=== PATIENT | female | born 1975 | race African-American/Black ===

== ENCOUNTER 2017-04-09 20:06 | Emergency (ER) | payer MEDICARE, MEDICAID ==
[~2017-04-09] VITALS: Ht 162.6 cm; Wt 141.5 kg
[~2017-04-09 20:06] MED LIST: ALBUTEROL SULF8.5 GM INH; DOXYCYCLINE MO100 MG ORAL; GABAPENTIN300 MG ORAL; GLIPIZIDE5 MG ORAL; HYDROCHLOROTHIA25 MG ORAL; LOSARTAN POTASS50 MG ORAL; METFORMIN HCL1000 M1 ORAL; NORCO 5-325 TA1 EACH ORAL; PREDNISONE20 M1 PO; RANITIDINE HCL150 MG ORAL; ROBITUSSIN AC5 ML ORAL; SIMVASTATIN10 MG ORAL
[2017-04-09 21:09] LABS: BASOPHILS % (AUTO) 1.4 % (0.0-2.0); EOSINOPHILS % (AUTO) 3.4 % (0.0-3.0); HEMOGLOBIN 11.9 G/DL (12.0-16.0); LYMPHOCYTES % (AUTO) 30.6 % (20.0-45.0); MEAN CORPUSCULAR VOLUME 86 FL (80-99); MONOCYTES % (AUTO) 6.2 % (1.0-10.0); NEUTROPHILS % (AUTO) 58.4 % (45.0-75.0); PLATELET COUNT 347 K/UL (150-450); RED BLOOD COUNT 4.75 M/UL (4.20-5.40); WHITE BLOOD COUNT 11.1 K/UL (4.8-10.8)
[2017-04-09 21:16] LABS: ANION GAP 11 mmol/L (5-15); BLOOD UREA NITROGEN 12 mg/dL (7-18); CARBON DIOXIDE 26 MMOL/L (21-32); CHLORIDE 102 MMOL/L (98-107); POTASSIUM 3.5 MMOL/L (3.5-5.1); SODIUM 139 MMOL/L (136-145)
[2017-04-09 21:29] LABS: ALANINE AMINOTRANSFERASE 21 U/L (12-78); ALBUMIN 3.9 G/DL (3.4-5.0); ALKALINE PHOSPHATASE 52 U/L (46-116); ASPARTATE AMINO TRANSFERASE 12 U/L (15-37); BILIRUBIN,TOTAL 0.3 MG/DL (0.2-1.0); CKMB 1.6 NG/ML (0.0-3.6); CREATINE KINASE 259 U/L (26-308)
[2017-04-09 22:05] VITALS: BP 132/78
[2017-04-09 22:10] VITALS: BP 131/82
--- NOTE | 2017-04-09 22:23 | Emergency Room Report ---
History of Present Illness General Chief Complaint: Chest Pain Source: Patient Present Illness HPI 41-year-old female presents ED complaining of chest pain. Started earlier today while at rest. Pain is localized to left side of the chest and underneath the left arm. 8/10, sharp. Nonradiating. Patient was seen at [facility] urgent care today and was diagnosed with muscle strain of was told to come to emergency room to "rule out ACS". History of hypertension and diabetes. Denies smoking or drug use. No other aggravating or leading factors. Denies any other associated symptoms Allergies: Coded Allergies: BENAZEPRIL (Verified Allergy, 06/10/13) Patient History Past Medical History: DM, HTN, COPD Past Surgical History: none Pertinent Family History: none Social History: Denies: smoking, alcohol use, drug use Last Menstrual Period: Mar 18 Now: No : 0 Immunizations: UTD Reviewed Nursing Documentation: PMH: Agreed, PSxH: Agreed Nursing Documentation-PMH Hx Cardiac Problems: Yes - sob Hx Hypertension: Yes Hx Asthma: Yes Hx COPD: Yes Hx Diabetes: Yes Hx Cancer: No Hx Gastrointestinal Problems: No Hx Neurological Problems: No Review of Systems All Other Systems: negative except mentioned in HPI Physical Exam Vital Signs Date Time Temp Pulse Resp B/P (MAP) Pulse Ox O2 Delivery O2 Flow Rate FiO2 04/09/17 20:15 99.0 92 18 131/82 98 Room Air Sp02 EP Interpretation: reviewed, normal General Appearance: no apparent distress, alert, GCS 15, non-toxic, obese Head: normocephalic, atraumatic Eyes: bilateral eye normal inspection, bilateral eye PERRL ENT: hearing grossly normal, normal pharynx, no angioedema, normal voice Neck: full range of motion, supple/symm/no masses Respiratory: lungs clear, normal breath sounds, speaking full sentences, other - L sided reproducible chest wall pain Cardiovascular #1: regular rate, rhythm, no edema Cardiovascular #2: 2+ carotid (R), 2+ carotid (L), 2+ radial (R), 2+ radial (L) , 2+ dorsalis pedis (R), 2+ dorsalis pedis (L) Gastrointestinal: normal bowel sounds, non tender, soft, non-distended, no guarding, no rebound Rectal: deferred Genitourinary: normal inspection, no CVA tenderness Musculoskeletal: back normal, gait/station normal, normal range of motion, non- tender Neurologic: alert, oriented x3, responsive, motor strength/tone normal, sensory intact, speech normal Psychiatric: judgement/insight normal, memory normal, mood/affect normal, no suicidal/homicidal ideation Reflexes: 3+ bicep (R), 3+ bicep (L), 3+ tricep (R), 3+ tricep (L), 3+ knee (R) , 3+ knee (L) Skin: normal color, no rash, warm/dry, well hydrated Lymphatic: no adenopathy Medical Decision Making Diagnostic Impression: Primary Impression: Chest wall pain ER Course Hospital Course 41 yo F presents to ED c/o chest pain. Differential diagnoses include: Rib fracture, ND/unstable angina, contusion, muscle strain Clinical course Patient placed on stretcher. After initial history and physical I ordered labs , EKG, chest x-ray. labs reviewed- all electrolytes normal, troponins negative, no leukocytosis, hemoglobin/hematocrit stable EKG - NSR, no acute ischemic changes interpreted by me Chest x-ray-no cardiomegaly, no rib fracture, no pneumothorax, no acute process Discussed findings with the patient. I agreed that the pain is likely muscular. Patient was prescribed Motrin and muscle asked her by urgent care. However I do recommend followup with PMD I. I feel this is a highly complex case requiring extensive working including EKG/Rhythm strip, Xray/CT/US, Blood/urine lab work, repeat exams while in ED, and administration of strong opiates/narcotics for pain control, admission to hospital or close patient follow up. Diagnosis - chest wall pain Stable and discharged to home. Instructed to followup with PMD. Return to ED if symptoms recur or worsen Labs Test 04/09/17 20:50 White Blood Count 11.1 K/UL (4.8-10.8) Red Blood Count 4.75 M/UL (4.20-5.40) Hemoglobin 11.9 G/DL (12.0-16.0) Hematocrit 41.0 % (37.0-47.0) Mean Corpuscular Volume 86 FL (80-99) Mean Corpuscular Hemoglobin 25.1 PG (27.0-31.0) Mean Corpuscular Hemoglobin Concent 29.1 G/DL (32.0-36.0) Red Cell Distribution Width 15.0 % (11.6-14.8) Platelet Count 347 K/UL (150-450) Mean Platelet Volume 5.6 FL (6.5-10.1) Neutrophils (%) (Auto) 58.4 % (45.0-75.0) Lymphocytes (%) (Auto) 30.6 % (20.0-45.0) Monocytes (%) (Auto) 6.2 % (1.0-10.0) Eosinophils (%) (Auto) 3.4 % (0.0-3.0) Basophils (%) (Auto) 1.4 % (0.0-2.0) Sodium Level 139 MMOL/L (136-145) Potassium Level 3.5 MMOL/L (3.5-5.1) Chloride Level 102 MMOL/L (98-107) Carbon Dioxide Level 26 MMOL/L (21-32) Anion Gap 11 mmol/L (5-15) Blood Urea Nitrogen 12 mg/dL (7-18) Creatinine 1.0 MG/DL (0.55-1.30) Estimat Glomerular Filtration Rate > 60 mL/min (>60) Glucose Level 89 MG/DL (74-106) Calcium Level 9.0 MG/DL (8.5-10.1) Total Bilirubin 0.3 MG/DL (0.2-1.0) Aspartate Amino Transf (AST/SGOT) 12 U/L (15-37) Alanine Aminotransferase (ALT/SGPT) 21 U/L (12-78) Alkaline Phosphatase 52 U/L (46-116) Total Creatine Kinase 259 U/L (26-308) Creatine Kinase MB 1.6 NG/ML (0.0-3.6) Creatine Kinase MB Relative Index 0.6 Troponin I 0.000 ng/mL (0.000-0.056) Pro-B-Type Natriuretic Peptide 25 pg/mL (0-125) Total Protein 7.8 G/DL (6.4-8.2) Albumin 3.9 G/DL (3.4-5.0) Globulin 3.9 g/dL Albumin/Globulin Ratio 1.0 (1.0-2.7) EKG Diagnostic Results Rate: normal Rhythm: NSR ST Segments: no acute changes ASA given to the pt in ED: No Rhythm Strip Diag. Results EP Interpretation: yes Rhythm: NSR, no PVC's, no ectopy Chest X-Ray Diagnostic Results Chest X-Ray Diagnostic Results : Chest X-Ray Ordered: Yes # of Views/Limited/Complete: 1 View Indication: Chest Pain EP Interpretation: Yes Interpretation: no consolidation, no effusion, no pneumothorax, no acute cardiopulmonary disease Impression: No acute disease Electronically Signed by: Electronically signed by Herbert Petersen MD Last Vital Signs Date Time Temp Pulse Resp B/P (MAP) Pulse Ox O2 Delivery O2 Flow Rate FiO2 04/09/17 22:10 99.0 18 131/82 98 Room Air 04/09/17 22:05 78 Status: improved Disposition: HOME, SELF-CARE Condition: Stable Referrals: NON PHYSICIAN (PCP) Patient Instructions: Chest Wall Pain, [id number] HERBERT PETERSEN M.D. Apr 09, 2017 22:23
--- NOTE | 2017-04-10 13:18 | Cardiology Report ---
APPROVED REPORT EKG Measurement Heart [id number] Normal sinus rhythm Normal ECG
--- NOTE | 2017-04-10 13:42 | Diagnostic Imaging Report ---
Indication: Chest pain Technique: XRAY Chest 1v Comparison: 09/12/2013 Findings: Limited exam due to underpenetration. Stable cardiomegaly. No definite focal airspace consolidation. No pleural effusion or pneumothorax. No acute bony abnormality appreciated. Impression: Limited exam. Stable cardiomegaly. No radiographic evidence of acute cardiopulmonary disease.
== END 2017-04-09 22:15 | disposition home or self-care (01) ==
LOC: EMR 20:50
DX: R07.89 Other chest pain (principal); J44.9 Chronic obstructive pulmonary disease, unspecified; I10 Essential (primary) hypertension; E11.9 Type 2 diabetes mellitus without complications; Z88.8 Allergy status to other drugs, medicaments and biological substances
CPT/HCPCS: 36415; 71045; 80053; 82550; 82553; 83880; 84484; 85025; 93005; 99283

== ENCOUNTER 2017-04-24 18:13 | Emergency (ER) | payer MEDICARE, MEDICAID ==
[~2017-04-24] VITALS: Ht 162.6 cm; Wt 163.3 kg
[2017-04-24 18:24] VITALS: BP 96/47
[2017-04-24] MEDS ORDERED: GLIPIZIDE10 MG PO (18:56)
[2017-04-24 19:43] LABS: BASOPHILS % (AUTO) 1.1 % (0.0-2.0); EOSINOPHILS % (AUTO) 2.5 % (0.0-3.0); LYMPHOCYTES % (AUTO) 24.7 % (20.0-45.0); MEAN CORPUSCULAR VOLUME 86 FL (80-99); MONOCYTES % (AUTO) 6.6 % (1.0-10.0); NEUTROPHILS % (AUTO) 65.2 % (45.0-75.0); PLATELET COUNT 357 K/UL (150-450); RED BLOOD COUNT 4.66 M/UL (4.20-5.40); RED CELL DISTRIBUTION WIDTH 15.1 % (11.6-14.8); WHITE BLOOD COUNT 11.1 K/UL (4.8-10.8)
[2017-04-24 19:58] LABS: ANION GAP 9 mmol/L (5-15); BLOOD UREA NITROGEN 11 mg/dL (7-18); CALCIUM 9.2 MG/DL (8.5-10.1); CARBON DIOXIDE 26 MMOL/L (21-32); CHLORIDE 101 MMOL/L (98-107); CREATININE 0.8 MG/DL (0.55-1.30); POTASSIUM 3.6 MMOL/L (3.5-5.1); SODIUM 136 MMOL/L (136-145)
[2017-04-24 20:13] LABS: ALANINE AMINOTRANSFERASE 20 U/L (12-78); ALBUMIN 3.8 G/DL (3.4-5.0); ALKALINE PHOSPHATASE 51 U/L (46-116); ASPARTATE AMINO TRANSFERASE 13 U/L (15-37); BILIRUBIN,TOTAL 0.4 MG/DL (0.2-1.0); CKMB 1.9 NG/ML (0.0-3.6); CREATINE KINASE 282 U/L (26-308)
--- NOTE | 2017-04-24 21:03 | Emergency Room Report ---
History of Present Illness General Chief Complaint: Upper Respiratory Illness Source: Patient, Medical Record Present Illness HPI 42 yo female patient presents to ER complaining of SOB for a "few hours". Patient states she thinks she may have PNA. Patient reports doing a breathing treatment at home that did not alleviate her symptoms. Patient states she needs a refill of her albuterol medication. Patient reports a history of sick contacts. Patient was seen in ER 2 weeks ago for chest pain and discharged Patient denies fever, nausea, vomiting, chest pain, purulent cough. Allergies: Coded Allergies: BENAZEPRIL (Verified Allergy, 06/10/13) Patient History Past Medical History: see triage record Social History: Denies: smoking, alcohol use, drug use Last Menstrual Period: long time ago Reviewed Nursing Documentation: PMH: Agreed, PSxH: Agreed Nursing Documentation-PMH Past Medical History: No History, Except For Hx Cardiac Problems: Yes - sob Hx Hypertension: Yes Hx Asthma: Yes Hx COPD: Yes Hx Diabetes: Yes Hx Cancer: No Hx Gastrointestinal Problems: No Hx Neurological Problems: No Review of Systems All Other Systems: negative except mentioned in HPI Physical Exam Vital Signs Date Time Temp Pulse Resp B/P (MAP) Pulse Ox O2 Delivery O2 Flow Rate FiO2 04/24/17 18:17 97.9 103 18 96/47 96 Room Air Sp02 EP Interpretation: reviewed, normal General Appearance: well appearing, no apparent distress, alert, non-toxic, obese Head: normocephalic, atraumatic Eyes: bilateral eye normal inspection, bilateral eye PERRL ENT: hearing grossly normal, normal pharynx, no angioedema, normal voice, TMs + canals normal, uvula midline, moist mucus membranes Neck: full range of motion Respiratory: normal breath sounds, no respiratory distress, no retraction, no accessory muscle use, rhonchi - intermittent, mild at lower lung bases, speaking full sentences, other - no stridor Cardiovascular #1: regular rate, rhythm Cardiovascular #2: 2+ radial (R), 2+ radial (L) Gastrointestinal: normal bowel sounds, non tender, soft, non-distended, no guarding, no rebound Musculoskeletal: back normal, digits/nails normal, gait/station normal, normal range of motion, non-tender, no calf tenderness, Tserling's Sign negative Neurologic: alert, oriented x3, responsive, motor strength/tone normal, sensory intact, speech normal Psychiatric: mood/affect normal Skin: normal color, no rash, warm/dry, well hydrated Lymphatic: no adenopathy Medical Decision Making PA Attestation Dr. Morgan is my supervising Physician whom patient management has been discussed with. Diagnostic Impression: Primary Impression: Upper respiratory infection ER Course Pt presents to ED c/o SOB. DDX considered but are not limited to influenza, viral URI, pneumonia, PE, NC, afib. VITALS Patient afebrile. Patient tachycardic and hypotensive. ER COURSE After consultation with Dr. Morgan, patient placed in monitored bed. Began workup to rule out underlying cardiac cause. Patient provided with prednisone in ER for breathing difficulty. Patient provided with IV fluids to increase blood pressure. Labs negative for elevated troponin, CK-MB and BNP within normal range. Influenza nasal swab negative for influenza A and B. CXR negative for acute disease. EKG negative for acute ST elevation or arrhythmia. At this time clinical suspicion for PE or cardiac cause of symptoms is unlikely , likely viral cause of symptoms. Vital signs improved. Discussed with patient course of treatment and likely diagnosis. Patient expressed understanding and agreement of treatment plan. DISCHARGE: Pt is stable for d/c to home. Patient to take medications as instructed. Will provide with patient care instructions and any necessary prescriptions. Care plan and follow-up instructions provided. Patient instructed to follow-up with primary care provider in 3 - 5 days. Patient questions asked and answered. ER precautions given. Patient instructed to return to ER immediately for any new or worsening of symptoms including but not limited to increasing SOB, persistent fever. Labs Test 04/24/17 19:15 White Blood Count 11.1 K/UL (4.8-10.8) Red Blood Count 4.66 M/UL (4.20-5.40) Hemoglobin 12.0 G/DL (12.0-16.0) Hematocrit 40.0 % (37.0-47.0) Mean Corpuscular Volume 86 FL (80-99) Mean Corpuscular Hemoglobin 25.8 PG (27.0-31.0) Mean Corpuscular Hemoglobin Concent 30.1 G/DL (32.0-36.0) Red Cell Distribution Width 15.1 % (11.6-14.8) Platelet Count 357 K/UL (150-450) Mean Platelet Volume 6.0 FL (6.5-10.1) Neutrophils (%) (Auto) 65.2 % (45.0-75.0) Lymphocytes (%) (Auto) 24.7 % (20.0-45.0) Monocytes (%) (Auto) 6.6 % (1.0-10.0) Eosinophils (%) (Auto) 2.5 % (0.0-3.0) Basophils (%) (Auto) 1.1 % (0.0-2.0) Sodium Level 136 MMOL/L (136-145) Potassium Level 3.6 MMOL/L (3.5-5.1) Chloride Level 101 MMOL/L (98-107) Carbon Dioxide Level 26 MMOL/L (21-32) Anion Gap 9 mmol/L (5-15) Blood Urea Nitrogen 11 mg/dL (7-18) Creatinine 0.8 MG/DL (0.55-1.30) Estimat Glomerular Filtration Rate > 60 mL/min (>60) Glucose Level 118 MG/DL (74-106) Calcium Level 9.2 MG/DL (8.5-10.1) Total Bilirubin 0.4 MG/DL (0.2-1.0) Aspartate Amino Transf (AST/SGOT) 13 U/L (15-37) Alanine Aminotransferase (ALT/SGPT) 20 U/L (12-78) Alkaline Phosphatase 51 U/L (46-116) Total Creatine Kinase 282 U/L (26-308) Creatine Kinase MB 1.9 NG/ML (0.0-3.6) Creatine Kinase MB Relative Index 0.6 Troponin I 0.000 ng/mL (0.000-0.056) Pro-B-Type Natriuretic Peptide 17 pg/mL (0-125) Total Protein 7.7 G/DL (6.4-8.2) Albumin 3.8 G/DL (3.4-5.0) Globulin 3.9 g/dL Albumin/Globulin Ratio 1.0 (1.0-2.7) EKG Diagnostic Results EKG Time: 19:05 Rate: tachycardiac Rhythm: NSR ST Segments: no acute changes Other Impression Sinus tachycardia Possible left atrial enlargement Borderline ECG ASA given to the pt in ED: No JEN WesleyibPeewee Griffith PA-C Rhythm Strip Diag. Results Rhythm Strip Time: 19:05 EP Interpretation: yes Rate: 101 Rhythm: NSR, no PVC's, no ectopy PA Scribe Text Carmine Griffith PA-C Chest X-Ray Diagnostic Results Chest X-Ray Diagnostic Results : Chest X-Ray Ordered: Yes # of Views/Limited/Complete: 1 View Indication: Shortness of Breath EP Interpretation: Yes PA Xray: Interpretation reviewed, by supervising MD, and agrees with findings. Interpretation: no consolidation, no effusion, no pneumothorax Impression: No acute disease JEN Scribe Text Carmine Griffith PA-C Last Vital Signs Date Time Temp Pulse Resp B/P (MAP) Pulse Ox O2 Delivery O2 Flow Rate FiO2 04/24/17 18:24 103 18 Room Air 04/24/17 18:24 97.9 96/47 96 Status: improved Reevaluation Impression Patient resting comfortably, in no acute distress, non-toxic appearing. Patients lung clear to auscultation on wheezes, rhonchi, crackles. Patient states she feels comfortable to be discharged home. Reports she will fill prescriptions and begin breathing treatment at home. Disposition: HOME, SELF-CARE Condition: Stable Scripts Prednisone* (PREDNISONE*) 20 Mg Tablet 20 MG ORAL DAILY for 2 Days, #2 TAB 0 Refills Prov: Miki Griffith 04/24/17 Albuterol Sulfate* (ALBUTEROL SULFATE HHN*) 2.5 Mg/3 Ml Vial.neb 3 ML INH Q6H Y for Shortness of Breath, #30 EA 0 Refills Prov: Miki Griffith 04/24/17 Albuterol Sulfate* (ALBUTEROL SULFATE MDI*) 8.5 Gm Hfa.aer.ad 2 PUFF INH Q6H, #1 INH 0 Refills Prov: Miki Griffith 04/24/17 Oseltamivir Phosphate (Tamiflu) 75 Mg Capsule 75 MG ORAL TWICE A DAY for 7 Days, #14 CAP Prov: Miki Griffith 04/24/17 Referrals: NOT CHOSEN IPA/,REFERRING (PCP) Patient Instructions: Upper Respiratory Infection, Adult Additional Instructions: Followup with primary care provider in 3 -5 days. Take medications as directed. Patient questions asked and answered. ER precautions given, patient instructed to return to ER immediately for any new or worsening of symptoms. Miki Griffith Apr 24, 2017 21:03
[2017-04-24] MEDS ORDERED: ALBUTEROL SULF8.5 GM INH (21:11)
[2017-04-24] MEDS ORDERED: TAMIFLU75 MG ORAL (21:11)
[2017-04-24] MEDS ORDERED: ALBUTEROL2.5 MG/3 M INH (21:15)
[2017-04-24] MEDS ORDERED: PREDNISONE20 MG ORAL (21:29)
[2017-04-24 21:45] VITALS: BP 107/62
[2017-04-24 21:58] VITALS: BP 107/62
--- NOTE | 2017-04-25 11:14 | Diagnostic Imaging Report ---
Indication: Chest pain Technique: XRAY Chest 1v Comparison: 04/09/2017 Findings: Limited exam due to underpenetration. Heart is enlarged but stable. No definite focal airspace consolidation. No pleural effusion or pneumothorax. No acute bony abnormality appreciated. Impression: Limited exam. No radiographic evidence of acute cardiopulmonary disease. Stable cardiomegaly.
[2017-04-25] MEDS ORDERED: PREDNISONE20 MG ORAL (19:27)
[2017-04-25] MEDS ORDERED: ALBUTEROL2.5 MG/3 M HHN (19:27)
--- NOTE | 2017-05-04 13:57 | Cardiology Report ---
APPROVED REPORT EKG Measurement Heart [id number] Sinus tachycardia Possible Left atrial enlargement Borderline ECG
== END 2017-04-24 21:58 | disposition home or self-care (01) ==
LOC: EMR 19:40
DX: J06.9 Acute upper respiratory infection, unspecified (principal); I10 Essential (primary) hypertension; J44.9 Chronic obstructive pulmonary disease, unspecified; E11.9 Type 2 diabetes mellitus without complications; Z88.8 Allergy status to other drugs, medicaments and biological substances
CPT/HCPCS: 36415; 71045; 80053; 82550; 82553; 83880; 84484; 85025; 86710; 93005; 96374; 99284; J7512

== ENCOUNTER 2017-04-25 18:14 | Emergency (ER) | payer MEDICARE, MEDICAID ==
[~2017-04-25] VITALS: Ht 162.6 cm; Wt 163.3 kg
[~2017-04-25 18:14] MED LIST changes: +ALBUTEROL2.5 MG/3 M INH; +GLIPIZIDE10 MG PO; +PREDNISONE20 MG ORAL; +TAMIFLU75 MG ORAL
[2017-04-25] MEDS ORDERED: Ipratropium 0.02% Inh Soln 2.5ml UD HHN ONE (18:30)
[2017-04-25] MEDS ORDERED: Albuterol ud Inhalation HHN ONE (18:30)
[2017-04-25] MEDS ORDERED: PREDNISONE20 MG ORAL (19:27)
[2017-04-25] MEDS ORDERED: ALBUTEROL2.5 MG/3 M HHN (19:27)
[2017-04-25 19:36] VITALS: BP 138/89
--- NOTE | 2017-04-25 21:14 | Emergency Room Report ---
History of Present Illness General Chief Complaint: Asthma Source: Patient Present Illness HPI 42-year-old female presents to ED for evaluation. Patient presented with cough and shortness of breath. Was seen here yesterday and was discharged prescriptions for albuterol and prednisone. States that she was unable to fill her prescriptions. Presents with cough which is dry. Shortness of breath. History of asthma. Denies fevers or chills. No other aggravating relieving factors. Denies any other associated symptoms Allergies: Coded Allergies: BENAZEPRIL (Verified Allergy, 06/10/13) Patient History Past Medical History: HTN, asthma, COPD Past Surgical History: none Pertinent Family History: none Social History: Denies: smoking, alcohol use, drug use Last Menstrual Period: 04/17/2017 Now: No Immunizations: UTD Reviewed Nursing Documentation: PMH: Agreed, PSxH: Agreed Nursing Documentation-PMH Past Medical History: No History, Except For Hx Cardiac Problems: Yes Hx Hypertension: Yes Hx Asthma: Yes Hx COPD: Yes Hx Diabetes: Yes Hx Cancer: No Hx Gastrointestinal Problems: No Hx Dialysis: No History Of Psychiatric Problem: No Hx Neurological Problems: No Review of Systems All Other Systems: negative except mentioned in HPI Physical Exam Vital Signs Date Time Temp Pulse Resp B/P (MAP) Pulse Ox O2 Delivery O2 Flow Rate FiO2 04/25/17 18:18 98.1 102 18 145/84 95 Room Air 04/25/17 18:35 21 Sp02 EP Interpretation: reviewed, normal General Appearance: no apparent distress, alert, GCS 15, non-toxic, obese Head: normocephalic, atraumatic Eyes: bilateral eye normal inspection, bilateral eye PERRL ENT: hearing grossly normal, normal pharynx, no angioedema, normal voice Neck: full range of motion, supple/symm/no masses Respiratory: chest non-tender, lungs clear, normal breath sounds, speaking full sentences Cardiovascular #1: regular rate, rhythm, no edema Cardiovascular #2: 2+ carotid (R), 2+ carotid (L), 2+ radial (R), 2+ radial (L) , 2+ dorsalis pedis (R), 2+ dorsalis pedis (L) Gastrointestinal: normal bowel sounds, non tender, soft, non-distended, no guarding, no rebound Rectal: deferred Genitourinary: normal inspection, no CVA tenderness Musculoskeletal: back normal, gait/station normal, normal range of motion, non- tender Neurologic: alert, oriented x3, responsive, motor strength/tone normal, sensory intact, speech normal Psychiatric: judgement/insight normal, memory normal, mood/affect normal, no suicidal/homicidal ideation Reflexes: 3+ bicep (R), 3+ bicep (L), 3+ tricep (R), 3+ tricep (L), 3+ knee (R) , 3+ knee (L) Skin: normal color, no rash, warm/dry, well hydrated Lymphatic: no adenopathy Medical Decision Making Diagnostic Impression: Primary Impression: Upper respiratory infection Qualified Codes: J06.9 - Acute upper respiratory infection, unspecified ER Course Hospital Course 42-year-old female presents to ED complaining of cough Differential diagnoses include: URI, bronchitis, asthma/COPD, pneumonia Clinical course Patient placed on stretcher. After initial history and physical I ordered prednisone and nebulizer treatment. Upon reassessment patient states cough and symptoms have improved. Patient states she was unable to fill her prescription yesterday because there is no ICD 10 code. We provided her with a new prescription of albuterol prednisone with a proper diagnosis Diagnosis - URI Stable and discharged home with prescriptions for Rx prednisone, albuterol. Instructed to followup with PMD. Return to ED if symptoms recur or worsen Last Vital Signs Date Time Temp Pulse Resp B/P (MAP) Pulse Ox O2 Delivery O2 Flow Rate FiO2 04/25/17 19:36 98.0 89 20 138/89 97 Room Air 04/25/17 18:35 21 Status: improved Disposition: HOME, SELF-CARE Condition: Stable Scripts Prednisone* (PREDNISONE*) 20 Mg Tablet 40 MG ORAL DAILY, #10 TAB Prov: ADRIA WITT M.D. 04/25/17 Albuterol Sulfate* (ALBUTEROL SULFATE HHN*) 2.5 Mg/3 Ml Vial.neb 2.5 MG HHN Q4H Y for Shortness of Breath, #25 VIAL Prov: ADRIA WITT M.D. 04/25/17 Referrals: NON PHYSICIAN (PCP) Patient Instructions: Asthma, Adult ADRIA WITT M.D. Apr 25, 2017 21:14
== END 2017-04-25 19:37 | disposition home or self-care (01) ==
LOC: EMR 18:28
DX: J06.9 Acute upper respiratory infection, unspecified (principal); Z88.8 Allergy status to other drugs, medicaments and biological substances; I10 Essential (primary) hypertension; J45.909 Unspecified asthma, uncomplicated; J44.9 Chronic obstructive pulmonary disease, unspecified; E11.9 Type 2 diabetes mellitus without complications
CPT/HCPCS: 94640; 99284; J7512

== ENCOUNTER 2017-04-27 13:27 | Inpatient (IN) | payer MEDICARE, MEDICAID ==
[~2017-04-27] VITALS: Ht 157.5 cm; Wt 122.5 kg
[~2017-04-27 13:27] MED LIST changes: +ALBUTEROL2.5 MG/3 M HHN
[2017-04-27] MEDS ORDERED: Albuterol/Ipratropium 3ml neb HHN ONE (13:45)
[2017-04-27 14:45] LABS: ANION GAP 12 mmol/L (5-15); BLOOD UREA NITROGEN 12 mg/dL (7-18); CALCIUM 9.4 MG/DL (8.5-10.1); CARBON DIOXIDE 26 MMOL/L (21-32); CHLORIDE 107 MMOL/L (98-107); POTASSIUM 4.3 MMOL/L (3.5-5.1); SODIUM 144 MMOL/L (136-145)
[2017-04-27 14:58] LABS: APPEARANCE,URINE CLEAR; BILIRUBIN, URINE NEGATIVE (NEGATIVE); COLOR,URINE PALE YELLOW; GLUCOSE, URINE (UA) 4+ (NEGATIVE); KETONES,URINE NEGATIVE (NEGATIVE); LEUKOCYTE ESTERASE ,URINE NEGATIVE (NEGATIVE); NITRITE,URINE NEGATIVE (NEGATIVE); PH,URINE 6 (4.5-8.0); PROTEIN,URINE NEGATIVE (NEGATIVE); UROBILINOGEN,URINE NORMAL MG/DL (0.0-1.0)
[2017-04-27 14:58] LABS: ALANINE AMINOTRANSFERASE 25 U/L (12-78); ALBUMIN/GLOBULIN RATIO 1.1 (1.0-2.7); ALKALINE PHOSPHATASE 53 U/L (46-116); ASPARTATE AMINO TRANSFERASE 14 U/L (15-37); BASOPHILS % (AUTO) 0.9 % (0.0-2.0); BILIRUBIN,TOTAL 0.2 MG/DL (0.2-1.0); EOSINOPHILS % (AUTO) 0.3 % (0.0-3.0); HEMATOCRIT 38.8 % (37.0-47.0); HEMOGLOBIN 11.8 G/DL (12.0-16.0); LYMPHOCYTES % (AUTO) 15.1 % (20.0-45.0); MEAN CORPUSCULAR VOLUME 88 FL (80-99); MONOCYTES % (AUTO) 3.7 % (1.0-10.0); PLATELET COUNT 360 K/UL (150-450); RED BLOOD COUNT 4.43 M/UL (4.20-5.40); RED CELL DISTRIBUTION WIDTH 15.3 % (11.6-14.8)
[2017-04-27 15:10] LABS: INR 0.9 (0.9-1.1)
[2017-04-27] MEDS ORDERED: Albuterol/Ipratropium 3ml neb HHN PRN (15:45)
[2017-04-27] MEDS ORDERED: Nitroglycerin Subl 0.4mg tab SL PRN (15:45)
[2017-04-27] MEDS ORDERED: dilTIAZem HCl 25mg/5ml Inj IV PRN (15:45)
[2017-04-27] MEDS ORDERED: Ketorolac 30mg Inj IV PRN (15:45)
[2017-04-27] MEDS ORDERED: Miralax 17gm pkt ORAL PRN (15:45)
[2017-04-27 16:48] VITALS: BP 153/78
[2017-04-27] MEDS: NovoLOG Insulin Flexpen SUBQ SCH ×2 (17:13→22:28)
--- NOTE | 2017-04-27 18:54 | History and Physical ---
History of Present Illness General Date patient seen: Apr 27, 2017 Reason for Hospitalization: Upper Respiratory Illness Present Illness HPI 42-year-old female with hx of asthma, morbid obesity presented to ED for evaluation of cough and shortness of breath. Denies fevers or chills. No other aggravating relieving factors. She was seen twice in the recent days in the ER and was discharged with oral abx and steroids, She kept coming back because she was not getting better. Allergies: Coded Allergies: TREE NUT (Verified Allergy, Severe, 04/27/17) SOYBEAN (Verified Allergy, Intermediate, 04/27/17) BENAZEPRIL (Verified Allergy, Unknown, 04/27/17) Medication History Scheduled Albuterol Sulfate* (Albuterol Sulfate Mdi*), 2 PUFF INH Q6H Hydrochlorothiazide* (Hydrochlorothiazide*), 25 MG ORAL DAILY, (Reported) Losartan Potassium* (Losartan Potassium*), 100 MG ORAL DAILY, (Reported) Metformin Hcl* (Metformin Hcl*), 1,000 MG ORAL BID, (Reported) Oseltamivir Phosphate (Tamiflu), 75 MG ORAL TWICE A DAY Prednisone* (Prednisone*), 20 MG ORAL DAILY Prednisone* (Prednisone*), 40 MG ORAL DAILY Ranitidine Hcl* (Zantac*), 150 MG ORAL DAILY, (Reported) Simvastatin (Zocor), 10 MG ORAL BEDTIME, (Reported) Miscellaneous Medications Glipizide (Glipizide), 10 MG PO, (Reported) Discontinued Medications Doxycycline Monohydrate* (Doxycycline Monohydrate*), 100 MG ORAL Q12H Discontinued Reason: Therapy completed Guaifenesin/Codeine (Guaifenesin-Codeine Syrup), 5 ML ORAL Q4H PRN for For Cough Discontinued Reason: Therapy completed Hydrocodone Bit/Acetaminophen 5-325* ([place] 5-325*), 1 TAB ORAL Q6H PRN for For Pain Discontinued Reason: Therapy completed Hydrocodone Bit/Acetaminophen 5-325* ([place] 5-325*), 1 TAB ORAL Q6H PRN for For Pain Discontinued Reason: Therapy completed Prednisone (Prednisone), 20 MG PO DAILY Discontinued Reason: Medication dose changed Patient History Healthcare decision maker Resuscitation status Full Code Advanced Directive on File Past Medical/Surgical History Past Medical/Surgical History: (1) History of asthma Review of Systems All Other Systems: negative except mentioned in HPI Physical Exam General Appearance: WD/WN Lines, tubes and drains: peripheral HEENT: normocephalic Neck: non-tender, normal alignment Respiratory/Chest: chest wall non-tender, rhonchi - left, rhonchi - right Cardiovascular/Chest: normal peripheral pulses, normal rate Abdomen: normal bowel sounds, non tender Extremities: normal range of motion, non-tender Last 24 Hour Vital Signs Date Time Temp Pulse Resp B/P (MAP) Pulse Ox O2 Delivery O2 Flow Rate FiO2 04/27/17 16:52 89 19 Room Air 04/27/17 16:48 98.0 88 18 153/78 97 Room Air 04/27/17 15:37 98.1 20 132/71 98 Room Air 21 04/27/17 14:16 100 20 Room Air 21 04/27/17 14:14 100 20 98 Room Air 21 04/27/17 14:04 103 20 95 Room Air 21 04/27/17 13:30 98.1 100 18 147/74 97 Room Air Laboratory Tests Test 04/27/17 14:00 04/27/17 14:05 Urine Color Pale yellow Urine Appearance Clear Urine pH 6 (4.5-8.0) Urine Specific [place] 1.010 (1.005-1.035) Urine Protein Negative (NEGATIVE) Urine Glucose (UA) 4+ (NEGATIVE) H Urine Ketones Negative (NEGATIVE) Urine Occult Blood Negative (NEGATIVE) Urine Nitrite Negative (NEGATIVE) Urine Bilirubin Negative (NEGATIVE) Urine Urobilinogen Normal MG/DL (0.0-1.0) Urine Leukocyte Esterase Negative (NEGATIVE) Urine RBC 0-2 /HPF (0 - 2) Urine WBC 0-2 /HPF (0 - 2) Urine Squamous Epithelial Cells Occasional /LPF Urine Bacteria Occasional /HPF (NONE) Urine HCG, Qualitative Negative White Blood Count 12.0 K/UL (4.8-10.8) H Red Blood Count 4.43 M/UL (4.20-5.40) Hemoglobin 11.8 G/DL (12.0-16.0) L Hematocrit 38.8 % (37.0-47.0) Mean Corpuscular Volume 88 FL (80-99) Mean Corpuscular Hemoglobin 26.5 PG (27.0-31.0) L Mean Corpuscular Hemoglobin Concent 30.3 G/DL (32.0-36.0) L Red Cell Distribution Width 15.3 % (11.6-14.8) H Platelet Count 360 K/UL (150-450) Mean Platelet Volume 5.9 FL (6.5-10.1) L Neutrophils (%) (Auto) 80.0 % (45.0-75.0) H Lymphocytes (%) (Auto) 15.1 % (20.0-45.0) L Monocytes (%) (Auto) 3.7 % (1.0-10.0) Eosinophils (%) (Auto) 0.3 % (0.0-3.0) Basophils (%) (Auto) 0.9 % (0.0-2.0) Prothrombin Time 9.7 SEC (9.30-11.50) Prothromb Time International Ratio 0.9 (0.9-1.1) Activated Partial Thromboplast Time 22 SEC (23-33) L D-Dimer 0.31 mg/L FEU (0.00-0.49) Sodium Level 144 MMOL/L (136-145) Potassium Level 4.3 MMOL/L (3.5-5.1) Chloride Level 107 MMOL/L (98-107) Carbon Dioxide Level 26 MMOL/L (21-32) Anion Gap 12 mmol/L (5-15) Blood Urea Nitrogen 12 mg/dL (7-18) Creatinine 1.0 MG/DL (0.55-1.30) Estimat Glomerular Filtration Rate > 60 mL/min (>60) Glucose Level 157 MG/DL (74-106) H Calcium Level 9.4 MG/DL (8.5-10.1) Total Bilirubin 0.2 MG/DL (0.2-1.0) Aspartate Amino Transf (AST/SGOT) 14 U/L (15-37) L Alanine Aminotransferase (ALT/SGPT) 25 U/L (12-78) Alkaline Phosphatase 53 U/L (46-116) Troponin I 0.000 ng/mL (0.000-0.056) Pro-B-Type Natriuretic Peptide 76 pg/mL (0-125) Total Protein 7.5 G/DL (6.4-8.2) Albumin 4.0 G/DL (3.4-5.0) Globulin 3.5 g/dL Albumin/Globulin Ratio 1.1 (1.0-2.7) Thyroid Stimulating Hormone (TSH) 1.148 uiU/mL (0.358-3.740) Height (Feet): 5 Height (Inches): 2.00 Weight (Pounds): 270 Medications Current Medications Medications (Trade) Dose Ordered Sig/Al Route PRN Reason Start Time Stop Time Status Last Admin Dose Admin Acetaminophen (Tylenol) 650 mg Q4H PRN ORAL FEVER 04/27/17 15:45 05/27/17 15:44 Albuterol/ Ipratropium (Albuterol/ Ipratropium) 3 ml Q4H PRN HHN Shortness of Breath 04/27/17 15:45 05/02/17 15:44 Aspirin (ASA) 162 mg DAILY ORAL 04/28/17 09:00 05/28/17 08:59 Dextrose (Dextrose 50%) STAT PRN IV Hypoglycemia 04/27/17 15:45 05/27/17 15:44 Diltiazem HCl (Cardizem) 10 mg Q1H PRN IV HR > 120 04/27/17 15:45 05/27/17 15:44 Heparin Sodium (Porcine) (Heparin 5000 units/ml) 5,000 units EVERY 8 HOURS SUBQ 04/27/17 22:00 05/27/17 21:59 Insulin Aspart (NovoLOG) BEFORE MEALS AND HS SUBQ 04/27/17 16:30 05/27/17 16:29 04/27/17 17:13 Morphine Sulfate (Morphine Sulfate) 2 mg Q4H PRN IVP severe Pain (Pain Scale 7-10) 04/27/17 15:45 05/04/17 15:44 Nitroglycerin (Ntg) 0.4 mg Every 5 Minutes PRN SL Prn Chest Pain 04/27/17 15:45 05/27/17 15:44 Ondansetron HCl (Zofran) 4 mg Q6H PRN IVP Nausea & Vomiting 04/27/17 15:45 05/27/17 15:44 Pantoprazole (Protonix) 40 mg DAILY ORAL 04/28/17 09:00 05/28/17 08:59 Polyethylene Glycol (Miralax) 17 gm DAILYPRN PRN ORAL Constipation 04/27/17 15:45 05/27/17 15:44 Temazepam (Restoril) 15 mg HSPRN PRN ORAL Insomnia 04/27/17 15:45 05/04/17 15:44 Assessment/Plan Problem List: (1) Acute asthma exacerbation ICD Codes: J45.901 - Unspecified asthma with (acute) exacerbation SNOMED: 008657303 (2) History of asthma ICD Codes: Z87.09 - Personal history of other diseases of the respiratory system SNOMED: 540924505 (3) Morbid obesity ICD Codes: E66.01 - Morbid (severe) obesity due to excess calories SNOMED: 470643938, [id number] Assessment/Plan respiratory treatment iv abx check sputum check echo. cardio to see. YAYA HEBERT Apr 27, 2017 18:54
[2017-04-27 20:00] VITALS: BP 121/61
[2017-04-27] MEDS: Heparin 5000 units/ml inj SUBQ SCH (22:29)
[2017-04-28] VITALS: BP 115/62
[2017-04-28 04:00] VITALS: BP 107/58
[2017-04-28] MEDS: Heparin 5000 units/ml inj SUBQ SCH ×3 (06:16→21:38)
[2017-04-28] MEDS: NovoLOG Insulin Flexpen SUBQ SCH ×4 (06:17→21:37)
[2017-04-28 08:00] VITALS: BP 131/79
[2017-04-28] MEDS: Aspirin Baby 81mg ORAL SCH (08:19)
[2017-04-28 08:21] LABS: BASOPHILS % (AUTO) 0.7 % (0.0-2.0); EOSINOPHILS % (AUTO) 0.7 % (0.0-3.0); HEMATOCRIT 34.8 % (37.0-47.0); HEMOGLOBIN 10.8 G/DL (12.0-16.0); LYMPHOCYTES % (AUTO) 33.5 % (20.0-45.0); MEAN CORPUSCULAR VOLUME 87 FL (80-99); MONOCYTES % (AUTO) 5.9 % (1.0-10.0); NEUTROPHILS % (AUTO) 59.2 % (45.0-75.0); PLATELET COUNT 319 K/UL (150-450); RED BLOOD COUNT 4.02 M/UL (4.20-5.40); RED CELL DISTRIBUTION WIDTH 14.9 % (11.6-14.8); WHITE BLOOD COUNT 13.8 K/UL (4.8-10.8)
[2017-04-28] MEDS: Morphine Sulfate 4mg/ml Inj IVP PRN (08:23)
[2017-04-28 08:29] LABS: CHOLESTEROL 134 MG/DL (< 200); HDL CHOLESTEROL 33 MG/DL (40-60); TRIGLYCERIDES 162 MG/DL (30-150)
[2017-04-28 12:00] VITALS: BP 133/87
--- NOTE | 2017-04-28 13:02 | Pulmonology Progress Note ---
Assessment/Plan Problems: (1) Acute asthma exacerbation (2) History of asthma (3) Morbid obesity Assessment/Plan check sputum check cultures titrate fio2 to sat of 92% Subjective ROS Limited/Unobtainable: No Interval Events: still short of breath Constitutional: Reports: no symptoms HEENT: Repors: no symptoms Respiratory: Reports: no symptoms Allergies: Coded Allergies: TREE NUT (Verified Allergy, Severe, 04/27/17) SOYBEAN (Verified Allergy, Intermediate, 04/27/17) BENAZEPRIL (Verified Allergy, Unknown, 04/27/17) Objective Last 24 Hour Vital Signs Date Time Temp Pulse Resp B/P (MAP) Pulse Ox O2 Delivery O2 Flow Rate FiO2 04/28/17 07:42 95 04/28/17 05:30 94 27 98 Nasal 21 04/28/17 04:00 97.7 77 18 107/58 98 04/28/17 04:00 81 04/28/17 03:22 93 32 99 Nasal 21 04/28/17 01:42 99 23 99 Nasal 21 04/28/17 00:00 97 04/28/17 00:00 91 04/28/17 00:00 97.4 91 20 115/62 100 04/27/17 20:00 98.8 98 20 121/61 100 04/27/17 16:52 89 19 Room Air 04/27/17 16:48 98.0 88 18 153/78 97 Room Air 04/27/17 15:37 98.1 20 132/71 98 Room Air 21 04/27/17 14:16 100 20 Room Air 21 04/27/17 14:14 100 20 98 Room Air 21 04/27/17 14:04 103 20 95 Room Air 21 04/27/17 13:30 98.1 100 18 147/74 97 Room Air Intake and Output 04/27/17 04/28/17 19:00 07:00 Intake Total 350 ml Balance 350 ml Intake Oral 350 ml # Voids 1 1 Objective General Appearance: WD/WN Lines, tubes and drains: peripheral HEENT: normocephalic Neck: non-tender, normal alignment Respiratory/Chest: chest wall non-tender, rhonchi - left, rhonchi - right Cardiovascular/Chest: normal peripheral pulses, normal rate Abdomen: normal bowel sounds, non tender Extremities: normal range of motion, non-tender General Appearance: WD/WN Laboratory Tests 04/27/17 14:00: Urine Color Pale yellow, Urine Appearance Clear, Urine pH 6, Urine Specific [place] 1.010, Urine Protein Negative, Urine Glucose (UA) 4+H, Urine Ketones Negative, Urine Occult Blood Negative, Urine Nitrite Negative, Urine Bilirubin Negative, Urine Urobilinogen Normal, Urine Leukocyte Esterase Negative, Urine RBC 0-2, Urine WBC 0-2, Urine Squamous Epithelial Cells Occasional, Urine Bacteria Occasional, Urine HCG, Qualitative Negative 04/27/17 14:05: White Blood Count 12.0H, Red Blood Count 4.43, Hemoglobin 11.8L, Hematocrit 38.8 , Mean Corpuscular Volume 88, Mean Corpuscular Hemoglobin 26.5L, Mean Corpuscular Hemoglobin Concent 30.3L, Red Cell Distribution Width 15.3H, Platelet Count 360, Mean Platelet Volume 5.9L, Neutrophils (%) (Auto) 80.0H, Lymphocytes (%) (Auto) 15.1L, Monocytes (%) (Auto) 3.7, Eosinophils (%) (Auto) 0.3, Basophils (%) (Auto) 0.9, Prothrombin Time 9.7, Prothromb Time International Ratio 0.9, Activated Partial Thromboplast Time 22L, D-Dimer 0.31, Sodium Level 144, Potassium Level 4.3, Chloride Level 107, Carbon Dioxide Level 26, Anion Gap 12, Blood Urea Nitrogen 12, Creatinine 1.0, Estimat Glomerular Filtration Rate > 60, Glucose Level 157H, Calcium Level 9.4, Total Bilirubin 0.2 , Aspartate Amino Transf (AST/SGOT) 14L, Alanine Aminotransferase (ALT/SGPT) 25 , Alkaline Phosphatase 53, Troponin I 0.000, Pro-B-Type Natriuretic Peptide 76, Total Protein 7.5, Albumin 4.0, Globulin 3.5, Albumin/Globulin Ratio 1.1, Thyroid Stimulating Hormone (TSH) 1.148 04/28/17 06:05: White Blood Count 13.8H, Red Blood Count 4.02L, Hemoglobin 10.8L, Hematocrit 34.8L, Mean Corpuscular Volume 87, Mean Corpuscular Hemoglobin 26.8L, Mean Corpuscular Hemoglobin Concent 30.9L, Red Cell Distribution Width 14.9H, Platelet Count 319, Mean Platelet Volume 5.8L, Neutrophils (%) (Auto) 59.2, Lymphocytes (%) (Auto) 33.5, Monocytes (%) (Auto) 5.9, Eosinophils (%) (Auto) 0.7, Basophils (%) (Auto) 0.7, Prothrombin Time 10.0, Prothromb Time International Ratio 1.0, Activated Partial Thromboplast Time 22L, Troponin I 0.000, Thyroid Stimulating Hormone (TSH) 2.316, C-Reactive Protein, Quantitative < 0.4, Triglycerides Level 162H, Cholesterol Level 134, LDL Cholesterol 86, HDL Cholesterol 33L, Cholesterol/HDL Ratio 4.1 Current Medications Medications (Trade) Dose Ordered Sig/Al Route PRN Reason Start Time Stop Time Status Last Admin Dose Admin Acetaminophen (Tylenol) 650 mg Q4H PRN ORAL FEVER 04/27/17 15:45 05/27/17 15:44 Albuterol/ Ipratropium (Albuterol/ Ipratropium) 3 ml Q4H PRN HHN Shortness of Breath 04/27/17 15:45 05/02/17 15:44 Aspirin (ASA) 162 mg DAILY ORAL 04/28/17 09:00 05/28/17 08:59 04/28/17 08:19 Dextrose (Dextrose 50%) STAT PRN IV Hypoglycemia 04/27/17 15:45 05/27/17 15:44 Diltiazem HCl (Cardizem) 10 mg Q1H PRN IV HR > 120 04/27/17 15:45 05/27/17 15:44 Heparin Sodium (Porcine) (Heparin 5000 units/ml) 5,000 units EVERY 8 HOURS SUBQ 04/27/17 22:00 05/27/17 21:59 04/28/17 06:16 Insulin Aspart (NovoLOG) BEFORE MEALS AND HS SUBQ 04/27/17 16:30 05/27/17 16:29 04/28/17 11:42 Morphine Sulfate (Morphine Sulfate) 2 mg Q4H PRN IVP severe Pain (Pain Scale 7-10) 04/27/17 15:45 05/04/17 15:44 04/28/17 08:23 Nitroglycerin (Ntg) 0.4 mg Every 5 Minutes PRN SL Prn Chest Pain 04/27/17 15:45 05/27/17 15:44 Ondansetron HCl (Zofran) 4 mg Q6H PRN IVP Nausea & Vomiting 04/27/17 15:45 05/27/17 15:44 Pantoprazole (Protonix) 40 mg DAILY ORAL 04/28/17 09:00 05/28/17 08:59 04/28/17 08:16 Polyethylene Glycol (Miralax) 17 gm DAILYPRN PRN ORAL Constipation 04/27/17 15:45 05/27/17 15:44 Temazepam (Restoril) 15 mg HSPRN PRN ORAL Insomnia 04/27/17 15:45 05/04/17 15:44 04/27/17 23:59 YAYA HEBERT Apr 28, 2017 13:02
--- NOTE | 2017-04-28 13:15 | Emergency Room Report ---
History of Present Illness General Chief Complaint: Upper Respiratory Illness Source: Patient, Medical Record Present Illness HPI Patient is a 42-year-old female who presented to increased difficulty breathing. Patient gradual onset of symptoms. Patient was noted to have increased difficulty with respirations since approximately 2 weeks ago. The patient had been seen multiple times emergency department since then. She was noted to have increased difficulty with exertion and as well as the difficulty breathing associated with some choking sensation. The patient has prior history of hypertension and as well as diabetes and obesity. She denies any fever. She states that she's not been having a productive cough.Patient had recently had her diuretics held after hypotensive episode. She had been started on oral steroids Allergies: Coded Allergies: TREE NUT (Verified Allergy, Severe, 04/27/17) SOYBEAN (Verified Allergy, Intermediate, 04/27/17) BENAZEPRIL (Verified Allergy, Unknown, 04/27/17) Patient History Past Medical History: see triage record Last Menstrual Period: 04/17/17 Reviewed Nursing Documentation: PMH: Agreed, PSxH: Agreed Nursing Documentation-PMH Past Medical History: No History, Except For Hx Cardiac Problems: Yes Hx Hypertension: Yes Hx Asthma: Yes Hx COPD: Yes Hx Diabetes: Yes Hx Cancer: No Hx Gastrointestinal Problems: No Hx Dialysis: No Hx Neurological Problems: No Review of Systems All Other Systems: negative except mentioned in HPI Physical Exam Vital Signs Date Time Temp Pulse Resp B/P (MAP) Pulse Ox O2 Delivery O2 Flow Rate FiO2 04/27/17 13:30 98.1 100 18 147/74 97 Room Air 04/27/17 14:04 21 Sp02 EP Interpretation: reviewed, normal General Appearance: normal inspection, well appearing, no apparent distress, alert, GCS 15, non-toxic Head: atraumatic ENT: normal ENT inspection, hearing grossly normal, normal voice Neck: normal inspection, full range of motion, supple, no bony tend Respiratory: normal inspection, lungs clear, normal breath sounds, no respiratory distress, no retraction, no wheezing Cardiovascular #1: regular rate, rhythm, no edema Gastrointestinal: normal inspection, normal bowel sounds, non tender, soft, no guarding, no hernia Genitourinary: no CVA tenderness Musculoskeletal: normal inspection, back normal, normal range of motion Neurologic: normal inspection, alert, oriented x3, responsive, sales service professional III-XII nml as tested, speech normal Psychiatric: normal inspection, judgement/insight normal, mood/affect normal Skin: normal inspection, normal color, no rash Medical Decision Making Diagnostic Impression: Primary Impression: asthma exacebration ER Course Patient presented for shortness of breath. Differential included but was not limited to anemia, pneumonia, pneumothorax, myocardial infarction, pericardial effusion, congestive heart failure, acidosis. Because of complexity of patient' s case laboratory testing and imaging studies were ordered.The laboratory studies showed normal white blood count. The patient's EKG showed normal sinus rhythm with nonspecific ST changes. The patient was given aspirin. She is given breathing treatments. Dr. Granado was contacted for inpatient management due to complexity of medical condition and increased respiratory symptoms and chest pain. Labs Test 04/27/17 14:00 04/27/17 14:05 04/28/17 06:05 Urine Color Pale yellow Urine Appearance Clear Urine pH 6 (4.5-8.0) Urine Specific [place] 1.010 (1.005-1.035) Urine Protein Negative (NEGATIVE) Urine Glucose (UA) 4+ (NEGATIVE) Urine Ketones Negative (NEGATIVE) Urine Occult Blood Negative (NEGATIVE) Urine Nitrite Negative (NEGATIVE) Urine Bilirubin Negative (NEGATIVE) Urine Urobilinogen Normal MG/DL (0.0-1.0) Urine Leukocyte Esterase Negative (NEGATIVE) Urine RBC 0-2 /HPF (0 - 2) Urine WBC 0-2 /HPF (0 - 2) Urine Squamous Epithelial Cells Occasional /LPF Urine Bacteria Occasional /HPF (NONE) Urine HCG, Qualitative Negative D-Dimer 0.31 mg/L FEU (0.00-0.49) Sodium Level 144 MMOL/L (136-145) Potassium Level 4.3 MMOL/L (3.5-5.1) Chloride Level 107 MMOL/L (98-107) Carbon Dioxide Level 26 MMOL/L (21-32) Anion Gap 12 mmol/L (5-15) Blood Urea Nitrogen 12 mg/dL (7-18) Creatinine 1.0 MG/DL (0.55-1.30) Estimat Glomerular Filtration Rate > 60 mL/min (>60) Glucose Level 157 MG/DL (74-106) Calcium Level 9.4 MG/DL (8.5-10.1) Total Bilirubin 0.2 MG/DL (0.2-1.0) Aspartate Amino Transf (AST/SGOT) 14 U/L (15-37) Alanine Aminotransferase (ALT/SGPT) 25 U/L (12-78) Alkaline Phosphatase 53 U/L (46-116) Pro-B-Type Natriuretic Peptide 76 pg/mL (0-125) Total Protein 7.5 G/DL (6.4-8.2) Albumin 4.0 G/DL (3.4-5.0) Globulin 3.5 g/dL Albumin/Globulin Ratio 1.1 (1.0-2.7) White Blood Count 13.8 K/UL (4.8-10.8) Red Blood Count 4.02 M/UL (4.20-5.40) Hemoglobin 10.8 G/DL (12.0-16.0) Hematocrit 34.8 % (37.0-47.0) Mean Corpuscular Volume 87 FL (80-99) Mean Corpuscular Hemoglobin 26.8 PG (27.0-31.0) Mean Corpuscular Hemoglobin Concent 30.9 G/DL (32.0-36.0) Red Cell Distribution Width 14.9 % (11.6-14.8) Platelet Count 319 K/UL (150-450) Mean Platelet Volume 5.8 FL (6.5-10.1) Neutrophils (%) (Auto) 59.2 % (45.0-75.0) Lymphocytes (%) (Auto) 33.5 % (20.0-45.0) Monocytes (%) (Auto) 5.9 % (1.0-10.0) Eosinophils (%) (Auto) 0.7 % (0.0-3.0) Basophils (%) (Auto) 0.7 % (0.0-2.0) Prothrombin Time 10.0 SEC (9.30-11.50) Prothromb Time International Ratio 1.0 (0.9-1.1) Activated Partial Thromboplast Time 22 SEC (23-33) Troponin I 0.000 ng/mL (0.000-0.056) C-Reactive Protein, Quantitative < 0.4 mg/dL (0.00-0.90) Triglycerides Level 162 MG/DL (30-150) Cholesterol Level 134 MG/DL (< 200) LDL Cholesterol 86 mg/dL (<100) HDL Cholesterol 33 MG/DL (40-60) Cholesterol/HDL Ratio 4.1 (3.3-4.4) Thyroid Stimulating Hormone (TSH) 2.316 uiU/mL (0.358-3.740) Last Vital Signs Date Time Temp Pulse Resp B/P (MAP) Pulse Ox O2 Delivery O2 Flow Rate FiO2 04/28/17 07:42 95 04/28/17 05:30 27 98 Nasal 21 04/28/17 04:00 97.7 107/58 Status: unchanged Disposition: ADMITTED INPATIENT Condition: Serious Referrals: NON PHYSICIAN (PCP) Migue Morgan Apr 28, 2017 13:15
--- NOTE | 2017-04-28 14:17 | Cardiology Progress Note ---
Assessment/Plan Assessment/Plan [facility] exacerbation obesity gerd hs dm htn doubt chf probnp nrml , trop norl ekg neg echo prelim neg treat for asthma exacerbation in future can consider stress testing if more [id number] Objective Last 24 Hour Vital Signs Date Time Temp Pulse Resp B/P (MAP) Pulse Ox O2 Delivery O2 Flow Rate FiO2 04/28/17 07:42 95 04/28/17 05:30 94 27 98 Nasal 21 04/28/17 04:00 97.7 77 18 107/58 98 04/28/17 04:00 81 04/28/17 03:22 93 32 99 Nasal 21 04/28/17 01:42 99 23 99 Nasal 21 04/28/17 00:00 97 04/28/17 00:00 91 04/28/17 00:00 97.4 91 20 115/62 100 04/27/17 20:00 98.8 98 20 121/61 100 04/27/17 16:52 89 19 Room Air 04/27/17 16:48 98.0 88 18 153/78 97 Room Air 04/27/17 15:37 98.1 20 132/71 98 Room Air 21 04/27/17 14:16 100 20 Room Air 21 Intake and Output 04/27/17 04/28/17 19:00 07:00 Intake Total 350 ml Balance 350 ml Intake Oral 350 ml # Voids 1 1 Laboratory Tests Test 04/28/17 06:05 White Blood Count 13.8 K/UL (4.8-10.8) H Red Blood Count 4.02 M/UL (4.20-5.40) L Hemoglobin 10.8 G/DL (12.0-16.0) L Hematocrit 34.8 % (37.0-47.0) L Mean Corpuscular Volume 87 FL (80-99) Mean Corpuscular Hemoglobin 26.8 PG (27.0-31.0) L Mean Corpuscular Hemoglobin Concent 30.9 G/DL (32.0-36.0) L Red Cell Distribution Width 14.9 % (11.6-14.8) H Platelet Count 319 K/UL (150-450) Mean Platelet Volume 5.8 FL (6.5-10.1) L Neutrophils (%) (Auto) 59.2 % (45.0-75.0) Lymphocytes (%) (Auto) 33.5 % (20.0-45.0) Monocytes (%) (Auto) 5.9 % (1.0-10.0) Eosinophils (%) (Auto) 0.7 % (0.0-3.0) Basophils (%) (Auto) 0.7 % (0.0-2.0) Prothrombin Time 10.0 SEC (9.30-11.50) Prothromb Time International Ratio 1.0 (0.9-1.1) Activated Partial Thromboplast Time 22 SEC (23-33) L Troponin I 0.000 ng/mL (0.000-0.056) C-Reactive Protein, Quantitative < 0.4 mg/dL (0.00-0.90) Triglycerides Level 162 MG/DL (30-150) H Cholesterol Level 134 MG/DL (< 200) LDL Cholesterol 86 mg/dL (<100) HDL Cholesterol 33 MG/DL (40-60) L Cholesterol/HDL Ratio 4.1 (3.3-4.4) Thyroid Stimulating Hormone (TSH) 2.316 uiU/mL (0.358-3.740) EVELINA ANDRADE Apr 28, 2017 14:17
[2017-04-28 16:00] VITALS: BP 139/68
--- NOTE | 2017-04-28 17:27 | Cardiology Report ---
APPROVED REPORT EXAM: Two-dimensional and M-mode echocardiogram with Doppler and color Doppler. INDICATION Left ventricular function M-Mode DIMENSIONS IVSd1.0 (0.7-1.1cm)Left Atrium (MM)3.6 (1.6-4.0cm) LVDd4.6 (3.5-5.6cm)Aortic Root3.1 (2.0-3.7cm) PWd1.2 (0.7-1.1cm)Aortic Cusp Exc.2.0 (1.5-2.0cm) IVSs1.3 cm LVDs3.3 (2.5-4.0cm) PWs0.9 cm Technically difficult study due to poor acoustical windows. Normal left ventricular chamber size, systolic function and wall motion. Left ventricular ejection fraction estimated to be 55-60%. No evidence of left ventricular hypertrophy. No evidence of pericardial or pleural effusion. Bi-atrial enlargement by 2D. Focal aortic valve sclerosis with adequate cusp excursion. Thickened mitral valve leaflets with normal excursion. Mild mitral annulus and aortic root calcification. Pulmonic valve is well visualized. Normal tricuspid valve structure. IVC is normal in size and collapsible with respiration. A color flow and spectral Doppler study was performed and revealed: No aortic regurgitation. No mitral regurgitation. Mitral diastolic velocities suggest reduced left ventricular relaxation c/w diastolic dysfunction grade 1. Trace tricuspid regurgitation.
[2017-04-29] MEDS: Morphine Sulfate 4mg/ml Inj IVP PRN ×2 (05:57→10:51)
[2017-04-29] MEDS: Heparin 5000 units/ml inj SUBQ SCH ×3 (06:00→21:54)
[2017-04-29] MEDS: NovoLOG Insulin Flexpen SUBQ SCH ×4 (06:02→21:08)
[2017-04-29 08:00] VITALS: BP 122/64
[2017-04-29] MEDS: Aspirin Baby 81mg ORAL SCH (09:33)
[2017-04-29 12:00] VITALS: BP 114/61
--- NOTE | 2017-04-29 14:56 | Pulmonology Progress Note ---
Assessment/Plan Problems: (1) Acute asthma exacerbation (2) History of asthma (3) Morbid obesity Assessment/Plan check sputum check cultures titrate fio2 to sat of 92% cardio consult appreciated med/surg Subjective ROS Limited/Unobtainable: No Interval Events: improivng Allergies: Coded Allergies: TREE NUT (Verified Allergy, Severe, 04/27/17) SOYBEAN (Verified Allergy, Intermediate, 04/27/17) BENAZEPRIL (Verified Allergy, Unknown, 04/27/17) Objective Last 24 Hour Vital Signs Date Time Temp Pulse Resp B/P (MAP) Pulse Ox O2 Delivery O2 Flow Rate FiO2 04/29/17 12:00 97.5 84 18 114/61 97 Room Air 04/29/17 12:00 97 04/29/17 08:00 92 04/29/17 08:00 98.4 98 18 122/64 94 Room Air 04/29/17 04:40 76 04/28/17 23:48 88 04/28/17 19:43 88 04/28/17 16:00 98.2 93 20 139/68 95 Room Air 04/28/17 16:00 88 Intake and Output 04/28/17 04/29/17 19:00 07:00 Intake Total 870 ml 240 ml Balance 870 ml 240 ml Intake Oral 870 ml 240 ml # Voids 4 1 # Bowel Movements 1 Objective General Appearance: WD/WN Lines, tubes and drains: peripheral HEENT: normocephalic Neck: non-tender, normal alignment Respiratory/Chest: chest wall non-tender, rhonchi - left, rhonchi - right Cardiovascular/Chest: normal peripheral pulses, normal rate Abdomen: normal bowel sounds, non tender Extremities: normal range of motion, non-tender Laboratory Tests 04/29/17 10:10: Troponin I 0.000 Current Medications Medications (Trade) Dose Ordered Sig/Al Route PRN Reason Start Time Stop Time Status Last Admin Dose Admin Acetaminophen (Tylenol) 650 mg Q4H PRN ORAL FEVER 04/27/17 15:45 05/27/17 15:44 04/29/17 09:32 Albuterol/ Ipratropium (Albuterol/ Ipratropium) 3 ml Q4H PRN HHN Shortness of Breath 04/27/17 15:45 05/02/17 15:44 Aspirin (ASA) 162 mg DAILY ORAL 04/28/17 09:00 05/28/17 08:59 04/29/17 09:33 Dextrose (Dextrose 50%) STAT PRN IV Hypoglycemia 04/27/17 15:45 05/27/17 15:44 Diltiazem HCl (Cardizem) 10 mg Q1H PRN IV HR > 120 04/27/17 15:45 05/27/17 15:44 Heparin Sodium (Porcine) (Heparin 5000 units/ml) 5,000 units EVERY 8 HOURS SUBQ 04/27/17 22:00 05/27/17 21:59 04/29/17 13:46 Insulin Aspart (NovoLOG) BEFORE MEALS AND HS SUBQ 04/27/17 16:30 05/27/17 16:29 04/29/17 12:10 Levofloxacin 100 ml @ 100 mls/hr Q24H IVPB 04/28/17 14:00 05/05/17 13:59 04/29/17 13:44 Morphine Sulfate (Morphine Sulfate) 2 mg Q4H PRN IVP severe Pain (Pain Scale 7-10) 04/27/17 15:45 05/04/17 15:44 04/29/17 10:51 Nitroglycerin (Ntg) 0.4 mg Every 5 Minutes PRN SL Prn Chest Pain 04/27/17 15:45 05/27/17 15:44 Ondansetron HCl (Zofran) 4 mg Q6H PRN IVP Nausea & Vomiting 04/27/17 15:45 05/27/17 15:44 Pantoprazole (Protonix) 40 mg DAILY ORAL 04/28/17 09:00 05/28/17 08:59 04/29/17 09:33 Polyethylene Glycol (Miralax) 17 gm DAILYPRN PRN ORAL Constipation 04/27/17 15:45 05/27/17 15:44 Temazepam (Restoril) 15 mg HSPRN PRN ORAL Insomnia 04/27/17 15:45 05/04/17 15:44 04/28/17 23:51 YAYA HEBERT Apr 29, 2017 14:56
[2017-04-29 16:00] VITALS: BP 129/73
--- NOTE | 2017-04-29 17:21 | Cardiology Progress Note ---
Assessment/Plan Assessment/Plan aasthma exacerbation obesity gerd hs dm htn doubt chf probnp nrml , trop norl ekg neg echo reviewed treat for asthma exacerbation in future can consider stress testing if more cp this was all d/w pt ok to dc tlee Subjective Cardiovascular: Denies: chest pain, lightheadedness, palpitations Respiratory: Reports: cough, shortness of breath Gastrointestinal/Abdominal: Denies: abdominal pain Genitourinary: Denies: burning Objective Last 24 Hour Vital Signs Date Time Temp Pulse Resp B/P (MAP) Pulse Ox O2 Delivery O2 Flow Rate FiO2 04/29/17 16:00 92 04/29/17 16:00 98.1 86 18 129/73 95 Room Air 04/29/17 12:00 97.5 84 18 114/61 97 Room Air 04/29/17 12:00 97 04/29/17 08:00 92 04/29/17 08:00 98.4 98 18 122/64 94 Room Air 04/29/17 04:40 76 04/28/17 23:48 88 04/28/17 19:43 88 General Appearance: no apparent distress, alert, obese Neck: no JVD Cardiovascular: normal rate, regular rhythm Respiratory/Chest: lungs clear Abdomen: normal bowel sounds, non tender, soft Extremities: no swelling Intake and Output 04/28/17 04/29/17 19:00 07:00 Intake Total 870 ml 240 ml Balance 870 ml 240 ml Intake Oral 870 ml 240 ml # Voids 4 1 # Bowel Movements 1 Laboratory Tests Test 04/29/17 10:10 Troponin I 0.000 ng/mL (0.000-0.056) EVELINA ANDRADE Apr 29, 2017 17:21
--- NOTE | 2017-04-29 19:17 | Cardiology Report ---
APPROVED REPORT EKG Measurement Heart [id number] Normal sinus rhythm Normal ECG
[2017-04-29] MEDS ORDERED: dilTIAZem HCl 25mg/5ml Inj IV PRN (20:45)
[2017-04-29] MEDS ORDERED: Miralax 17gm pkt ORAL PRN (21:00)
[2017-04-29] MEDS ORDERED: Nitroglycerin Subl 0.4mg tab SL PRN (21:00)
[2017-04-29] MEDS ORDERED: Morphine Sulfate 4mg/ml Inj IVP PRN (21:00)
[2017-04-30] VITALS: BP 103/66
--- NOTE | 2017-04-30 03:45 | Consultation ---
DATE OF CONSULTATION: 04/28/2017 CARDIOLOGY CONSULTATION CONSULTING PHYSICIAN: Martin Baugh M.D. REFERRING PHYSICIAN: Radha Granado M.D. REASON FOR REFERRAL: Shortness of breath and possible chest pain. HISTORY OF PRESENT ILLNESS: This is a 42-year-old female, whose information is obtained from the direct communication with the patient as well as review of [facility] chart. The patient presented to the hospital because her mother has been ill with the flu and she has been her primary radiation oncology therapist and she has been having some coughing and shortness of breath. She has had several emergency room visits. She was given a dose of Tamiflu. She received breathing treatments as well as steroids, but she continued to be symptomatic with shortness of breath and exertional dyspnea, so presented to the hospital and really insists on being admitted to the hospital at this time because of her persistent symptoms. She absolutely denies any chest pain, although initial complaint from the emergency room physician was for evaluation regarding chest pain, but she absolutely denies that at this time. She uses two pillows for comfort at home. There is no PND. She has had, however, on detailed questioning, one episode of sharp shooting pain in the left side of the axillary area and lateral to the breast that lasted all day approximately two weeks ago, but no further discomfort until today she experienced that pain again. She has no dizziness or lightheadedness on standing. No heart pounding or palpitations. PAST MEDICAL HISTORY: According to her is positive for diabetes and high blood pressure. She is on cholesterol medication and she has a history of asthma. Her [facility] records indicate she has had evaluation for chest pain at [facility]. She was sent to the emergency room, but does not look like she got to the emergency room despite her symptoms. She also has a history of diabetes, high blood pressure, high cholesterol, obesity, migraines, depression, asthma, and gastroesophageal reflux disease. ALLERGIES: She is allergic to benazepril, , bacitracin Bactroban, and nuts according to [facility] records. REVIEW OF SYSTEMS: GASTROINTESTINAL: She denies. GENITOURINARY: She denies. PULMONARY: Positive for shortness of breath and coughing and breathing treatments that she has been receiving. CONSTITUTIONAL: She denies. NEUROLOGIC: She denies. PHYSICAL EXAMINATION: GENERAL: Shows to be morbidly obese female. She is actually walking in the halls and in the room. She does not appear to be any respiratory distress and not even on oxygen at the present time. NECK: Supple. LUNGS: Do appear to be clear to auscultation and percussion. CARDIAC: Regular rate and rhythm. No heaves or thrills noted. ABDOMEN: Soft and nontender. Obese. Positive bowel sounds. EXTREMITIES: There is no clubbing, cyanosis, nor is there any edema. NEUROLOGICAL: She is alert, responsive, and communicative. LABORATORY AND DIAGNOSTIC DATA: She has a white count of 13.8, hemoglobin 10.8, and platelet count of 319,000. Sodium 144, potassium 4.3, chloride 107, bicarb 27, BUN of 12, creatinine 1.0, and glucose of 157. AST and ALT are normal. Her troponin, actually over the past two weeks, she has had one, two, three, and four sets of cardiac enzymes, all of which were completely normal at 0.00. Total cholesterol is 134 with a LDL of 86, HDL of 33, and TSH of 2.36. Her coags, INR of 1 and PTT of 22. Her urinalysis from 04/27/2017 appears to be fairly unremarkable. Chest x-ray shows limited examination. No radiographic evidence of acute cardiopulmonary disease. The patient had duplex study of the lower extremities that showed no evidence of DVT. EKG showed normal sinus rhythm and no ST or T-wave abnormalities are being noted. Echocardiogram is a technically difficult study. No significant valvular dysfunction with ejection fraction of 55% to 60% that was documented. ASSESSMENT: 1. Acute exacerbation of her asthma. 2. Diabetes mellitus. 3. Hypertension. 4. Obesity. 5. Gastroesophageal reflux disease history. PLAN: Dr. Granado, this patient was seen in cardiac consultation. She has really no pain at this time although she did have some very typical pains earlier today, but that was not the main reason she came to the hospital. She came in yesterday because of shortness of breath. She did have similar pain approximately two weeks ago. I think she is pending an evaluation at [facility] for her chest pain that she has had again though do not appear to be suggestive of an acute coronary syndrome. Her main issue is shortness of breath. Her proBNP is only 76 going against the possibility of congestive heart failure. There is no chest x-ray evidence of congestive heart failure and her EKG does not show any new changes to be suggestive of a coronary syndrome. Her echocardiogram shows LV systolic function to be normal. I doubt the episode of congestive heart failure would continue to treat her for her chronic obstructive pulmonary disease exacerbation. At some point, because of her multiple risk factors, she may benefit from stress testing and that may be done in the near future when she is feeling better from pulmonary point of view and not wheezing and not needing inhalers to be used. Martin Baugh M.D. DR: SELWYN JOB#: [id number] CC:
[2017-04-30 04:00] VITALS: BP 114/66
[2017-04-30] MEDS: Heparin 5000 units/ml inj SUBQ SCH ×2 (06:04→13:26)
[2017-04-30] MEDS: NovoLOG Insulin Flexpen SUBQ SCH ×4 (06:05→16:48)
[2017-04-30 08:00] VITALS: BP 102/60
[2017-04-30] MEDS ORDERED: Aspirin Baby 81mg ORAL SCH (09:00)
[2017-04-30] MEDS: Albuterol/Ipratropium 3ml neb HHN PRN ×2 (09:45→18:30)
--- NOTE | 2017-04-30 11:56 | Consultation ---
History of Present Illness General Date patient seen: Apr 30, 2017 Time patient seen: 11:54 Chief Complaint: Upper Respiratory Illness Present Illness HPI 42 y/o F with hx of Dm2, HTN, HLD, obesity, migraine, MDD, asthma, GERD presents to ED on 04/28 with 2 weeks onset of worsening non-productive cough, SOB with recent several ED visits, given Tamiflu (took 4 days), breathing treatments as well as steroids but continue to be symptomatic with SOB and AGARWAL. Of note, her mom recently ill with the flu and patient is her caregiver. Denies CP, dizziness/lightheadedness, fever afebrile , at RA Allergies: Coded Allergies: TREE NUT (Verified Allergy, Severe, 04/27/17) SOYBEAN (Verified Allergy, Intermediate, 04/27/17) BENAZEPRIL (Verified Allergy, Unknown, 04/27/17) Medication History Scheduled Albuterol Sulfate* (Albuterol Sulfate Mdi*), 2 PUFF INH Q6H Hydrochlorothiazide* (Hydrochlorothiazide*), 25 MG ORAL DAILY, (Reported) Losartan Potassium* (Losartan Potassium*), 100 MG ORAL DAILY, (Reported) Metformin Hcl* (Metformin Hcl*), 1,000 MG ORAL BID, (Reported) Oseltamivir Phosphate (Tamiflu), 75 MG ORAL TWICE A DAY Prednisone* (Prednisone*), 20 MG ORAL DAILY Prednisone* (Prednisone*), 40 MG ORAL DAILY Ranitidine Hcl* (Zantac*), 150 MG ORAL DAILY, (Reported) Simvastatin (Zocor), 10 MG ORAL BEDTIME, (Reported) Miscellaneous Medications Glipizide (Glipizide), 10 MG PO, (Reported) Discontinued Medications Doxycycline Monohydrate* (Doxycycline Monohydrate*), 100 MG ORAL Q12H Discontinued Reason: Therapy completed Guaifenesin/Codeine (Guaifenesin-Codeine Syrup), 5 ML ORAL Q4H PRN for For Cough Discontinued Reason: Therapy completed Hydrocodone Bit/Acetaminophen 5-325* (Alton 5-325*), 1 TAB ORAL Q6H PRN for For Pain Discontinued Reason: Therapy completed Hydrocodone Bit/Acetaminophen 5-325* (Alton 5-325*), 1 TAB ORAL Q6H PRN for For Pain Discontinued Reason: Therapy completed Prednisone (Prednisone), 20 MG PO DAILY Discontinued Reason: Medication dose changed Patient History Healthcare decision maker Resuscitation status Full Code Advanced Directive on File Patient History Narrative PMhx: as above Shx: reviewed Fhx: non contributory Review of Systems All Other Systems: negative except mentioned in HPI Physical Exam Physical Exam Narrative GENERAL: Shows to be morbidly obese female NECK: Supple. LUNGS: Do appear to be clear to auscultation and percussion. CARDIAC: Regular rate and rhythm. No heaves or thrills noted. ABDOMEN: Soft and nontender. Obese. Positive bowel sounds. EXTREMITIES: There is no clubbing, cyanosis, nor is there any edema. NEUROLOGICAL: She is alert, responsive, and communicative. Last 24 Hour Vital Signs Date Time Temp Pulse Resp B/P (MAP) Pulse Ox O2 Delivery O2 Flow Rate FiO2 04/30/17 09:55 96 22 98 21 04/30/17 09:46 91 24 94 Room Air 21 04/30/17 08:00 98.7 103 20 102/60 98 04/30/17 08:00 Room Air 04/30/17 04:00 97.6 82 20 114/66 97 Room Air 04/30/17 00:40 83 31 98 Nasal 28 04/30/17 00:00 98.2 87 20 103/66 99 Bi-pap 04/29/17 23:00 87 25 98 Nasal 28 04/29/17 16:00 92 04/29/17 16:00 98.1 86 18 129/73 95 Room Air 04/29/17 12:00 97.5 84 18 114/61 97 Room Air 04/29/17 12:00 97 Intake and Output 04/29/17 04/30/17 19:00 07:00 Intake Total 1180 ml 120 ml Balance 1180 ml 120 ml Intake Oral 1080 ml 120 ml IV Total 100 ml # Voids 4 2 Microbiology Date/Time Source Procedure Growth Status 04/29/17 16:30 Nasopharynx Influenza Types A,B Antigen (RAMY) - Final Complete Height (Feet): 5 Height (Inches): 2.00 Weight (Pounds): 270 Medications Current Medications Medications (Trade) Dose Ordered Sig/Al Route PRN Reason Start Time Stop Time Status Last Admin Dose Admin Acetaminophen (Tylenol) 650 mg Q4H PRN ORAL FEVER 04/29/17 21:00 05/27/17 20:59 Albuterol/ Ipratropium (Albuterol/ Ipratropium) 3 ml Q4H PRN HHN Shortness of Breath 04/29/17 21:00 05/02/17 20:59 04/30/17 09:45 Aspirin (ASA) 162 mg DAILY ORAL 04/30/17 09:00 05/28/17 08:59 04/30/17 09:08 Bupropion HCl (Wellbutrin XL) 300 mg DAILY ORAL 04/30/17 10:45 05/30/17 10:44 UNV Buspirone HCl (Buspar) 30 mg BID ORAL 04/30/17 10:45 05/30/17 10:44 UNV Dextrose (Dextrose 50%) STAT PRN IV Hypoglycemia 04/29/17 21:00 05/29/17 20:59 Diphenhydramine HCl (Benadryl) 50 mg HSPRN PRN ORAL Insomnia 04/30/17 11:00 05/30/17 10:59 UNV Heparin Sodium (Porcine) (Heparin 5000 units/ml) 5,000 units EVERY 8 HOURS SUBQ 04/29/17 22:00 05/27/17 21:59 04/30/17 06:04 Insulin Aspart (NovoLOG) BEFORE MEALS AND HS SUBQ 04/29/17 21:00 05/27/17 16:29 04/30/17 06:07 Levofloxacin (Levaquin) 500 mg DAILY@1400 ORAL 04/30/17 14:00 05/05/17 13:59 Morphine Sulfate (Morphine Sulfate) 2 mg Q4H PRN IVP Severe Pain (Pain Scale 7-10) 04/29/17 21:00 05/04/17 20:59 04/30/17 06:08 Nitroglycerin (Ntg) 0.4 mg Every 5 Minutes PRN SL Prn Chest Pain 04/29/17 21:00 05/27/17 20:59 Ondansetron HCl (Zofran) 4 mg Q6H PRN IVP Nausea & Vomiting 04/29/17 21:00 05/27/17 20:59 Pantoprazole (Protonix) 40 mg DAILY ORAL 04/30/17 09:00 05/28/17 08:59 04/30/17 09:07 Polyethylene Glycol (Miralax) 17 gm DAILYPRN PRN ORAL Constipation 04/29/17 21:00 05/29/17 20:59 Temazepam (Restoril) 15 mg HSPRN PRN ORAL Insomnia 04/29/17 21:00 05/06/17 20:59 04/29/17 23:02 Assessment/Plan Assessment/Plan Abx: Levaquin 04/28- Assessment: Asthma exacerbation- possibly precipitated by Flu or other viral infection; received 4 days of empiric Tamiflu which is probably enough. Will treat for bronchitis now -CXR: Limited exam with questionable interstitial prominence. No definite focal airspace consolidation. Stable cardiomegaly. -Influenza neg Afebrile Mild leukcoytosis Dm2 HTN HLD obesity migraine MDD asthma GERD Plan: -Continue Levaaquin #3/5 -f/u cx -Monitor CBC/BMP, temperatures -supportive resp tx Thank you for this consultation. Will continue to follow along with you. Discussed with Alva Arzola M.D. Apr 30, 2017 11:55
[2017-04-30 12:00] VITALS: BP 114/60
--- NOTE | 2017-04-30 12:03 | Diagnostic Imaging Report ---
Indication: Cough Technique: XRAY Chest 2v Comparison: 04/24/2017 Findings: Limited exam due to underpenetration from patient's large body habitus. Stable cardiomegaly. There may be mild interstitial prominence. No definite focal airspace consolidation. No pleural effusion. No pneumothorax. No acute osseous abnormality. Impression: Limited exam with questionable interstitial prominence. No definite focal airspace consolidation. Stable cardiomegaly.
[2017-04-30] MEDS ORDERED: BuPROPion XL 300mg tab ORAL SCH (12:30)
[2017-04-30] MEDS: BusPIRone 10mg Tab ORAL SCH ×2 (13:22→18:04)
[2017-04-30] MEDS ORDERED: Levofloxacin 500mg tab ORAL SCH ×2 (14:00)
[2017-04-30 16:00] VITALS: BP 104/52
--- NOTE | 2017-04-30 18:10 | Pulmonology Progress Note ---
Assessment/Plan Problems: (1) Acute asthma exacerbation (2) History of asthma (3) Morbid obesity Assessment/Plan improving titrate fio2 to sat of 92% cardio consult appreciated dc home with oral abx and steroids Subjective ROS Limited/Unobtainable: No Constitutional: Reports: no symptoms HEENT: Repors: no symptoms Allergies: Coded Allergies: TREE NUT (Verified Allergy, Severe, 04/27/17) SOYBEAN (Verified Allergy, Intermediate, 04/27/17) BENAZEPRIL (Verified Allergy, Unknown, 04/27/17) Objective Last 24 Hour Vital Signs Date Time Temp Pulse Resp B/P (MAP) Pulse Ox O2 Delivery O2 Flow Rate FiO2 04/30/17 16:00 98.2 92 20 104/52 96 04/30/17 12:00 Room Air 04/30/17 12:00 98.0 90 20 114/60 98 04/30/17 09:55 96 22 98 21 04/30/17 09:46 91 24 94 Room Air 21 04/30/17 08:00 98.7 103 20 102/60 98 04/30/17 08:00 Room Air 04/30/17 04:00 97.6 82 20 114/66 97 Room Air 04/30/17 00:40 83 31 98 Nasal 28 04/30/17 00:00 98.2 87 20 103/66 99 Bi-pap 04/29/17 23:00 87 25 98 Nasal 28 Intake and Output 04/29/17 04/30/17 19:00 07:00 Intake Total 1180 ml 120 ml Balance 1180 ml 120 ml Intake Oral 1080 ml 120 ml IV Total 100 ml # Voids 4 2 Objective General Appearance: WD/WN Lines, tubes and drains: peripheral HEENT: normocephalic Neck: non-tender, normal alignment Respiratory/Chest: chest wall non-tender, rhonchi - left, rhonchi - right Cardiovascular/Chest: normal peripheral pulses, normal rate Abdomen: normal bowel sounds, non tender Extremities: normal range of motion, non-tender Microbiology Date/Time Source Procedure Growth Status 04/29/17 16:30 Nasopharynx Influenza Types A,B Antigen (RAMY) - Final Complete Current Medications Medications (Trade) Dose Ordered Sig/Al Route PRN Reason Start Time Stop Time Status Last Admin Dose Admin Acetaminophen (Tylenol) 650 mg Q4H PRN ORAL FEVER 04/29/17 21:00 05/27/17 20:59 Albuterol/ Ipratropium (Albuterol/ Ipratropium) 3 ml Q4H PRN HHN Shortness of Breath 04/29/17 21:00 05/02/17 20:59 04/30/17 09:45 Aspirin (ASA) 162 mg DAILY ORAL 04/30/17 09:00 05/28/17 08:59 04/30/17 09:08 Bupropion HCl (Wellbutrin XL) 300 mg DAILY ORAL 04/30/17 12:30 05/30/17 12:29 04/30/17 13:22 Buspirone HCl (Buspar) 30 mg BID ORAL 04/30/17 12:00 05/30/17 11:59 04/30/17 18:04 Dextrose (Dextrose 50%) STAT PRN IV Hypoglycemia 04/29/17 21:00 05/29/17 20:59 Diphenhydramine HCl (Benadryl) 50 mg HSPRN PRN ORAL Insomnia 04/30/17 11:00 05/30/17 10:59 Heparin Sodium (Porcine) (Heparin 5000 units/ml) 5,000 units EVERY 8 HOURS SUBQ 04/29/17 22:00 05/27/17 21:59 04/30/17 13:26 Insulin Aspart (NovoLOG) BEFORE MEALS AND HS SUBQ 04/29/17 21:00 05/27/17 16:29 04/30/17 16:48 Levofloxacin (Levaquin) 500 mg DAILY@1400 ORAL 04/30/17 14:00 05/05/17 13:59 04/30/17 13:22 Morphine Sulfate (Morphine Sulfate) 2 mg Q4H PRN IVP Severe Pain (Pain Scale 7-10) 04/29/17 21:00 05/04/17 20:59 04/30/17 06:08 Nitroglycerin (Ntg) 0.4 mg Every 5 Minutes PRN SL Prn Chest Pain 04/29/17 21:00 05/27/17 20:59 Ondansetron HCl (Zofran) 4 mg Q6H PRN IVP Nausea & Vomiting 04/29/17 21:00 05/27/17 20:59 Pantoprazole (Protonix) 40 mg DAILY ORAL 04/30/17 09:00 05/28/17 08:59 04/30/17 09:07 Polyethylene Glycol (Miralax) 17 gm DAILYPRN PRN ORAL Constipation 04/29/17 21:00 05/29/17 20:59 Temazepam (Restoril) 15 mg HSPRN PRN ORAL Insomnia 04/29/17 21:00 05/06/17 20:59 04/29/17 23:02 YAYA HEBERT Apr 30, 2017 18:10
[2017-04-30] MEDS ORDERED: LEVAQUIN500 MG ORAL (18:29)
[2017-04-30] MEDS ORDERED: Tubing IV Secondary IV ONE (18:59)
--- NOTE | 2017-05-01 12:42 | Discharge Summary ---
Discharge Summary Hospital Course Date of Admission Apr 27, 2017 at 14:25 Date of Discharge Apr 30, 2017 at 19:00 Admitting Diagnosis asthma exacerbation HPI Jolene Marrufo is a 42 year old female who was admitted on Apr 27, 2017 at 14:25 for Asthma Exacerbation Hospital Course [id number] Discharge Discharge Disposition Patient was discharged to Home (01) Discharge Diagnoses: Rosario Vasques NP May 01, 2017 12:42
--- NOTE | 2017-05-01 12:56 | Consultation ---
DATE OF CONSULTATION: 04/30/2017 HISTORY OF PRESENT ILLNESS: This is a 42-year-old female with a history of depression, asthma, GERD, obesity, diabetes mellitus, hypertension, who has been admitted to the hospital due to shortness of breath, coughing, and fatigue. During the evaluation, the patient has been presenting with depressed mood and anxiety. Apparently she has been taking Wellbutrin and this current medication was not prescribed in the hospital. The patient stated that she has been seeing a psychiatrist outside and has been stable on her current medication regimen. Outpatient mental health was contacted. Apparently patient takes Wellbutrin 300 in the morning as well as BuSpar 30 mg p.o. b.i.d. She does not endorse any psychotic or manic symptoms. No suicidal or homicidal ideations. PAST PSYCHIATRIC HISTORY: She has been diagnosed with depression and anxiety, so she has been to a psychiatric hospital. Denies any suicide attempt in the past. PAST MEDICAL HISTORY: Includes diabetes mellitus, hypertension, hyperlipidemia, obesity, migraine, asthma, GERD. ALLERGIES: Tree nuts, and benazepril. SUBSTANCE ABUSE HISTORY: No known history of illicit drug use or alcohol. MENTAL STATUS EXAMINATION: The patient is alert and oriented times self, place, time, and situation, cooperative and pleasant. Mood is depressed. Affect is constricted. Congruent with mood. Thought process is linear. Thought content, no suicidal or homicidal ideations. No delusions. No AVH. Cognition is intact. Insight and judgment fair. ASSESSMENT: AXIS I: Major depressive disorder, anxiety disorder. AXIS II: Deferred. AXIS III: As above. AXIS IV: Low. AXIS V: 50. PLAN: 1. We will start the patient on Wellbutrin XL 300 in the morning. 2. Continue BuSpar 30 mg p.o. b.i.d. 3. We will continue to follow and readjust the medications. Beck Hatfield M.D. DR: Chris JOB#: [id number] CC:
--- NOTE | 2017-05-01 12:56 | Progress Note ---
DATE: 04/30/2017 SUBJECTIVE: The patient presents with depressed mood, anhedonia, and low energy, however, it is mild, stable on her current medication. No anxiety or agitation, calm, in no acute distress. MENTAL STATUS EXAMINATION: The patient is alert and oriented x4. Cooperative and pleasant. Mood is neutral. Affect is blunted, congruent with mood and appropriate. Thought process is linear and goal oriented. Thought content, no suicidal or homicidal ideation. No auditory or visual hallucinations. Cognition is intact. Insight and judgment is fair. ASSESSMENT: 1. Major depressive disorder. 2. Anxiety disorder, stable. PLAN: 1. We will continue the Wellbutrin 300 mg in the morning. 2. BuSpar 30 mg twice a day. 3. We will continue to follow and readjust the medications. Beck Hatfield M.D. DR: JEREMIE JOB#: [id number] CC:
--- NOTE | 2017-05-02 01:30 | Discharge Summary 2 SIG ---
DATE OF ADMISSION: 04/27/2017 DATE OF DISCHARGE: 04/30/2017 CONSULTANTS: 1. Martin Baugh M.D. 2. Alva Powell M.D. BRIEF HOSPITAL COURSE: The patient is a 42-year-old female with history of asthma and morbid obesity, presented to ED for evaluation of cough and shortness of breath. Denied fever or chills with no other aggravating and relieving factors. She was seen twice in the emergency room and was discharged with oral antibiotics and steroids. She was not getting better as outpatient. On evaluation at ED, blood work showed elevated WBC to 13.8. EKG showed normal sinus rhythm with nonspecific ST changes. She was given aspirin and breathing treatments. Due to failed outpatient treatment, she was then admitted for acute asthma exacerbation. Her troponin were normal. Total cholesterol is 134, LDL of 86, and TSH was 2.36. She had a venous duplex of lower extremity that was negative for DVT and echocardiogram is technically difficult study. However, there was no significant valvular dysfunction with the ejection fraction of 55% to 60%. Influenza screen was negative. She was seen by certified legal secretary specialist. EKG did not show any changes to be suggestive of coronary syndrome. She was recommended because of her multiple risk factors she may benefit from stress testing that may be done in the near future as outpatient. She was given Levaquin. She received Tamiflu. She was breathing better and troponins remained negative. She was eventually cleared for discharge home. FINAL DIAGNOSES: 1. Acute asthma exacerbation. 2. Morbid obesity. 3. Asthma exacerbation possibly precipitated by flu and other viral infection. 4. Acute bronchitis. 5. Hyperlipidemia. 6. Hypertension. 7. Diabetes type 2. 8. Gastroesophageal reflux disease. 9. Major depressive disorder. DISPOSITION: The patient was discharged home. DISCHARGE MEDICATIONS: Refer to medication list. DISCHARGE INSTRUCTIONS: Follow up with PMD in a week. Radha Granado M.D. I have been assigned to dictate discharge summary on this account and I was not involved in the patient's management. Rosario Vasques N.P. DR: ANGELO JOB#: [id number] CC:
--- NOTE | 2017-05-05 11:41 | Diagnostic Imaging Report ---
APPROVED REPORT CPT Code: 12621 Present Symptoms Comments: R/O DVT Risk Factors Obesity Comments Technically difficult study due to vessel depth (thigh area). BILATERAL: Imaging reveals a patent deep venous system bilaterally. There is no evidence of thrombus within the femoral, popliteal or tibial segments. The greater saphenous veins are also within normal limits. Doppler indicates normal spontaneous flow within these segments.
== END 2017-04-30 19:00 | disposition home or self-care (01) | DRG 202 ==
LOC: EDBEDREQ 14:06 → EMR 14:13 → 2E 14:25 → EDBEDREQ 15:02 → 2E 23:57 → 4W 04-29 20:12 → 4E 04-29 21:21
DX: J45.901 Unspecified asthma with (acute) exacerbation (principal); Z68.42 Body mass index [BMI] 45.0-49.9, adult; I10 Essential (primary) hypertension; E11.9 Type 2 diabetes mellitus without complications; K21.9 Gastro-esophageal reflux disease without esophagitis; E66.01 Morbid (severe) obesity due to excess calories; F32.9 Major depressive disorder, single episode, unspecified; F41.8 Other specified anxiety disorders; J20.9 Acute bronchitis, unspecified; J10.1 Influenza due to other identified influenza virus with other respiratory manifestations; Z79.51 Long term (current) use of inhaled steroids
CPT/HCPCS: 36415; 71045; 71046; 80053; 80061; 81001; 81025; 82550; 82553; 82962; 83880; 84443; 84484; 85025; 85379; 85610; 85730; 86140; 86710; 93005; 93306; 93970; 94640; 94660; 94664; 96374; 99284; 99285; J1815; J7620

== ENCOUNTER 2017-05-27 19:46 | Emergency (ER) | payer MEDICARE, MEDICAID ==
[~2017-05-27] VITALS: Ht 162.6 cm; Wt 142.0 kg
[~2017-05-27 19:46] MED LIST changes: +LEVAQUIN500 MG ORAL
[2017-05-27 20:30] VITALS: BP 148/73
[2017-05-27] MEDS ORDERED: LORazepam 1mg tab ORAL ONE (21:00)
--- NOTE | 2017-05-27 21:31 | Emergency Room Report ---
History of Present Illness General Chief Complaint: General Complaint Source: Patient Present Illness HPI 42-year-old female presents to the emergency department complaining of increase in her anxiety and no response to prescribed anti-inflammatory medication. Patient reports feeling anxious, difficulty taking a deep breath, and as though she has a lump in her throat that she is unable to clear. Patient states that she recently has had 2 full cardiac workups at emergency departments this month in addition to sleep studies and ultimately was diagnosed with anxiety. Patient denies chest pain she reports feeling as though her heart is pounding she also reports numbness and tingling in the bilateral hands and feet. She denies nausea, vomiting, fevers, chills, recent URI or cough. She denies recent travel or swelling of the lower extremities. She reports that she is prescribed 0.5 mg Ativan and she took one 2 hours prior to arrival with no relief. Also reports history of depression. Denies LOC, AMS, dizziness, Changes in Vision, Sensation, paresthesias, or a sudden severe headache. Denies SI/HI, Delusions, previous suicide attempts or psychiatric hospitalization. Allergies: Coded Allergies: TREE NUT (Verified Allergy, Severe, 04/27/17) SOYBEAN (Verified Allergy, Intermediate, 04/27/17) BENAZEPRIL (Verified Allergy, Unknown, 04/27/17) Patient History Past Medical History: see triage record, psych hx Past Surgical History: none Pertinent Family History: none Last Menstrual Period: may 19 Now: No Reviewed Nursing Documentation: PMH: Agreed, PSxH: Agreed Nursing Documentation-PMH Hx Cardiac Problems: Yes Hx Hypertension: Yes Hx Asthma: Yes Hx COPD: Yes Hx Diabetes: Yes Hx Cancer: No Hx Gastrointestinal Problems: No Hx Dialysis: No Hx Neurological Problems: No Review of Systems All Other Systems: negative except mentioned in HPI Physical Exam Vital Signs Date Time Temp Pulse Resp B/P (MAP) Pulse Ox O2 Delivery O2 Flow Rate FiO2 05/27/17 20:10 98.2 104 18 148/73 96 98.2 General Appearance: well appearing, no apparent distress, alert, GCS 15, non- toxic, obese Neck: normal inspection, supple, thyroid normal Respiratory: chest non-tender, lungs clear, normal breath sounds, no rhonchi, no respiratory distress, no wheezing Cardiovascular #1: normal peripheral pulses, no edema, normal capillary refill , tachycardia - mild tachy Gastrointestinal: non tender Genitourinary: no CVA tenderness Musculoskeletal: non-tender Neurologic: alert, oriented x3, responsive, motor strength/tone normal, normal gait Psychiatric: no suicidal/homicidal ideation, no delusions, anxious Skin: normal color, no rash, warm/dry, palpation normal, well hydrated Medical Decision Making PA Attestation Dr. wiseman is my supervising Physician whom patient management has been discussed with. Diagnostic Impression: Primary Impression: Anxiety reaction ER Course 42-year-old female presents to the emergency department complaining of increase in her anxiety and no response to prescribed anti-inflammatory medication. Patient reports feeling anxious, difficulty taking a deep breath, and as though she has a lump in her throat that she is unable to clear. Patient states that she recently has had 2 full cardiac workups at emergency departments this month in addition to sleep studies and ultimately was diagnosed with anxiety. Patient denies chest pain she reports feeling as though her heart is pounding she also reports numbness and tingling in the bilateral hands and feet. She denies nausea, vomiting, fevers, chills, recent URI or cough. She denies recent travel or swelling of the lower extremities. She reports that she is prescribed 0.5 mg Ativan and she took one 2 hours prior to arrival with no relief. Also reports history of depression. Denies LOC, AMS, dizziness, Changes in Vision, Sensation, paresthesias, or a sudden severe headache. Denies SI/HI, Delusions, previous suicide attempts or psychiatric hospitalization. Ddx considered but are not limited to anxiety, [place], PE, asthma, thyroid storm, hyperthyroid, EPS Vital signs: are WNL, pt. is afebrile H&PE are most consistent with anxiety attack, and symptoms from hyperventilation. ORDERS: none required at this time, the diagnosis is clinical ED INTERVENTIONS: - 2mg Ativan PO -Pt. reports relief of her symptoms upon re-evaluation. --Pt. given [facility] Urgent care information. d/w pt. that adjustment of her current medications would need to be done by a psychiatrist. DISCHARGE: At this time pt. is stable for d/c to home. Will provide printed patient care instructions, and any necessary prescriptions. Care plan and follow up instructions have been discussed with the patient prior to discharge. EKG Diagnostic Results Rate: tachycardiac - 102 BPM Rhythm: NSR ST Segments: no acute changes Last Vital Signs Date Time Temp Pulse Resp B/P (MAP) Pulse Ox O2 Delivery O2 Flow Rate FiO2 05/27/17 20:30 98.2 104 18 148/73 96 98.2 Disposition: HOME, SELF-CARE Condition: Stable Referrals: NON PHYSICIAN (PCP) Patient Instructions: Medical Screening Exam Additional Instructions: Take previously prescribed medications as directed. Follow up with a Psychiatrist as Soon as possible within 3 days, even if your symptoms have resolved. Also contact your PCP, let them know you visited the ED, and make a follow up appointment with PCP in 3-5 days. --Please review list of primary care clinics, if you do not already have a primary care provider Return sooner to ED if new symptoms occur, or current symptoms become worse. - Please note that this Emergency Department Report was dictated using [employer] technology software, occasionally this can lead to erroneous entry secondary to interpretation by the dictation equipment. Sultana Crowder May 27, 2017 21:31
[2017-05-27 21:52] VITALS: BP 140/70
[2017-05-27 21:53] VITALS: BP 148/73
--- NOTE | 2017-05-29 11:30 | Cardiology Report ---
APPROVED REPORT EKG Measurement Heart [id number] Sinus tachycardia with occasional premature ventricular complexes Minimal voltage criteria for LVH, may be normal variant Borderline ECG
== END 2017-05-27 21:53 | disposition home or self-care (01) ==
LOC: EMR 20:25
DX: F41.9 Anxiety disorder, unspecified (principal); I10 Essential (primary) hypertension; J45.909 Unspecified asthma, uncomplicated; E11.9 Type 2 diabetes mellitus without complications; Z91.018 Allergy to other foods; Z91.048 Other nonmedicinal substance allergy status; Z88.8 Allergy status to other drugs, medicaments and biological substances
CPT/HCPCS: 93005; 99283

== ENCOUNTER 2017-06-07 10:05 | Emergency (ER) | payer MEDICARE, MEDICAID ==
[~2017-06-07] VITALS: Ht 162.6 cm; Wt 137.0 kg
[2017-06-07] MEDS ORDERED: LORazepam Inj 2mg/ml 1ml IM ONE (10:45)
[2017-06-07 11:01] VITALS: BP 113/69
--- NOTE | 2017-06-07 11:50 | Emergency Room Report ---
History of Present Illness General Chief Complaint: General Complaint Source: Patient Present Illness HPI Patient presents with anxiety and dyspnea. She has had AGRAWAL and hand tingling which in intermittent. She was recently told to stop taking Klonopin (just few days of use). Ativan was being used before this for several weeks and she states it stopped working. She denies chest pain. There is no calf pain. She does take Wellbutrin. She is not suicidal. She denies fevers. Her doctors have not been able to control her anxiety. She also has sleep apnea and some COPD with some wheezing. She states she has an inhaler, but that it makes the anxiety worse. She has not heard herself wheezing recently. She is asking for something to treat the anxiety at this time. She is scheduled to have an ABG done by her MDs next week for evaluation of dyspnea. Buspar was stopped. It seems benzos stopped due to respiratory problems. Obesity Sleep apnea - CPAP use at night Diabetes, on meds, states sugars controlled Schizoaffective/major depression/anxiety - no voices. Not many meds used to treat anxiety and this. Was started on Wellbutrin and BuSpar during last hospitalization. Not . No dysuria. No change in bowels. No headache. Allegedly will need corneal transplant. She was discharged 04/30/17 for asthma exacerbation with these dx: FINAL DIAGNOSES: 1. Acute asthma exacerbation. 2. Morbid obesity. 3. Asthma exacerbation possibly precipitated by flu and other viral infection. 4. Acute bronchitis. 5. Hyperlipidemia. 6. Hypertension. 7. Diabetes type 2. 8. Gastroesophageal reflux disease. 9. Major depressive disorder. Allergies: Coded Allergies: TREE NUT (Verified Allergy, Severe, 04/27/17) SOYBEAN (Verified Allergy, Intermediate, 04/27/17) BENAZEPRIL (Verified Allergy, Unknown, 04/27/17) Patient History Past Medical History: see triage record, old chart reviewed Social History: Denies: smoking, alcohol use, drug use Social History Narrative with Mom Last Menstrual Period: Apr Reviewed Nursing Documentation: PMH: Agreed, PSxH: Agreed Nursing Documentation-PMH Hx Cardiac Problems: Yes Hx Hypertension: Yes Hx Asthma: Yes Hx COPD: Yes Hx Diabetes: Yes Hx Cancer: No Hx Gastrointestinal Problems: No Hx Dialysis: No History Of Psychiatric Problem: Yes - ANXIETY Hx Neurological Problems: No Review of Systems All Other Systems: negative except mentioned in HPI Physical Exam Vital Signs Date Time Temp Pulse Resp B/P (MAP) Pulse Ox O2 Delivery O2 Flow Rate FiO2 06/07/17 10:10 98.2 99 16 154/89 95 Room Air 98.2 Sp02 EP Interpretation: reviewed, normal General Appearance: well appearing, no apparent distress, GCS 15, obese Head: normocephalic Eyes: bilateral eye normal inspection, bilateral eye PERRL ENT: moist mucus membranes Neck: supple Respiratory: lungs clear, normal breath sounds Cardiovascular #1: regular rate, rhythm Cardiovascular #2: 2+ radial (R) Gastrointestinal: normal inspection, normal bowel sounds, non tender, no mass, non-distended, overweight Musculoskeletal: back normal, gait/station normal, normal range of motion, no calf tenderness Neurologic: alert, oriented x3, grossly normal Psychiatric: anxious Skin: normal inspection, warm/dry Medical Decision Making Diagnostic Impression: Primary Impression: Dyspnea Qualified Codes: R06.09 - Other forms of dyspnea Additional Impression: Anxiety ER Course Patient presents with dyspnea and anxiety. Ddx: asthma, anxiety, PE, URI. No fever and repeat O2 sat 97%. Given rest of VS and history, PE unlikely. Patient asking for treatment of anxiety. Ativan given. Based on exam, no imaging or labs indicated. Improved with treatment. Long discussion with patient and mother regarding potential further treatment by PMDs. (In process of evaluation at this time.) Patient stable for outpatient observation and treatment. Last Vital Signs Date Time Temp Pulse Resp B/P (MAP) Pulse Ox O2 Delivery O2 Flow Rate FiO2 06/07/17 12:08 98.5 94 16 113/69 98 Room Air 98.5 Status: improved Disposition: HOME, SELF-CARE Condition: Improved Scripts Hydroxyzine Pamoate (VISTARIL) 25 Mg Capsule 25 MG PO Q8HR, #10 CAP may repeat X 1 if still anxious Prov: Joel Montes M.D. 06/07/17 Referrals: NON PHYSICIAN (PCP) Joel Montes M.D. Jun 07, 2017 11:50
[2017-06-07] MEDS ORDERED: VISTARIL25 M1 PO (11:54)
[2017-06-07 12:08] VITALS: BP 113/69
== END 2017-06-07 12:10 | disposition home or self-care (01) ==
LOC: EMR 10:20
DX: F41.9 Anxiety disorder, unspecified (principal); R06.09 Other forms of dyspnea; J44.9 Chronic obstructive pulmonary disease, unspecified; I10 Essential (primary) hypertension; E11.9 Type 2 diabetes mellitus without complications; G47.30 Sleep apnea, unspecified; F25.9 Schizoaffective disorder, unspecified; F32.9 Major depressive disorder, single episode, unspecified; E78.5 Hyperlipidemia, unspecified; K21.9 Gastro-esophageal reflux disease without esophagitis; Z91.018 Allergy to other foods; Z88.8 Allergy status to other drugs, medicaments and biological substances
CPT/HCPCS: 96372; 99284

== ENCOUNTER 2017-06-10 06:49 | Emergency (ER) | payer MEDICARE, MEDICAID ==
[~2017-06-10] VITALS: Ht 162.6 cm; Wt 137.0 kg
[~2017-06-10 06:49] MED LIST changes: +VISTARIL25 M1 PO
[2017-06-10 07:30] VITALS: BP 135/76
[2017-06-10 08:23] LABS: APPEARANCE,URINE CLEAR; BILIRUBIN, URINE NEGATIVE (NEGATIVE); COLOR,URINE PALE YELLOW; GLUCOSE, URINE (UA) 4+ (NEGATIVE); KETONES,URINE NEGATIVE (NEGATIVE); LEUKOCYTE ESTERASE ,URINE NEGATIVE (NEGATIVE); NITRITE,URINE NEGATIVE (NEGATIVE); PH,URINE 6.5 (4.5-8.0); PROTEIN,URINE NEGATIVE (NEGATIVE); UROBILINOGEN,URINE NORMAL MG/DL (0.0-1.0)
--- NOTE | 2017-06-10 08:43 | Emergency Room Report ---
History of Present Illness General Chief Complaint: General Complaint Source: Patient Present Illness HPI The patient states she has had generalized anxiety that started at the end of March. She has been seen at several other hospitals including [facility]. She has also been seen at [facility] for psychiatry. She has been seen by her primary care physician and diagnosed with severe anxiety. She is on multiple medications to include bupropion, gabapentin, hydroxyzine, Abilify. She states that nothing is working. She is being seen by a [employer] welter because she has constant shortness of breath. The [employer] welter requested that she get an ABG. She states she came here to [facility] emergency department on Thursday to get this but was unable to go through with it secondary to anxiety. She states that Dr. Montes gave her IV Ativan and that did help her until the evening. However, her anxiety returned and she continues to be constantly anxious. She also feels short of breath. She states she is so anxious she cannot even get to [facility] to get her blood work. When I inquired whether she has had a CT scan of her chest, she states this had been recommended on her previous visits that she feels too much anxiety to undergo this test. She states that she has had ongoing anxiety in the past but over the past 3 months this is been debilitating and very severe. She denies alcohol , drug or tobacco use. She denies caffeine use. She states she has had thorough testing multiple times and there has been no medical condition identified other than anxiety. She did undergo a cardiology stress test. She states that she's undergone multiple lab tests. She states she normally goes to [facility] by her anxiety prevents her from driving this far. That is why she is here at [facility]. She is requesting an ABG that was recommended by a [employer] welter. Allergies: Coded Allergies: TREE NUT (Verified Allergy, Severe, 04/27/17) SOYBEAN (Verified Allergy, Intermediate, 04/27/17) BENAZEPRIL (Verified Allergy, Unknown, 04/27/17) Patient History Past Medical History: see triage record, DM, asthma, psych hx - anxiety, depression Past Surgical History: none Social History: Denies: smoking, alcohol use, drug use Last Menstrual Period: May 17 Now: No Reviewed Nursing Documentation: PMH: Agreed, PSxH: Agreed Nursing Documentation-PMH Hx Cardiac Problems: Yes Hx Hypertension: Yes Hx Asthma: Yes Hx COPD: Yes Hx Diabetes: Yes Hx Cancer: No Hx Gastrointestinal Problems: No Hx Dialysis: No Hx Neurological Problems: No Review of Systems All Other Systems: negative except mentioned in HPI Physical Exam Vital Signs Date Time Temp Pulse Resp B/P (MAP) Pulse Ox O2 Delivery O2 Flow Rate FiO2 06/10/17 06:54 98.2 110 18 135/76 95 Room Air 98.2 Sp02 EP Interpretation: reviewed, normal General Appearance: no apparent distress, alert, GCS 15, non-toxic Head: normocephalic, atraumatic Eyes: bilateral eye normal inspection, bilateral eye PERRL ENT: hearing grossly normal, normal pharynx, no angioedema, normal voice Neck: full range of motion, supple/symm/no masses Respiratory: chest non-tender, lungs clear, normal breath sounds, speaking full sentences Cardiovascular #1: no edema, no murmur, tachycardia Gastrointestinal: normal bowel sounds, non tender, soft, non-distended, no guarding, no rebound, overweight Rectal: deferred Musculoskeletal: back normal, gait/station normal, normal range of motion, non- tender Neurologic: alert, oriented x3, responsive, motor strength/tone normal, sensory intact, speech normal Psychiatric: judgement/insight normal, memory normal, no suicidal/homicidal ideation, anxious Skin: normal color, no rash, warm/dry, well hydrated Medical Decision Making Diagnostic Impression: Primary Impression: Anxiety ER Course The patient presents with severe generalized anxiety. She had requested Ativan. However, I discussed with her that Ativan is only a temporary fix and habit forming. Educated her that she needs to be on other [id number] antianxiety medications that are prescribed by a psychiatrist. I do not believe that IV benzodiazepines in the emergency department is appropriate for generalized ongoing anxiety. I also am concerned that this patient has not undergone a CT of the chest to rule out PE. Although, I have low suspicion, the patient does have tachycardia and shortness of breath sensation. I have no record of any CT and the patient states she did not get the CT at [facility] secondary to anxiety. However, I did offer the patient IV Ativan to obtain a CT. However, she repeatedly declined. I did educate the patient that I could not rule out PE. The patient indicated understanding. The patient is being followed closely by a [employer] welter. The patient is also followed by a psychiatrist and her primary care physician. Patient is on multiple psychiatric medications and I am uncomfortable adding any other occasions. On my evaluation, although the patient does report anxiety she is well appearing and calm. I do not feel the IV benzodiazepines offer this patient any prison or benefit of any type at this time. The patient's laboratory workup to include basic labs and ABG are unremarkable. The patient left AGAINST MEDICAL ADVICE. Laboratory Tests Test 06/10/17 08:05 06/10/17 08:10 06/10/17 08:35 Urine Color Pale yellow Urine Appearance Clear Urine pH 6.5 (4.5-8.0) Urine Specific [place] 1.005 (1.005-1.035) Urine Protein Negative (NEGATIVE) Urine Glucose (UA) 4+ (NEGATIVE) H Urine Ketones Negative (NEGATIVE) Urine Occult Blood Negative (NEGATIVE) Urine Nitrite Negative (NEGATIVE) Urine Bilirubin Negative (NEGATIVE) Urine Urobilinogen Normal MG/DL (0.0-1.0) Urine Leukocyte Esterase Negative (NEGATIVE) Urine HCG, Qualitative Negative (NEGATIVE) Urine Opiates Screen Negative (NEGATIVE) Urine Barbiturates Screen Negative (NEGATIVE) Phencyclidine (PCP) Screen Negative (NEGATIVE) Urine Amphetamines Screen Negative (NEGATIVE) Urine Benzodiazepines Screen Negative (NEGATIVE) Urine Cocaine Screen Negative (NEGATIVE) Urine Marijuana (THC) Screen Negative (NEGATIVE) Arterial Blood pH 7.470 (7.350-7.450) Arterial Blood Partial Pressure CO2 31.1 mmHg (35.0-45.0) L Arterial Blood Partial Pressure O2 177.4 mmHg (75.0-100.0) H Arterial Blood HCO3 22.2 mmol/L (22.0-26.0) Arterial Blood Oxygen Saturation 98.7 % (92.0-98.0) H Arterial Blood Base Excess -0.6 Alcides Test Positive White Blood Count 11.5 K/UL (4.8-10.8) H Red Blood Count 4.80 M/UL (4.20-5.40) Hemoglobin 12.8 G/DL (12.0-16.0) Hematocrit 40.9 % (37.0-47.0) Mean Corpuscular Volume 85 FL (80-99) Mean Corpuscular Hemoglobin 26.8 PG (27.0-31.0) L Mean Corpuscular Hemoglobin Concent 31.4 G/DL (32.0-36.0) L Red Cell Distribution Width 14.9 % (11.6-14.8) H Platelet Count 352 K/UL (150-450) Mean Platelet Volume 6.3 FL (6.5-10.1) L Neutrophils (%) (Auto) 71.7 % (45.0-75.0) Lymphocytes (%) (Auto) 16.8 % (20.0-45.0) L Monocytes (%) (Auto) 5.2 % (1.0-10.0) Eosinophils (%) (Auto) 5.7 % (0.0-3.0) H Basophils (%) (Auto) 0.7 % (0.0-2.0) Sodium Level 136 MMOL/L (136-145) Potassium Level 4.0 MMOL/L (3.5-5.1) Chloride Level 102 MMOL/L (98-107) Carbon Dioxide Level 26 MMOL/L (21-32) Anion Gap 8 mmol/L (5-15) Blood Urea Nitrogen 11 mg/dL (7-18) Creatinine 1.0 MG/DL (0.55-1.30) Estimate Glomerular Filtration Rate > 60 mL/min (>60) Glucose Level 171 MG/DL (74-106) H Calcium Level 9.1 MG/DL (8.5-10.1) Total Bilirubin 0.3 MG/DL (0.2-1.0) Aspartate Amino Transferase (AST) 10 U/L (15-37) L Alanine Aminotransferase (ALT) 24 U/L (12-78) Alkaline Phosphatase 61 U/L (46-116) Total Creatine Kinase 196 U/L (26-308) Creatine Kinase MB 1.4 NG/ML (0.0-3.6) Creatine Kinase MB Relative Index 0.7 Troponin I 0.000 ng/mL (0.000-0.056) Total Protein 8.0 G/DL (6.4-8.2) Albumin 3.8 G/DL (3.4-5.0) Globulin 4.2 g/dL Albumin/Globulin Ratio 0.9 (1.0-2.7) L EKG Diagnostic Results Rate: tachycardiac Rhythm: other - S.tachycardia ST Segments: no acute changes Rhythm Strip Diag. Results EP Interpretation: yes Rate: 100's Rhythm: no PVC's, no ectopy, other - s.tachycardia Last Vital Signs Date Time Temp Pulse Resp B/P (MAP) Pulse Ox O2 Delivery O2 Flow Rate FiO2 06/10/17 07:30 98.2 18 135/76 95 Room Air 98.2 06/10/17 06:54 110 Status: improved Disposition: AGAINST MEDICAL ADVICE Condition: Stable Referrals: NON PHYSICIAN (PCP) JAG MARADIAGA D.O. Jun 10, 2017 08:43
[2017-06-10 08:56] LABS: BASOPHILS % (AUTO) 0.7 % (0.0-2.0); EOSINOPHILS % (AUTO) 5.7 % (0.0-3.0); HEMATOCRIT 40.9 % (37.0-47.0); HEMOGLOBIN 12.8 G/DL (12.0-16.0); LYMPHOCYTES % (AUTO) 16.8 % (20.0-45.0); MEAN CORPUSCULAR VOLUME 85 FL (80-99); MONOCYTES % (AUTO) 5.2 % (1.0-10.0); NEUTROPHILS % (AUTO) 71.7 % (45.0-75.0); PLATELET COUNT 352 K/UL (150-450); RED CELL DISTRIBUTION WIDTH 14.9 % (11.6-14.8); WHITE BLOOD COUNT 11.5 K/UL (4.8-10.8)
[2017-06-10 09:06] LABS: ANION GAP 8 mmol/L (5-15); BLOOD UREA NITROGEN 11 mg/dL (7-18); CALCIUM 9.1 MG/DL (8.5-10.1); CARBON DIOXIDE 26 MMOL/L (21-32); CHLORIDE 102 MMOL/L (98-107); SODIUM 136 MMOL/L (136-145)
[2017-06-10] MEDS ORDERED: ATORVASTATIN CA40 MG ORAL (09:13)
[2017-06-10] MEDS ORDERED: ASPIR 8181 MG ORAL (09:13)
[2017-06-10] MEDS ORDERED: LOSARTAN POTASS50 MG ORAL (09:13)
[2017-06-10] MEDS ORDERED: BUPROPION XL300 M1 PO (09:13)
[2017-06-10] MEDS ORDERED: GABAPENTIN300 MG ORAL (09:13)
[2017-06-10] MEDS ORDERED: ARIPIPRAZOLE5 MG PO (09:13)
[2017-06-10] MEDS ORDERED: OMEPRAZOLE20 M2 ORAL (09:13)
[2017-06-10 09:19] VITALS: BP 114/71
[2017-06-10 09:20] LABS: ALANINE AMINOTRANSFERASE 24 U/L (12-78); ALBUMIN 3.8 G/DL (3.4-5.0); ALBUMIN/GLOBULIN RATIO 0.9 (1.0-2.7); ALKALINE PHOSPHATASE 61 U/L (46-116); ASPARTATE AMINO TRANSFERASE 10 U/L (15-37); BILIRUBIN,TOTAL 0.3 MG/DL (0.2-1.0); CKMB 1.4 NG/ML (0.0-3.6); CREATINE KINASE 196 U/L (26-308)
[2017-06-10 09:54] VITALS: BP 114/71
--- NOTE | 2017-06-12 17:37 | Cardiology Report ---
APPROVED REPORT EKG Measurement Heart [id number] CA [id number] Sinus tachycardia Normal ECG
== END 2017-06-10 09:57 | disposition left against medical advice (07) ==
LOC: EMR 07:30
DX: F41.9 Anxiety disorder, unspecified (principal); E11.9 Type 2 diabetes mellitus without complications; I10 Essential (primary) hypertension; J44.9 Chronic obstructive pulmonary disease, unspecified; F32.9 Major depressive disorder, single episode, unspecified; Z91.018 Allergy to other foods; Z88.8 Allergy status to other drugs, medicaments and biological substances
CPT/HCPCS: 36415; 36600; 80053; 80307; 81003; 81025; 82550; 82553; 82803; 82962; 84484; 85025; 93005; 99283

== ENCOUNTER 2017-06-25 15:01 | Emergency (ER) | payer MEDICARE, MEDICAID ==
[~2017-06-25] VITALS: Ht 162.6 cm; Wt 142.9 kg
[~2017-06-25 15:01] MED LIST changes: +ARIPIPRAZOLE5 MG PO; +ASPIR 8181 MG ORAL; +ATORVASTATIN CA40 MG ORAL; +BUPROPION XL300 M1 PO; +OMEPRAZOLE20 M2 ORAL
[2017-06-25 15:30] VITALS: BP 118/70
[2017-06-25] MEDS ORDERED: LORazepam Inj 2mg/ml 1ml IM ONE (15:45)
[2017-06-25 16:15] VITALS: BP_SYST 118; BP_SYST 129; BP_DIAS 70
--- NOTE | 2017-06-25 17:27 | Emergency Room Report ---
History of Present Illness General Chief Complaint: General Complaint Source: Patient Present Illness HPI 42-year-old female presents ED for evaluation. Patient states she's been feeling short of breath with trouble breathing for the last day. History of anxiety. History of asthma. Patient has been here multiple times for similar presentation. Denies chest pain. Denies coughing. States she's been prescribed new anxiety medications which she believes are helping. Denies drug use. Denies suicidal or homicidal ideation. No other aggravating relieving factors. Denies any other associated symptoms Allergies: Coded Allergies: TREE NUT (Verified Allergy, Severe, 04/27/17) SOYBEAN (Verified Allergy, Intermediate, 04/27/17) BENAZEPRIL (Verified Allergy, Unknown, 04/27/17) Patient History Past Medical History: DM, HTN, asthma, COPD Pertinent Family History: none Social History: Denies: smoking, alcohol use, drug use Last Menstrual Period: 06/18/17 Now: No : 0 Para: 0 Immunizations: UTD Reviewed Nursing Documentation: PMH: Agreed; PSxH: Agreed Nursing Documentation-PMH Past Medical History: No History, Except For Hx Cardiac Problems: Yes Hx Hypertension: Yes Hx Asthma: Yes Hx COPD: Yes Hx Diabetes: Yes Hx Cancer: No Hx Gastrointestinal Problems: No Hx Dialysis: No Hx Neurological Problems: No Review of Systems All Other Systems: negative except mentioned in HPI Physical Exam Vital Signs Date Time Temp Pulse Resp B/P (MAP) Pulse Ox O2 Delivery O2 Flow Rate FiO2 06/25/17 15:17 98.3 98 16 118/70 94 Room Air 98.2 Sp02 EP Interpretation: reviewed, normal General Appearance: no apparent distress, alert, GCS 15, non-toxic, obese Head: normocephalic, atraumatic Eyes: bilateral eye normal inspection, bilateral eye PERRL ENT: hearing grossly normal, normal pharynx, no angioedema, normal voice Neck: full range of motion, supple/symm/no masses Respiratory: chest non-tender, lungs clear, normal breath sounds, speaking full sentences Cardiovascular #1: regular rate, rhythm, no edema Cardiovascular #2: 2+ carotid (R), 2+ carotid (L), 2+ radial (R), 2+ radial (L) , 2+ dorsalis pedis (R), 2+ dorsalis pedis (L) Gastrointestinal: normal bowel sounds, non tender, soft, non-distended, no guarding, no rebound Rectal: deferred Genitourinary: normal inspection, no CVA tenderness Musculoskeletal: back normal, gait/station normal, normal range of motion, non- tender Neurologic: alert, oriented x3, responsive, motor strength/tone normal, sensory intact, speech normal Psychiatric: judgement/insight normal, memory normal, no suicidal/homicidal ideation, anxious Reflexes: 3+ bicep (R), 3+ bicep (L), 3+ tricep (R), 3+ tricep (L), 3+ knee (R) , 3+ knee (L) Skin: normal color, no rash, warm/dry, well hydrated Lymphatic: no adenopathy Medical Decision Making Diagnostic Impression: Primary Impression: Anxiety ER Course Hospital Course 42-year-old female presents ED complaining of difficulty breathing, feeling very anxious Differential diagnoses include: DE/unstable angina, dehydration, anxiety Clinical course Patient placed on stretcher. on reel fed printer. After initial history, physical exam reveals an obese female in no acute distress. Lungs clear. I reviewed vitals which were normal Reviewed EMR. Patient has been here multiple times for similar presentation. On multiple occasions patient has received extensive workup including ABG and lab work which have been negative I discussed these findings with the patient. I do not believe patient requires additional workups at this time as previous ones have been negative. Patient agrees. Given Ativan in ED Upon reassessment patient is observed feeling better. Interacting appropriately with family. Patient states she feels better wishes to go home. I. I feel this is a highly complex case requiring extensive working including EKG/Rhythm strip, Xray/CT/US, Blood/urine lab work, repeat exams while in ED, and administration of strong opiates/narcotics for pain control, admission to hospital or close patient follow up. Diagnosis - anxiety Stable and discharged to home. Followup with PMD. Return to ED if symptoms recur or worse Last Vital Signs Date Time Temp Pulse Resp B/P (MAP) Pulse Ox O2 Delivery O2 Flow Rate FiO2 06/25/17 16:15 98.2 16 129/70 94 Room Air 98.2 06/25/17 15:17 98 Status: improved Disposition: HOME, SELF-CARE Condition: Stable Referrals: NON PHYSICIAN (PCP) Patient Instructions: Panic Attacks, [id number] [place],Herbert MD Jun 25, 2017 17:27
== END 2017-06-25 16:51 | disposition home or self-care (01) ==
LOC: EMR 15:45
DX: F41.9 Anxiety disorder, unspecified (principal); I10 Essential (primary) hypertension; J45.909 Unspecified asthma, uncomplicated; E11.9 Type 2 diabetes mellitus without complications
CPT/HCPCS: 96372; 99283

== ENCOUNTER 2017-09-28 19:09 | Emergency (ER) | payer MEDICARE, MEDICAID ==
[~2017-09-28] VITALS: Ht 162.6 cm; Wt 143.8 kg
[2017-09-28 20:01] VITALS: BP 104/49
[2017-09-28] MEDS ORDERED: Ketorolac 30mg Inj IM ONE (20:15)
[2017-09-28] MEDS ORDERED: Norco 5mg/325mg tab ORAL ONE (20:15)
[2017-09-28 20:53] LABS: APPEARANCE,URINE CLEAR; BILIRUBIN, URINE NEGATIVE (NEGATIVE); COLOR,URINE PALE YELLOW; GLUCOSE, URINE (UA) 4+ (NEGATIVE); KETONES,URINE NEGATIVE (NEGATIVE); LEUKOCYTE ESTERASE ,URINE NEGATIVE (NEGATIVE); NITRITE,URINE NEGATIVE (NEGATIVE); PH,URINE 5 (4.5-8.0); PROTEIN,URINE NEGATIVE (NEGATIVE); UROBILINOGEN,URINE NORMAL MG/DL (0.0-1.0)
--- NOTE | 2017-09-28 20:55 | Emergency Room Report ---
History of Present Illness General Chief Complaint: Pain Source: Patient Present Illness HPI 42-year-old female patient presents ER complaining of right buttock pain 1 day. Reports pain in her but moved to her right hip. Reports pain with ambulation and movement. Denies history of injury or trauma. Denies bowel or bladder incontinence. Denies history of surgery or other injuries to the area. Denies chest pain, shortness breath, abdominal pain, other acute symptoms. Denies dysuria, hematuria, vaginal discharge. Reports not . No hx of gout. Allergies: Coded Allergies: TREE NUT (Verified Allergy, Severe, 09/28/17) SOYBEAN (Verified Allergy, Intermediate, 09/28/17) BENAZEPRIL (Verified Allergy, Unknown, 09/28/17) Patient History Past Medical History: see triage record Last Menstrual Period: 09/17/2017 Now: No Reviewed Nursing Documentation: PMH: Agreed; PSxH: Agreed Nursing Documentation-PMH Hx Cardiac Problems: No Hx Hypertension: Yes Hx Asthma: Yes Hx COPD: No Hx Diabetes: Yes Hx Cancer: No Hx Gastrointestinal Problems: No Hx Dialysis: No Hx Neurological Problems: No Review of Systems All Other Systems: negative except mentioned in HPI Physical Exam Vital Signs Date Time Temp Pulse Resp B/P (MAP) Pulse Ox O2 Delivery O2 Flow Rate FiO2 09/28/17 19:25 98.9 92 16 104/49 95 Room Air 99.0 Sp02 EP Interpretation: reviewed, normal General Appearance: well appearing, no apparent distress, alert, GCS 15, non- toxic Head: normocephalic, atraumatic Eyes: bilateral eye normal inspection, bilateral eye PERRL ENT: hearing grossly normal, normal pharynx, no angioedema, normal voice, uvula midline, moist mucus membranes Neck: full range of motion Respiratory: lungs clear, normal breath sounds, no rhonchi, no respiratory distress, no accessory muscle use, no wheezing, speaking full sentences Cardiovascular #1: regular rate, rhythm, no edema Gastrointestinal: non tender, soft, no mass, non-distended, no guarding, no rebound Genitourinary: no CVA tenderness Musculoskeletal: back normal, digits/nails normal, gait/station normal, normal range of motion, non-tender, other - no leg length discrepancy, no erythema, no edema, no tophi, no crepitus Neurologic: alert, oriented x3, responsive, motor strength/tone normal, sensory intact Psychiatric: mood/affect normal Skin: no rash Medical Decision Making PA Attestation Dr. Kaamra is my supervising Physician whom patient management has been discussed with. Diagnostic Impression: Primary Impression: Hip pain, right ER Course Pt. presents to the ED c/o hip and butt pain. Ddx considered but are not limited to fracture, sprain, strain, contusion, dislocation, UTI. no bowel or bladder incontinence, no radiation of pain down legs, low suspicion for cauda equina. No erythema, no warmth to touch, no fever, nontoxic appearing, low suspicion for septic joint. No abdominal tenderness to palpation, does not require CT of abdomen at this time. Vital signs: are WNL, pt. is afebrile Ordered X-ray and pain medication. ER COURSE Provided with pain medication. patient declined CT due to thoughts of anxiousness when she gets and the CT machine. Will order x-ray to rule out acute disease. low suspicion for fracture, no leg length discrepancy, no history of trauma. No signs of cellulitis or infection. Pain with movement. no leg length discrepancy, low suspicion for dislocation. X-ray shows no acute fracture, degenerative changes noted per the preliminary reading. Informed patient of results. Likely pain secondary to osteoarthritis and degenerative changes. Needs outpatient follow-up for further treatment and referral. Take Tylenol for pain and inflammation. UA negative, low suspicion for infection, does not require antibiotics at this time. Patient instructed on RICE method: rest, ice, compression, elevation. Patient instructed on rest, ice and heat. Patient instructed to be WBAT advised patient on diet, exercise, weight loss. Needs to follow-up with PCP for further treatment plan. Followup with primary care provider. Discuss referral to ortho/pain management/ PT as needed. Discuss further imaging with MRI/CT as needed. observed ambulating in ER independently without difficulty, no limp noted, the patient okayed for discharge to home. DISCHARGE: -Rx provided for Tylenol for pain symptoms. -Rx provided for Lidocaine patch At this time pt. is stable for d/c to home. Patient is resting comfortably, in no acute distress, nontoxic appearing, talking without difficulty. Will provide printed patient care instructions, and any necessary prescriptions. Patient instructed to follow with primary care provider in 3 - 5 days and to request further follow-up as needed. Care plan and follow up instructions have been discussed with the patient prior to discharge. Take medications as directed. Patient questions asked and answered. Patient reports understanding and agreement to treatment plan. ER precautions given, patient instructed to return to ER immediately for any new or worsening of symptoms. - Please note that this Emergency Department Report was dictated using [employer] technology software, occasionally this can lead to erroneous entry secondary to interpretation by the dictation equipment. Labs Test 09/28/17 20:30 Urine Color Pale yellow Urine Appearance Clear Urine pH 5 (4.5-8.0) Urine Specific [place] 1.010 (1.005-1.035) Urine Protein Negative (NEGATIVE) Urine Glucose (UA) 4+ (NEGATIVE) Urine Ketones Negative (NEGATIVE) Urine Occult Blood Negative (NEGATIVE) Urine Nitrite Negative (NEGATIVE) Urine Bilirubin Negative (NEGATIVE) Urine Urobilinogen Normal MG/DL (0.0-1.0) Urine Leukocyte Esterase Negative (NEGATIVE) Urine HCG, Qualitative Negative (NEGATIVE) Other X-Ray Diagnostic Results Other X-Ray Diagnostic Results #1: X-Ray ordered: pelvis # of Views/Limited Vs Complete: 2 View Indication: Pain EP Interpretation: Yes PA Xray: Interpretation reviewed, by supervising MD, and agrees with findings. Interpretation: no dislocation, no soft tissue swelling, no fractures, other - degenerative changes noted Impression: No acute disease PA Scribe Erica Griffith PA-C Other X-Ray Diagnostic Results #2: X-Ray ordered: right hip # of Views/Limited Vs Complete: 1 View Indication: Pain EP Interpretation: Yes PA Xray: Interpretation reviewed, by supervising MD, and agrees with findings. Interpretation: no dislocation, no soft tissue swelling, no fractures Impression: No acute disease PA Scribe Erica Griffith PA-C Other X-Ray Diagnostic Results #3: X-Ray ordered: left hip # of Views/Limited Vs Complete: 1 View Indication: Pain EP Interpretation: Yes PA Xray: Interpretation reviewed, by supervising MD, and agrees with findings. Interpretation: no dislocation, no soft tissue swelling, no fractures Impression: No acute disease PA Scribe Text Carmine Griffith PA-C Last Vital Signs Date Time Temp Pulse Resp B/P (MAP) Pulse Ox O2 Delivery O2 Flow Rate FiO2 09/28/17 20:08 99.0 09/28/17 20:01 92 16 104/49 95 Room Air Disposition: HOME, SELF-CARE Condition: Stable Scripts Lidocaine (Lidocaine) 1 Each Adh..patch 700 MG TP DAILY for 7 Days, #7 PATCH Prov: Miki Griffith 09/28/17 Acetaminophen* (TYLENOL EXTRA STRENGTH*) 500 Mg Tablet 500 MG ORAL Q8H PRN for Prn Headache/Temp > 101, #30 TAB 0 Refills Prov: Miki Griffith 09/28/17 Patient Instructions: Hip Pain, Osteoarthritis Additional Instructions: Patient instructed to follow up with primary care provider and discuss further referral to orthopedics. Patient instructed on RICE method: rest, ice, compression, elevation. Patient instructed to WBAT. Take medications as directed. Patient questions asked and answered. ER precautions given, patient instructed to return to ER immediately for any new or worsening of symptoms. Miki Griffith Sep 28, 2017 20:55
[2017-09-28] MEDS ORDERED: LIDOCAINE700 M1 TP (21:24)
[2017-09-28] MEDS ORDERED: TYLENOL EXTRA500 MG ORAL (21:24)
[2017-09-28 21:39] VITALS: BP 111/53
[2017-09-28 21:42] VITALS: BP 111/53
--- NOTE | 2017-09-29 11:16 | Diagnostic Imaging Report ---
Indications: hip pain Findings: AP pelvis and lateral views of both hips obtained. No acute fracture is demonstrated. There is mild narrowing of the hip joint space bilaterally. Alignment of the hip is within normal limits. Soft tissues are unremarkable. Degenerative changes of the lower lumbar spine are noted incidentally. Impression: Negative for acute injury.
[2017-09-29] MEDS ORDERED: ABILIFY5 MG ORAL (12:27)
[2017-09-29] MEDS ORDERED: VISTARIL50 MG ORAL (12:29)
[2017-09-29] MEDS ORDERED: jardiance ORAL (12:32)
[2017-09-29] MEDS ORDERED: ROBAXIN500 MG PO (15:23)
[2017-09-29] MEDS ORDERED: IBUPROFEN600 MG ORAL (15:23)
[2017-09-29] MEDS ORDERED: NORCO 5-325 TA1 EACH ORAL (15:23)
== END 2017-09-28 21:42 | disposition home or self-care (01) ==
LOC: EMR 21:01
DX: M25.551 Pain in right hip (principal); M25.552 Pain in left hip; Z91.018 Allergy to other foods; I10 Essential (primary) hypertension; E11.9 Type 2 diabetes mellitus without complications
CPT/HCPCS: 72170; 81003; 81025; 96372; 99284

== ENCOUNTER 2017-09-29 12:08 | Emergency (ER) | payer MEDICARE, MEDICAID ==
[~2017-09-29] VITALS: Ht 162.6 cm; Wt 142.9 kg
[~2017-09-29 12:08] MED LIST changes: +LIDOCAINE700 M1 TP; +TYLENOL EXTRA500 MG ORAL
[2017-09-29] MEDS ORDERED: ABILIFY5 MG ORAL (12:27)
[2017-09-29] MEDS ORDERED: VISTARIL50 MG ORAL (12:29)
[2017-09-29] MEDS ORDERED: jardiance ORAL (12:32)
--- NOTE | 2017-09-29 12:42 | Emergency Room Report ---
History of Present Illness General Chief Complaint: Pain Source: Patient, Family Member Present Illness HPI Patient returns today with severe right hip and back pain. It is intermittent. She was seen here last night and had evaluation with urinalysis,xrays of her hip and lumbar spine films. She was treated with Toradol and [place] however still had pain when she left. She was given a prescription for lidocaine patches and also Tylenol but did not fill these as she says that she has lidocaine patch and would've had to buy the Tylenol [id number]. She denies any fevers, dysuria, saddle numbness or weakness. The pain is severe at this time. She's not on blood thinners and has no oncologic problem. Pain rated 10/10, sharp and radiating from her back to L hip area. The patient has history of sleep apnea. She's had baclofen prescribed for her for muscle spasm in the past and her doctor did not want her to use it because of the sleep apnea. H/O Asthma. No wheezing. The patient also has a history of anxiety. The patient has morbid obesity. Allergies: Coded Allergies: TREE NUT (Verified Allergy, Severe, 09/28/17) SOYBEAN (Verified Allergy, Intermediate, 09/28/17) BENAZEPRIL (Verified Allergy, Unknown, 09/28/17) Patient History Past Medical History: see triage record Social History: Denies: smoking, alcohol use, drug use Social History Narrative brought by mother Reviewed Nursing Documentation: PMH: Agreed; PSxH: Agreed Nursing Documentation-PMH Past Medical History: No History, Except For Hx Cardiac Problems: No Hx Hypertension: Yes Hx Asthma: Yes Hx COPD: No Hx Diabetes: Yes Hx Cancer: No Hx Gastrointestinal Problems: No Hx Dialysis: No Hx Neurological Problems: No Review of Systems All Other Systems: negative except mentioned in HPI Physical Exam Vital Signs Date Time Temp Pulse Resp B/P (MAP) Pulse Ox O2 Delivery O2 Flow Rate FiO2 09/29/17 12:15 97.8 93 16 134/71 98 Room Air 97.9 Sp02 EP Interpretation: reviewed, normal General Appearance: well appearing, no apparent distress - however, she has episodes of increased pain which are fleeting, GCS 15 Head: normocephalic, atraumatic Eyes: bilateral eye normal inspection, bilateral eye PERRL ENT: hearing grossly normal, normal voice Neck: full range of motion, supple Respiratory: no respiratory distress, speaking full sentences Cardiovascular #1: regular rate, rhythm, no edema Gastrointestinal: normal bowel sounds, non tender, overweight Musculoskeletal: no calf tenderness, other - lumbar tenderness R sided. SLR initial pain, then full bilat (more with changing position) Neurologic: alert, oriented x3, motor strength/tone normal, DTRs symmetric, sensory intact - subjectife numbness R foot, cerebellar normal, normal gait, speech normal Psychiatric: mood/affect normal - poor understanding of processes Skin: no rash Medical Decision Making Diagnostic Impression: Primary Impression: Back pain Qualified Codes: M54.5 - Low back pain Additional Impressions: muscle spasm Morbid obesity ER Course Patient presents with severe lumbar pain it's intermittent. Differential includes muscle spasm, degenerative arthritis, strain amongst others. The fact that the pain is intermittent lenses to muscle spasm. Evaluation was fairly complete yesterday. The patient's pain isn't consistent with gout. She'll be treated with analgesia and muscle relaxants at this time. Imaging studies do not need to be repeated. Yesterday's urine glucose was 4+. Will perform accucheck today. Pelvis and hip xrays yesterday: No acute fracture is demonstrated. There is mild narrowing of the hip joint space bilaterally. Alignment of the hip is within normal limits. Soft tissues are unremarkable. Degenerative changes of the lower lumbar spine are noted incidentally. Accucheck 98 Patient states still same after first dose of morphine (and other meds). However, not screaming in pain and pupils constricted. Second dose ordered. Patient improved. Discussed findings and treatment plan. Patient stable for outpatient observation and treatment. Yesterday's UA reviewed and negative. Last Vital Signs Date Time Temp Pulse Resp B/P (MAP) Pulse Ox O2 Delivery O2 Flow Rate FiO2 09/29/17 15:31 97.8 16 134/71 98 Room Air 208.0 09/29/17 12:15 93 Status: improved Disposition: HOME, SELF-CARE Condition: Improved Scripts Ibuprofen* (MOTRIN*) 600 Mg Tablet 600 MG ORAL Q8H PRN for For Pain, #10 TAB 0 Refills Prov: Joel Montes M.D. 09/29/17 Methocarbamol* (ROBAXIN*) 500 Mg Tablet 500 MG PO TID, #10 TAB 0 Refills Prov: Joel Montes M.D. 09/29/17 Hydrocodone Bit/Acetaminophen 5-325* (NORCO 5-325*) 1 Each Tablet 1 TAB ORAL Q6H PRN for For Pain, #12 TAB 0 Refills Prov: Joel Montes M.D. 09/29/17 Joel Montes M.D. Sep 29, 2017 12:42
[2017-09-29] MEDS ORDERED: Methocarbamol 500mg tab ORAL ONE (12:45)
[2017-09-29] MEDS ORDERED: Morphine Sulfate 4mg/ml Inj IVP ONE ×2 (12:45→15:00)
[2017-09-29] MEDS ORDERED: ROBAXIN500 MG PO (15:23)
[2017-09-29] MEDS ORDERED: IBUPROFEN600 MG ORAL (15:23)
[2017-09-29] MEDS ORDERED: NORCO 5-325 TA1 EACH ORAL (15:23)
[2017-09-29 15:31] VITALS: BP 134/71
== END 2017-09-29 15:31 | disposition home or self-care (01) ==
LOC: EMR 12:40
DX: M25.551 Pain in right hip (principal); M54.5 Low back pain; M62.838 Other muscle spasm; E66.9 Obesity, unspecified; Z68.43 Body mass index [BMI] 50.0-59.9, adult; I10 Essential (primary) hypertension; E11.9 Type 2 diabetes mellitus without complications; J45.909 Unspecified asthma, uncomplicated
CPT/HCPCS: 96374; 96376; 99284; J2270; 96375

== ENCOUNTER → 2018-06-05 | Emergency (ER) | payer MEDICARE, MEDICAID ==
[~2018-06-05] VITALS: Ht 162.6 cm; Wt 145.1 kg
[~2018-06-05] MED LIST changes: +ABILIFY5 MG ORAL; +Albuterol ud Inhalation HHN ONE; +CHLOR-TRIMETON4 MG PO; +GUAIFENESIN-CO118 M1 ORAL; +IBUPROFEN600 MG ORAL; +Ipratropium 0.02% Inh Soln 2.5ml UD HHN ONE; +ROBAXIN500 MG PO; +TYLENOL325 MG ORAL; +VISTARIL50 MG ORAL; +guaiFENesin w/Codeine 5ml Liq ud ORAL PRN; +jardiance ORAL
[2018-06-05 14:06] VITALS: BP 112/46
--- NOTE | 2018-06-05 14:10 | Emergency Room Report ---
History of Present Illness General Chief Complaint: Upper Respiratory Illness Source: Patient Present Illness HPI The patient presents with wheezing, cough and chest pain. This started on Thursday. She has a history of asthma. She's been using an inhaler. She's not on prednisone at this time but has taken in the past. This is not her worst attack. She denies any fevers or chills. She's been coughing some yellow phlegm. The pain in her chest is 7/10 and mainly when she coughs. There is some swelling in her legs but she denies any calf pain. She's never had any blood clots. Complains about some nasal congestion. No palpitations, nausea, vomiting, diarrhea, dysuria, abdominal pain, depression , visual changes (prior injury L eye), headache. H/O HTN Allergies: Coded Allergies: TREE NUT (Verified Allergy, Severe, 09/28/17) SOYBEAN (Verified Allergy, Intermediate, 09/28/17) BENAZEPRIL (Verified Allergy, Unknown, 09/28/17) Patient History Past Medical History: see triage record Social History: Denies: smoking Social History Narrative with Mom Last Menstrual Period: 05/24/18 Reviewed Nursing Documentation: PMH: Agreed; PSxH: Agreed Nursing Documentation-PMH Past Medical History: No History, Except For Hx Cardiac Problems: No Hx Hypertension: Yes Hx Asthma: Yes Hx COPD: No Hx Diabetes: Yes Hx Cancer: No Hx Gastrointestinal Problems: No Hx Dialysis: No Hx Neurological Problems: No Review of Systems All Other Systems: negative except mentioned in HPI Physical Exam Vital Signs Date Time Temp Pulse Resp B/P (MAP) Pulse Ox O2 Delivery O2 Flow Rate FiO2 06/05/18 13:53 98.1 106 22 112/46 99 Room Air Sp02 EP Interpretation: reviewed, normal General Appearance: obese Head: normocephalic Eyes: bilateral eye normal inspection, bilateral eye PERRL, bilateral eye EOMI ENT: moist mucus membranes Neck: supple Respiratory: no respiratory distress, wheezing, expiration, inspiration Cardiovascular #1: regular rate, rhythm, edema - trace bilaterally Cardiovascular #2: 2+ radial (R) Gastrointestinal: normal inspection, normal bowel sounds, non tender, no mass, non-distended, overweight Genitourinary: no CVA tenderness Musculoskeletal: back normal, gait/station normal, normal range of motion, no calf tenderness Neurologic: alert, oriented x3, grossly normal Psychiatric: mood/affect normal Skin: normal inspection, warm/dry Medical Decision Making Diagnostic Impression: Primary Impression: Acute asthma exacerbation Qualified Codes: J45.41 - Moderate persistent asthma with (acute) exacerbation ER Course Patient presents with cough wheezing chest pain with history of asthma. I differential includes pneumonia, asthma exacerbation, pleurisy, pulmonary embolus amongst others. Based on her else oximetry pulmonary embolus is less likely. Evaluation will be with EKG, chest x-ray and Accu-Chek. The patient will be treated with prednisone and breathing treatments. Also she will be given analgesia. CXR clear. EKG no injury. Accucheck 165. Improved after first breathing treatments, but still wheezing. Repeat. Improved after second treatment. Discussed treatment plan with patient and mother. Patient stable for outpatient observation and treatment. EKG Diagnostic Results Rate: tachycardiac Rhythm: NSR ST Segments: no acute changes Rhythm Strip Diag. Results EP Interpretation: yes Rhythm: no PVC's, no ectopy, other - Sinus tachycardia Chest X-Ray Diagnostic Results Chest X-Ray Diagnostic Results : Chest X-Ray Ordered: Yes # of Views/Limited/Complete: 1 View Indication: Shortness of Breath EP Interpretation: Yes Interpretation: no consolidation, no effusion, no pneumothorax Impression: No acute disease Electronically Signed by: Electronically signed by Joel Montes MD Last Vital Signs Date Time Temp Pulse Resp B/P (MAP) Pulse Ox O2 Delivery O2 Flow Rate FiO2 06/05/18 17:48 98.0 98 20 118/60 100 Room Air 21 Status: improved Disposition: HOME, SELF-CARE Condition: Improved Scripts Chlorpheniramine Maleate (CHLOR-TRIMETON) 4 Mg Tablet 4 MG PO Q6HR, #14 TAB Prov: Joel Montes MD 06/05/18 Acetaminophen (Tylenol) 325 Mg Tablet 650 MG ORAL Q6H PRN for Prn Pain/Headache/Temp > 101, #20 TAB 0 Refills Prov: Joel Montes MD 06/05/18 Guaifenesin/Codeine Phos* (ROBITUSSIN AC*) 118 Ml Liquid 5 ML ORAL Q6H PRN for For Cough, #90 ML 0 Refills Prov: Joel Montes MD 06/05/18 Prednisone* (PREDNISONE*) 20 Mg Tablet 40 MG ORAL DAILY, #10 TAB Prov: Joel Montes MD 06/05/18 Albuterol Sulfate* (ALBUTEROL SULFATE MDI*) 8.5 Gm Hfa.aer.ad 2 PUFF INH Q6H, #1 EA 0 Refills Prov: Joel Montes MD 06/05/18 Joel Montes MD Jun 05, 2018 14:10
--- NOTE | 2018-06-05 14:10 | NUR ---
ED Nurse Note: patient walked in by herself with steady gait, complaining of SOB, and chest tightness. per patient she can not breath since this morning. AAO x 4, VSS at this time, skin is dry, intact, warm to touch. connected to the monitor, will continue to monitor.
[2018-06-05 15:07] VITALS: BP 112/46
--- NOTE | 2018-06-05 15:18 | Diagnostic Imaging Report ---
EXAM: XR Chest, 1 View CLINICAL HISTORY: DYSPNEA TECHNIQUE: Frontal view of the chest. COMPARISON: No relevant prior studies available. FINDINGS: Lungs: Reduced lung volumes with accentuation of bronchovascular markings. Pleural space: Unremarkable. No pneumothorax. Heart: cardiomegaly. Mediastinum: Unremarkable. Bones/joints: No acute fracture. Upper abdomen: Elevation of the right diaphragm. IMPRESSION: Reduced lung volumes with accentuation of bronchovascular markings.
[2018-06-05 16:41] VITALS: BP 115/50
--- NOTE | 2018-06-05 16:41 | NUR ---
ED Nurse Note: patient deny pain, VSS at this time, AAO x 4. patient in the bed getting breathing treatment.
[2018-06-05 17:48] VITALS: BP 120/60
--- NOTE | 2018-06-05 17:50 | NUR ---
ED Nurse Note: Pt cleared by health care Provider for discharge. DC instructions/prescription was given and explained to pt and verbalized understanding of teachings. All medical deviecs such as ID band removed. Pt is AAO x4, ambulatory and left with all personal belongings.
== END | disposition home or self-care (01) ==
LOC: EMR 14:13
DX: J45.41 Moderate persistent asthma with (acute) exacerbation (principal); I10 Essential (primary) hypertension; E11.9 Type 2 diabetes mellitus without complications
CPT/HCPCS: 71045; 82962; 93005; 94640; 94664; 99284; J7512

== ENCOUNTER 2018-10-10 09:10 | Emergency (ER) | payer MEDICARE, MEDICAID ==
[~2018-10-10] VITALS: Ht 162.6 cm; Wt 145.1 kg
[~2018-10-10 09:10] MED LIST changes: +ABILIFY2 MG ORAL; -Albuterol ud Inhalation HHN ONE; +GABAPENTIN400 MG ORAL; -Ipratropium 0.02% Inh Soln 2.5ml UD HHN ONE; +LEVOFLOXACIN500 MG ORAL; +MEDROL DOSEPAK4 MG ORAL; +MICARDIS20 MG ORAL; +MONTELUKAST SOD10 MG ORAL; -guaiFENesin w/Codeine 5ml Liq ud ORAL PRN; +victoza
[2018-10-10] MEDS ORDERED: CYCLOBENZAPRINE10 MG ORAL (09:24)
[2018-10-10] MEDS ORDERED: VISTARIL50 MG ORAL (09:24)
[2018-10-10 09:27] VITALS: BP 112/71
--- NOTE | 2018-10-10 09:27 | NUR ---
ED Nurse Note: pt walked in to ER c/o something stuck in her Lt lower throat probably popcorn that she ate on . pt c/o pain 10/10 and pt is comfortable and resting and using her phone in chair. pt aao x 4 and ambulatory. skin clean and intact. calm and cooperative. the pain site has no swelling or drainage.
--- NOTE | 2018-10-10 09:36 | NUR ---
ED Nurse Note: ERMD at bedside.
--- NOTE | 2018-10-10 09:37 | NUR ---
ED Nurse Note: pt went down for x-ray with steady ambulating in stable condition.
--- NOTE | 2018-10-10 09:48 | NUR ---
ED Nurse Note: pt came back from x-ray with tech with steady gait and in stable condition.
[2018-10-10] MEDS ORDERED: AMOXICILLIN500 MG ORAL (10:45)
[2018-10-10 10:50] VITALS: BP 121/80
--- NOTE | 2018-10-10 10:50 | NUR ---
ER DISCHARGE NOTE: Patient is cleared to be discharged per ERMD, pt is aox4, on room air, with stable vital signs. pt was given dc and electornically sent prescription instructions, pt was able to verbalize understanding, pt id band removed. pt is able to ambulate with steady gait. pt took all belongings.
--- NOTE | 2018-10-10 11:02 | Emergency Room Report ---
History of Present Illness General Chief Complaint: Sore Throat Source: Patient Present Illness HPI 43-year-old female presents ED for evaluation. Complaining of sore throat for the last 3 days. States that she may have swallowed a popcorn kernel and it feels stuck in her throat. Notes pain at her tonsils. Pain is dull, 7 out of 10, nonradiating. Denies fevers or chills. Denies cough. Denies difficulty swallowing or breathing. No other aggravating relieving factors. Denies any other associated symptoms Allergies: Coded Allergies: TREE NUT (Verified Allergy, Severe, 09/28/17) SOYBEAN (Verified Allergy, Intermediate, 09/28/17) BENAZEPRIL (Verified Allergy, Unknown, 09/28/17) Patient History Past Medical History: DM, HTN, asthma Pertinent Family History: none Social History: Denies: smoking, alcohol use, drug use Last Menstrual Period: august Now: No : 0 Para: 0 Immunizations: UTD Reviewed Nursing Documentation: PMH: Agreed; PSxH: Agreed Nursing Documentation-PMH Hx Cardiac Problems: Yes Hx Hypertension: Yes Hx Asthma: Yes Hx COPD: No Hx Diabetes: Yes Hx Cancer: No Hx Gastrointestinal Problems: No Hx Dialysis: No Hx Neurological Problems: No Review of Systems All Other Systems: negative except mentioned in HPI Physical Exam Vital Signs Date Time Temp Pulse Resp B/P (MAP) Pulse Ox O2 Delivery O2 Flow Rate FiO2 10/10/18 09:18 98.4 107 18 112/71 (85) 97 Room Air Sp02 EP Interpretation: reviewed, normal General Appearance: no apparent distress, alert, GCS 15, non-toxic, obese Head: normocephalic, atraumatic Eyes: bilateral eye normal inspection, bilateral eye PERRL ENT: hearing grossly normal, no angioedema, normal voice, uvula midline, tonsillar exudate Neck: full range of motion, supple/symm/no masses, other - no stridor Respiratory: chest non-tender, lungs clear, normal breath sounds, speaking full sentences Cardiovascular #1: regular rate, rhythm, no edema Cardiovascular #2: 2+ carotid (R), 2+ carotid (L), 2+ radial (R), 2+ radial (L) , 2+ dorsalis pedis (R), 2+ dorsalis pedis (L) Gastrointestinal: normal bowel sounds, non tender, soft, non-distended, no guarding, no rebound Rectal: deferred Genitourinary: normal inspection, no CVA tenderness Musculoskeletal: back normal, gait/station normal, normal range of motion, non- tender Neurologic: alert, oriented x3, responsive, motor strength/tone normal, sensory intact, speech normal Psychiatric: judgement/insight normal, memory normal, mood/affect normal, no suicidal/homicidal ideation Reflexes: 3+ bicep (R), 3+ bicep (L), 3+ tricep (R), 3+ tricep (L), 3+ knee (R) , 3+ knee (L) Lymphatic: no adenopathy Medical Decision Making Diagnostic Impression: Primary Impression: Throat pain ER Course Hospital Course 43 yo F presents to ED c/o throat pain Differential diagnoses include: URI, pharyngitis, otitis media Clinical course Patient placed on stretcher. After initial history, physical exam reveals an obese female in no acute distress. Bilateral TM unremarkable. There is some noted exudates on the tonsils. No stridor. No clinical evidence of foreign body but patient is still concerned about this Ordered an x-ray soft tissue neck which shows no evidence of radiopaque foreign body. Clinically there is not evidence of foreign body. Possibly pain related to pharyngitis with exudates noted. Will discharge with antibiotics. Will provide ENT referral. Safe for discharge with close outpatient follow-up Diagnosis - throat pain Stable and discharged home with prescriptions for amoxicillin. Instructed to followup with PMD. return to ED if symptoms recur or worsen Other X-Ray Diagnostic Results Other X-Ray Diagnostic Results : X-Ray ordered: soft tissue neck # of Views/Limited Vs Complete: 2 View Indication: Pain EP Interpretation: Yes Interpretation: no soft tissue swelling, no fractures, other - no evidence of foreign body Impression: No acute disease Electronically Signed by: Electronically signed by Herbert Petersen MD Last Vital Signs Date Time Temp Pulse Resp B/P (MAP) Pulse Ox O2 Delivery O2 Flow Rate FiO2 10/10/18 09:27 98.4 86 18 112/71 97 Room Air Status: improved Disposition: HOME, SELF-CARE Condition: Stable Scripts Amoxicillin* (AMOXIL*) 500 Mg Capsule 500 MG ORAL THREE TIMES A DAY, #21 CAP Prov: Herbert Petersen MD 10/10/18 Referrals: NON PHYSICIAN (PCP) Jailene Quinones MD Patient Instructions: Swallowed Foreign Body, Adult, [id number], Pharyngitis , [id number] Herbert Petersen MD Oct 10, 2018 11:02
--- NOTE | 2018-10-10 14:31 | Diagnostic Imaging Report ---
Indication: Neck pain. Ingested foreign Comparison: None Findings: Two views of the neck performed. There is no soft tissue swelling or mass identified. The epiglottis is unremarkable. Subglottic airway and retropharyngeal region appear clear. No radiopaque foreign body is identified. Impression: Negative evaluation of the neck.
== END 2018-10-10 10:50 | disposition home or self-care (01) ==
LOC: EMR 09:40
DX: R07.0 Pain in throat (principal); E66.9 Obesity, unspecified; E11.9 Type 2 diabetes mellitus without complications; I10 Essential (primary) hypertension; Z91.018 Allergy to other foods
CPT/HCPCS: 70360; 99283

== ENCOUNTER 2019-01-14 17:37 | Emergency (ER) | payer MEDICARE, MEDICAID ==
[~2019-01-14] VITALS: Ht 162.6 cm; Wt 142.0 kg
[~2019-01-14 17:37] MED LIST changes: +AMOXICILLIN500 MG ORAL; +CYCLOBENZAPRINE10 MG ORAL
--- NOTE | 2019-01-14 17:57 | NUR ---
ED Nurse Note: Pt walked in ED from home c/o left lower back pain x2 days worsening today. Pt aox4, VSS. Last BM today. Denies urinary problems.
[2019-01-14 17:58] VITALS: BP 115/64
--- NOTE | 2019-01-14 18:10 | NUR ---
ED Nurse Note: ERMD at bedside.
[2019-01-14] MEDS ORDERED: Ketorolac 60mg Inj IM ONE (18:15)
--- NOTE | 2019-01-14 18:20 | Emergency Room Report ---
History of Present Illness General Chief Complaint: Back Pain-No Injury Source: Medical Record Present Illness HPI 43-year-old female presenting with left-sided mid back pain, started 3 days ago , worsening with movement, has not tried any medications for pain today,. Reported using ibuprofen 3 days ago with no improvement. Denies any trauma falls or injuries. Allergies: Coded Allergies: TREE NUT (Verified Allergy, Severe, 09/28/17) SOYBEAN (Verified Allergy, Intermediate, 09/28/17) BENAZEPRIL (Verified Allergy, Unknown, 09/28/17) Patient History Last Menstrual Period: 01/07/19 Nursing Documentation-[facility] Past Medical History: No History, Except For Hx Cardiac Problems: Yes Hx Hypertension: Yes Hx Asthma: Yes Hx COPD: No Hx Diabetes: Yes Hx Cancer: No Hx Gastrointestinal Problems: No Hx Dialysis: No Hx Neurological Problems: No Review of Systems Constitutional: Denies: chills, fever ENT: Denies: ear discharge, nose congestion Respiratory: Denies: cough, shortness of breath Cardiovascular: Denies: chest pain, palpitations Gastrointestinal: Denies: abdominal pain, diarrhea Genitourinary: Denies: dysuria, hematuria Musculoskeletal: Reports: back pain; Denies: joint pain Skin: Denies: rash, lesions Neurological: Denies: headache Physical Exam Vital Signs Date Time Temp Pulse Resp B/P (MAP) Pulse Ox O2 Delivery O2 Flow Rate FiO2 01/14/19 17:40 98.6 105 18 115/64 (81) 96 Room Air Sp02 EP Interpretation: reviewed, normal General Appearance: no apparent distress, alert, GCS 15, non-toxic Head: normocephalic, atraumatic Eyes: bilateral eye normal inspection, bilateral eye PERRL ENT: hearing grossly normal, normal pharynx, no angioedema, normal voice Neck: full range of motion, supple/symm/no masses Respiratory: chest non-tender, lungs clear, normal breath sounds, speaking full sentences Cardiovascular #1: regular rate, rhythm, no edema Cardiovascular #2: 2+ radial (R), 2+ radial (L), 2+ dorsalis pedis (R), 2+ dorsalis pedis (L) Gastrointestinal: normal bowel sounds, non tender, soft, non-distended, no guarding, no rebound Rectal: deferred Genitourinary: normal inspection, no CVA tenderness Musculoskeletal: normal inspection, back normal, gait/station normal, normal range of motion, no calf tenderness, tender - Tenderness to the left mid back Neurologic: alert, oriented x3, responsive, motor strength/tone normal, sensory intact, speech normal Psychiatric: judgement/insight normal, memory normal, mood/affect normal, no suicidal/homicidal ideation Lymphatic: no adenopathy Medical Decision Making ER Course 43yo F with chronic back pain, pw back pain today, tried otc medications with minimal improvement. No trauma DDX: musculoskeletal,compression fx,herniated disc,sciatica,spinal stenosis, epidural abscess,osteomyelitis,cauda equina,mass-tumor Less likely fracture, given no new injuries. Physical exam findings not consistent with cauda equina, spinal stenosis or abscess/mass-tumor. no saddle anesthesia or LE weakness Pts pain imprved with medications. pt recommended follow up at orthopedist and PMD for chronic back pain. Pt given clear return precautions. Last Vital Signs Date Time Temp Pulse Resp B/P (MAP) Pulse Ox O2 Delivery O2 Flow Rate FiO2 01/14/19 17:58 98.6 86 18 115/64 96 Room Air Status: improved Disposition: HOME, SELF-CARE Condition: Stable Adolfo Patel M.D. Jan 14, 2019 18:20
--- NOTE | 2019-01-14 19:03 | NUR ---
HAND-OFF: Report given to YUSEF Burrows.
--- NOTE | 2019-01-14 19:04 | NUR ---
ED Nurse Note: Received report from Jennifer HOLBROOK.
[2019-01-14 19:07] VITALS: BP 115/64
--- NOTE | 2019-01-14 19:07 | NUR ---
ED Nurse Note: Pt cleared by ERMD for discharge. DC instructions was given and explained to pt and verbalized understanding of teachings. All medical deviecs such as ID band removed. Pt is AAO x4, ambulatory and left with all personal belongings.
[2019-01-14] MEDS ORDERED: oxyCODONE HCL/Acetaminophen 5/325mg ORAL ONE (19:15)
== END 2019-01-14 19:07 | disposition home or self-care (01) ==
LOC: EMR 19:04
DX: M54.5 Low back pain (principal); G89.29 Other chronic pain; Z91.018 Allergy to other foods; I10 Essential (primary) hypertension; E11.9 Type 2 diabetes mellitus without complications; Z88.8 Allergy status to other drugs, medicaments and biological substances
CPT/HCPCS: 96372; 99283

== ENCOUNTER 2019-01-17 16:44 | Emergency (ER) | payer MEDICARE, MEDICAID ==
[~2019-01-17] VITALS: Ht 162.6 cm; Wt 142.0 kg
[2019-01-17 16:50] VITALS: BP 144/83
--- NOTE | 2019-01-17 16:50 | NUR ---
ED Nurse Note: PT walked into ED from home due to R-side flank area when asked where specifically PT states "sides". PT in bed, VS stable, no respiratory distress noted on RA, A/O x 4, appropriate, responds to questions, was last seen 01/14/19 at [facility]. Will continue to monitor PT.
[2019-01-17] MEDS ORDERED: LANTUS5 UNITS SUBQ (16:54)
[2019-01-17 17:47] LABS: BASOPHILS % (AUTO) 1.5 % (0.0-2.0); EOSINOPHILS % (AUTO) 4.2 % (0.0-3.0); HEMATOCRIT 40.3 % (37.0-47.0); HEMOGLOBIN 12.6 G/DL (12.0-16.0); LYMPHOCYTES % (AUTO) 26.7 % (20.0-45.0); MEAN CORPUSCULAR VOLUME 85 FL (80-99); MONOCYTES % (AUTO) 9.9 % (1.0-10.0); NEUTROPHILS % (AUTO) 57.8 % (45.0-75.0); PLATELET COUNT 249 K/UL (150-450); RED BLOOD COUNT 4.72 M/UL (4.20-5.40); RED CELL DISTRIBUTION WIDTH 11.6 % (11.6-14.8); WHITE BLOOD COUNT 7.1 K/UL (4.8-10.8)
[2019-01-17 17:48] LABS: APPEARANCE,URINE CLEAR; BILIRUBIN, URINE NEGATIVE (NEGATIVE); GLUCOSE, URINE (UA) 4+ (NEGATIVE); KETONES,URINE NEGATIVE (NEGATIVE); LEUKOCYTE ESTERASE ,URINE NEGATIVE (NEGATIVE); NITRITE,URINE NEGATIVE (NEGATIVE); PH,URINE 5 (4.5-8.0); PROTEIN,URINE NEGATIVE (NEGATIVE); UROBILINOGEN,URINE NORMAL MG/DL (0.0-1.0)
[2019-01-17 17:56] LABS: COLOR,URINE YELLOW
[2019-01-17 18:02] LABS: ANION GAP 13 mmol/L (5-15); BLOOD UREA NITROGEN 8 mg/dL (7-18); CARBON DIOXIDE 25 MMOL/L (21-32); CHLORIDE 104 MMOL/L (98-107); CREATININE 0.8 MG/DL (0.55-1.30); POTASSIUM 3.9 MMOL/L (3.5-5.1); SODIUM 142 MMOL/L (136-145)
[2019-01-17 18:07] LABS: ALANINE AMINOTRANSFERASE 57 U/L (12-78); ALBUMIN 3.8 G/DL (3.4-5.0); ALKALINE PHOSPHATASE 44 U/L (46-116); ASPARTATE AMINO TRANSFERASE 77 U/L (15-37); BILIRUBIN,TOTAL 0.4 MG/DL (0.2-1.0)
--- NOTE | 2019-01-17 18:12 | Emergency Room Report ---
History of Present Illness General Chief Complaint: Pain Source: Patient, Medical Record Present Illness HPI 43-year-old female who is morbidly obese and has history of diabetes reporting currently controlled with insulin and metformin here complaining of worsening pain in the lumbar area and now radiating to right flank. Patient was here 2 days ago at [facility] was diagnosed with lumbar spine strain. Patient is requesting an x-ray. Patient is demanding and shots and pulled with needle. Patient is rating the pain 10 out of 10 and reports repeatedly that combination of Flexeril, ibuprofen, Tylenol, and lidocaine patch do not work and she needs something stronger. Denies any fall or injury reports that she actually woke up with this pain 2 days ago. Has not been to primary care physician for follow -up. No bony tenderness is noted on palpation. Patient denies any urinary symptoms. No CVA tenderness noted. Denies hematuria, and reports that she is up-to-date with her menses. Allergies: Coded Allergies: TREE NUT (Verified Allergy, Severe, 09/28/17) SOYBEAN (Verified Allergy, Intermediate, 09/28/17) BENAZEPRIL (Verified Allergy, Unknown, 09/28/17) Patient History Past Medical History: see triage record Past Surgical History: unable to obtain Pertinent Family History: none Last Menstrual Period: 01/07/2019 Now: No Immunizations: UTD Reviewed Nursing Documentation: PMH: Agreed; PSxH: Agreed Nursing Documentation-PMH Past Medical History: No History, Except For Hx Cardiac Problems: Yes Hx Hypertension: Yes Hx Asthma: Yes Hx COPD: No Hx Diabetes: Yes Hx Cancer: No Hx Gastrointestinal Problems: No Hx Dialysis: No History Of Psychiatric Problem: No Hx Neurological Problems: No Hx Cerebrovascular Accident: No Hx Seizures: No Review of Systems All Other Systems: negative except mentioned in HPI Physical Exam Vital Signs Date Time Temp Pulse Resp B/P (MAP) Pulse Ox O2 Delivery O2 Flow Rate FiO2 01/17/19 16:48 98.2 102 18 144/83 (103) 99 Room Air Sp02 EP Interpretation: reviewed, normal General Appearance: no apparent distress, alert, GCS 15, non-toxic Head: normocephalic, atraumatic Eyes: bilateral eye normal inspection, bilateral eye PERRL ENT: hearing grossly normal, normal pharynx, no angioedema, normal voice Neck: full range of motion, supple, supple/symm/no masses Respiratory: chest non-tender, lungs clear, normal breath sounds, no rhonchi, speaking full sentences Cardiovascular #1: regular rate, rhythm, no edema, no murmur Gastrointestinal: normal bowel sounds, non tender, soft, non-distended, no guarding, no rebound Rectal: deferred Genitourinary: normal inspection, no CVA tenderness Musculoskeletal: back normal, gait/station normal, normal range of motion, non- tender, no calf tenderness Neurologic: alert, oriented x3, responsive, motor strength/tone normal, sensory intact, speech normal Psychiatric: judgement/insight normal, memory normal, mood/affect normal, no suicidal/homicidal ideation Skin: no rash Lymphatic: no adenopathy Medical Decision Making PA Attestation All diagnoses and treatment plans were reviewed and discussed with my supervising physician Dr. Merida Diagnostic Impression: Primary Impression: Lumbar spine strain Additional Impression: Strain of thoracic region ER Course 43-year-old female who is morbidly obese and has history of diabetes reporting currently controlled with insulin and metformin here complaining of worsening pain in the lumbar area and now radiating to right flank. Patient was here 2 days ago at [facility] was diagnosed with lumbar spine strain. Patient is requesting an x-ray. Patient is demanding and shots and pulled with needle. Patient is rating the pain 10 out of 10 and reports repeatedly that combination of Flexeril, ibuprofen, Tylenol, and lidocaine patch do not work and she needs something stronger. Denies any fall or injury reports that she actually woke up with this pain 2 days ago. Has not been to primary care physician for follow -up. No bony tenderness is noted on palpation. Patient denies any urinary symptoms. No CVA tenderness noted. Denies hematuria, and reports that she is up-to-date with her menses. Ddx considered but are not limited to: Lumbar spine sprain, strain, fracture, contusion, neuropathy Vital signs: are WNL, pt. is afebrile H&PE are most consistent with: Lumbar strain, strain of thoracic region ORDERS: No need for x-ray as patient not fall or injure himself. Also patient has BMI of 53.7. UA, CBC and CMP to indicate whether there is need to do CT scan to rule out renal abnormality. Ibuprofen, Robaxin, ER intervention: Toradol as requested by patient. DISCHARGE: At this time pt. is stable for d/c to home. Will provide printed patient care instructions, and any necessary prescriptions. Care plan and follow up instructions have been discussed with the patient prior to discharge. Patient to follow-up with primary care providers and possibly physical therapy. Last Vital Signs Date Time Temp Pulse Resp B/P (MAP) Pulse Ox O2 Delivery O2 Flow Rate FiO2 01/17/19 16:50 98.2 18 144/83 99 Room Air 01/17/19 16:48 102 Disposition: HOME, SELF-CARE Condition: Stable Scripts Methocarbamol* (ROBAXIN-500*) 500 Mg Tablet 500 MG ORAL QID PRN for For Pain, #20 TAB 0 Refills Prov: Akiko Calderon 01/17/19 Ibuprofen (Ibu) 800 Mg Tablet 800 MG PO TID, #30 TAB Prov: Akiko Calderon 01/17/19 Referrals: NON PHYSICIAN (PCP) Patient Instructions: Lumbosacral Strain, Thoracic Strain, [id number] Additional Instructions: Follow-up with your primary care provider for further assessment and referral to physical therapy at this time no x-ray no further imaging is needed as you had no fall or injury and denies any heavy lifting. Akiko Calderon Jan 17, 2019 18:12
[2019-01-17] MEDS ORDERED: IBU800 MG PO (18:15)
[2019-01-17] MEDS ORDERED: ROBAXIN-500MG ORAL (18:15)
[2019-01-17] MEDS ORDERED: Ketorolac 60mg Inj IM ONE (18:45)
[2019-01-17 18:52] VITALS: BP 144/83
--- NOTE | 2019-01-17 18:52 | NUR ---
ER DISCHARGE NOTE: Patient is cleared to be discharged per ERMD, pt is aox4, on room air, with stable vital signs. pt was given dc and prescription instructions, pt was able to verbalize understanding, pt id band and iv site removed without complications. pt is able to ambulate with steady gait. pt took all belongings.
== END 2019-01-17 18:52 | disposition home or self-care (01) ==
LOC: EMR 17:00
DX: S39.012A Strain of muscle, fascia and tendon of lower back, initial encounter (principal); S29.012A Strain of muscle and tendon of back wall of thorax, initial encounter; E11.9 Type 2 diabetes mellitus without complications; J45.909 Unspecified asthma, uncomplicated; Z91.018 Allergy to other foods; I10 Essential (primary) hypertension; Z88.8 Allergy status to other drugs, medicaments and biological substances; Z79.84 Long term (current) use of oral hypoglycemic drugs; Z79.4 Long term (current) use of insulin; E66.01 Morbid (severe) obesity due to excess calories; Z68.43 Body mass index [BMI] 50.0-59.9, adult; X58.XXXA Exposure to other specified factors, initial encounter; Y92.9 Unspecified place or not applicable
CPT/HCPCS: 36415; 80053; 81001; 81025; 85025; 96372; 99283

== ENCOUNTER 2019-02-07 11:01 | Emergency (ER) | payer MEDICARE, MEDICAID ==
[~2019-02-07] VITALS: Ht 162.6 cm; Wt 141.5 kg
[~2019-02-07 11:01] MED LIST changes: +IBU800 MG PO; +LANTUS5 UNITS SUBQ; +ROBAXIN-500MG ORAL
--- NOTE | 2019-02-07 11:15 | NUR ---
ED Nurse Note: Patient walked into ED from home c/o swollen lymph node on her left side of her neck since this morning. patient is alert awake x4 ambulatory steady gait, breathing unlabored and even, sepaking in full senteces.
[2019-02-07 14:00] VITALS: BP 142/64
[2019-02-07] MEDS ORDERED: IBU800 MG PO (14:14)
--- NOTE | 2019-02-07 14:14 | Emergency Room Report ---
History of Present Illness General Chief Complaint: Skin Rash/Abscess Source: Patient Present Illness HPI 43-year-old female with history of diabetes and morbid obesity here complaining of 1 day of a swollen mass on left side of neck with a 3 out of 10 pain. Patient denies all other symptoms such as fever, chills, sore throat, cough and congestion. Reports that she woke up this morning and noticed the swelling on left side of her neck. A mobile hard mass noted in the left anterior neck patient denies any pain radiation, tingling or numbness. Denies difficulty swallowing or breathing. Reports that she had a history of thyroid nodule a year ago which was biopsied and was benign. Denies taking any medication for thyroid. Denies fatigue, night sweats, fever and chills. Has not taken medication for symptom relief. Allergies: Coded Allergies: TREE NUT (Verified Allergy, Severe, 09/28/17) SOYBEAN (Verified Allergy, Intermediate, 09/28/17) BENAZEPRIL (Verified Allergy, Unknown, 09/28/17) Patient History Past Medical History: see triage record Past Surgical History: unable to obtain Pertinent Family History: none Last Menstrual Period: 01/16/19 Now: No Immunizations: UTD Reviewed Nursing Documentation: PMH: Agreed; PSxH: Agreed Nursing Documentation-PMH Past Medical History: No History, Except For Hx Cardiac Problems: Yes Hx Hypertension: Yes Hx Asthma: Yes Hx COPD: No Hx Diabetes: Yes Hx Cancer: No Hx Gastrointestinal Problems: No Hx Dialysis: No Hx Neurological Problems: No Hx Cerebrovascular Accident: No Hx Seizures: No Review of Systems All Other Systems: negative except mentioned in HPI Physical Exam Vital Signs Date Time Temp Pulse Resp B/P (MAP) Pulse Ox O2 Delivery O2 Flow Rate FiO2 02/07/19 11:09 99.3 95 18 98 Room Air Sp02 EP Interpretation: reviewed, normal General Appearance: no apparent distress, alert, GCS 15, non-toxic, obese Head: normocephalic, atraumatic Eyes: bilateral eye normal inspection, bilateral eye PERRL ENT: hearing grossly normal, normal pharynx, no angioedema, normal voice, TMs + canals normal, uvula midline, moist mucus membranes Neck: full range of motion, no meningismus, no bony tend, no carotid bruits, other - Large mobile semi-hardened mass noted in the left anterior cervical lymph node Respiratory: normal inspection, chest non-tender, lungs clear, normal breath sounds, no rhonchi, no respiratory distress, no wheezing Cardiovascular #1: regular rate, rhythm, no edema, no murmur Cardiovascular #2: 2+ carotid (R), 2+ carotid (L) Gastrointestinal: normal bowel sounds, non tender, soft, non-distended, no guarding, no rebound Rectal: deferred Genitourinary: no CVA tenderness Musculoskeletal: back normal, gait/station normal, normal range of motion, non- tender Neurologic: normal inspection, alert, oriented x3, responsive Psychiatric: normal inspection, judgement/insight normal, memory normal Skin: no rash Lymphatic: adenopathy - Left anterior cervical with a mobile Hardend enlarged mass approximately 2 cm Medical Decision Making PA Attestation All diagnoses and treatment plans were reviewed and discussed with my supervising physician Dr. Montes Diagnostic Impression: Primary Impression: Neck mass ER Course 43-year-old female with history of diabetes and morbid obesity here complaining of 1 day of a swollen mass on left side of neck with a 3 out of 10 pain. Patient denies all other symptoms such as fever, chills, sore throat, cough and congestion. Reports that she woke up this morning and noticed the swelling on left side of her neck. A mobile hard mass noted in the left anterior neck patient denies any pain radiation, tingling or numbness. Denies difficulty swallowing or breathing. Reports that she had a history of thyroid nodule a year ago which was biopsied and was benign. Denies taking any medication for thyroid. Denies fatigue, night sweats, fever and chills. Has not taken medication for symptom relief. Ddx considered but are not limited to: [place], tonsillitis, lymphadenopathy, thyroid nodule, neoplastic cervical mass Vital signs: are WNL, pt. is afebrile H&PE are most consistent with: Neck mass that can be neoplastic or inflammatory ORDERS: Thyroid and neck ultrasound as patient refused to do CT scan as she complains of lots of anxiety and does not want to do CT scan even with anxiety medication and also patient is morbidly obese ED INTERVENTIONS: None required at this time. DISCHARGE: At this time pt. is stable for d/c to home. Will provide printed patient care instructions, and any necessary prescriptions. Care plan and follow up instructions have been discussed with the patient prior to discharge. Patient agrees to follow-up with primary care provider for CT scan and proper imaging of the neck as well as biopsy of the mass that has been noted as it is 2.3 cm after I spoke with Dr. Cassidy,. Patient to follow-up with ENT for further assessment as well as endocrinology. Patient understand the proper imaging to distinguish between a mass versus lymph node is a CT scan of soft tissue neck. CT/MRI/US Diagnostic Results CT/MRI/US Diagnostic Results : Imaging Test Ordered: Neck/thyroid ultrasound Impression 2.3 cm mass noted left sided neck anteriorly Last Vital Signs Date Time Temp Pulse Resp B/P (MAP) Pulse Ox O2 Delivery O2 Flow Rate FiO2 02/07/19 11:09 99.3 95 18 98 Room Air Disposition: HOME, SELF-CARE Condition: Stable Scripts Ibuprofen (Ibu) 800 Mg Tablet 800 MG PO BID, #20 TAB Prov: Akiko Calderon 02/07/19 Referrals: NON PHYSICIAN (PCP) Patient Instructions: Cervical Biopsy Additional Instructions: Follow-up with your primary care provider for referral for CT scan of the neck as it is a better management for distinguishing between a lymph node enlargement versus neoplastic finding as you have a 2.3 cm enlarged node that can be secondary to your thyroid versus other pathologies. You do need to be referred to ear nose throat doctor by your primary care physician as well as warehouse receiving clerk if you have history of thyroid issues. Akiko Calderon Feb 07, 2019 14:14
--- NOTE | 2019-02-07 14:20 | Diagnostic Imaging Report ---
Indication: Left-sided palpable neck nodule Technique: Grayscale and duplex Doppler imaging of the thyroid gland and neck performed. Comparison: None Findings: The size, contour, and echogenicity of both lobes of the thyroid gland are within normal limits. No nodules or cysts are demonstrated. In the anterior left side of the neck there is a hypoechoic 2.5 x 1.2 x 2.2 cm mass. This is consistent with a lymph node and may be inflammatory or neoplastic. Further evaluation with contrast CT of the neck may be of benefit. Clinical correlation needed. Other smaller nodes are present. IMPRESSION: 2.5 cm mass, most likely a node in the left anterior neck. Ultrasound appearance is nonspecific. Findings may be inflammatory or neoplastic but requires further clinical workup and evaluation.
[2019-02-07 14:35] VITALS: BP 129/61
--- NOTE | 2019-02-07 14:35 | NUR ---
ER DISCHARGE NOTE: Patient is cleared to be discharged per LIDA RUIZ, pt is aox4, on room air, with stable vital signs. pt was given dc and prescription instructions, pt was able to verbalize understanding, pt id band removed without complications. pt is able to ambulate with steady gait. pt took all belongings.
== END 2019-02-07 14:35 | disposition home or self-care (01) ==
LOC: EMR 12:09
DX: R22.1 Localized swelling, mass and lump, neck (principal); E11.9 Type 2 diabetes mellitus without complications; I10 Essential (primary) hypertension; E66.9 Obesity, unspecified; Z68.43 Body mass index [BMI] 50.0-59.9, adult
CPT/HCPCS: 76536; 99284

== ENCOUNTER 2019-02-12 13:11 | Emergency (ER) | payer MEDICARE, MEDICAID ==
[~2019-02-12] VITALS: Ht 162.6 cm; Wt 142.0 kg
[2019-02-12] MEDS ORDERED: Isovue-300 100ml vial INJ PRN (13:45)
--- NOTE | 2019-02-12 13:46 | Emergency Room Report ---
History of Present Illness General Chief Complaint: Neck Pain Source: Patient, Medical Record (Michael Dobbins DO) Present Illness HPI Patient presents with reports of ongoing fullness and discomfort to the left lower neck area Reports that she was here previously had ultrasound which showed a mass has not been able to follow-up as an outpatient process patient reports that she has severe anxiety during CAT scan imaging And therefore has required Ativan in the past Given this requirement she has not been able to set up any appointment thus far denies any difficulty swallowing Denies any change in speech denies any headache has any chest pain or shortness of breath (Michael Dobbins DO) Allergies: Coded Allergies: TREE NUT (Verified Allergy, Severe, 09/28/17) SOYBEAN (Verified Allergy, Intermediate, 09/28/17) BENAZEPRIL (Verified Allergy, Unknown, 09/28/17) Patient History Past Medical History: see triage record Last Menstrual Period: 02/07/2019 Now: No : 0 Para: 0 Reviewed Nursing Documentation: PMH: Agreed; PSxH: Agreed (Michael Dobbins DO) Nursing Documentation-PMH Hx Cardiac Problems: No Hx Hypertension: Yes Hx Asthma: Yes Hx COPD: No Hx Diabetes: Yes Hx Cancer: No Hx Gastrointestinal Problems: No Hx Dialysis: No Hx Neurological Problems: No Hx Cerebrovascular Accident: No Hx Seizures: No (Michael Dobbins DO) Review of Systems All Other Systems: negative except mentioned in HPI (Michael Dobbins DO) Physical Exam Vital Signs Date Time Temp Pulse Resp B/P (MAP) Pulse Ox O2 Delivery O2 Flow Rate FiO2 02/12/19 13:23 99.9 115 15 103/67 (79) 95 Room Air Sp02 EP Interpretation: reviewed, normal General Appearance: well appearing, no apparent distress Head: normocephalic, atraumatic Eyes: bilateral eye PERRL, bilateral eye EOMI ENT: other - Small palpable mass left submental region approximately 1 cm on palpation well-circumscribed Neck: supple Respiratory: lungs clear Cardiovascular #1: regular rate, rhythm Gastrointestinal: non tender, soft Musculoskeletal: normal inspection Neurologic: alert, oriented x3 Skin: no rash Lymphatic: other - Questionable palpable lymph node left lower anterior neck (Michael Dobbins DO) Medical Decision Making Diagnostic Impression: Primary Impression: Lymphadenitis ER Course Given the patient's history and presentation previous presentation was reviewed ultrasound had revealed a 2.5 cm mass in the left aspect of the neck area Patient also reports previous thyroid biopsy The mass appears to be smaller in size on palpation however given the patient's body habitus it is difficult to get full examination Given the patient's inability to follow-up outpatient imaging study will be attempted here for further input However this appears to be finding that requires close outpatient follow-up as well (Michael Dobbins DO) CT/MRI/US Diagnostic Results CT/MRI/US Diagnostic Results : Impression Final Report EXAM: CT Neck With Intravenous Contrast CLINICAL HISTORY: MASS TECHNIQUE: Axial computed tomography images of the neck with intravenous contrast. CTDI is 308 mGy and DLP is 720.7 mGy-cm. One or more of the following dose reduction techniques were used: automated exposure control, adjustment of the mA and/or kV according to patient size, use of iterative reconstruction technique. COMPARISON: Ultrasound 02/07/2019 FINDINGS: Brain: No mass. No loculated fluid collection. Oropharynx: No significant abnormality. No significant tonsillar enlargement. No peritonsillar abscess. Hypopharynx: No significant abnormality. Larynx: No significant abnormality. Normal epiglottis. Trachea: No significant abnormality. Retropharyngeal space: No significant abnormality. Submandibular/parotid glands: No significant abnormality. Glands are normal in size. Thyroid: No significant abnormality. No enlarged or calcified nodules. Bones/joints: No acute fracture or malalignment. Soft tissues: No significant abnormality. Vasculature: No acute findings. Lymph nodes: Nonspecific bilateral cervical lymphadenopathy. Lung apices: Unremarkable as visualized. IMPRESSION: Nonspecific bilateral cervical lymphadenopathy. No mass. Radiologist: Najma Connor MD Electronically Signed: 02/12/19 16:12 Study ready at 15:53 and initial results transmitted at 16:12 (Jluis Merida MD) Last Vital Signs Date Time Temp Pulse Resp B/P (MAP) Pulse Ox O2 Delivery O2 Flow Rate FiO2 02/12/19 13:23 99.9 115 15 103/67 (79) 95 Room Air (Michael Dobbins DO) Reevaluation Time: 14:36 Reevaluation Impression Assumed care of the patient from Dr. Dobbins at approximately 1400. Briefly, this is a 43-year-old female with a known 2.5 cm mass on the neck found by ultrasound at a previous emergency department visit. At the time of signout we are awaiting CT scan of the neck with IV contrast as well as labs. Disposition dependent on lab and imaging findings. 1420: Labs show bilateral lymph node enlargement however there is no evidence of neck mass. The patient was provided with a copy of her CT report to take to her PMD. She will follow-up with her PMD for any further treatment or evaluation she may require. She understands and agrees with this treatment plan will be discharged home. (Jluis Merida MD) Disposition: HOME, SELF-CARE Condition: Stable Michael Dobbins DO Feb 12, 2019 13:46 Jluis Merida MD Feb 12, 2019 14:38
--- NOTE | 2019-02-12 14:05 | NUR ---
ED Nurse Note:pt. came from home with neck pain, no injury reported , VSS, blood sent to labs
[2019-02-12 14:06] VITALS: BP 103/67
[2019-02-12 14:07] LABS: BASOPHILS % (AUTO) 1.2 % (0.0-2.0); EOSINOPHILS % (AUTO) 3.6 % (0.0-3.0); HEMATOCRIT 43.5 % (37.0-47.0); HEMOGLOBIN 13.4 G/DL (12.0-16.0); LYMPHOCYTES % (AUTO) 28.4 % (20.0-45.0); MEAN CORPUSCULAR VOLUME 86 FL (80-99); MONOCYTES % (AUTO) 6.8 % (1.0-10.0); NEUTROPHILS % (AUTO) 60.1 % (45.0-75.0); PLATELET COUNT 319 K/UL (150-450); RED BLOOD COUNT 5.04 M/UL (4.20-5.40); WHITE BLOOD COUNT 9.6 K/UL (4.8-10.8)
[2019-02-12 14:31] LABS: ANION GAP 5 mmol/L (5-15); BLOOD UREA NITROGEN 13 mg/dL (7-18); CALCIUM 8.8 MG/DL (8.5-10.1); CARBON DIOXIDE 30 MMOL/L (21-32); CHLORIDE 99 MMOL/L (98-107); CREATININE 0.9 MG/DL (0.55-1.30); SODIUM 134 MMOL/L (136-145)
[2019-02-12] MEDS ORDERED: LORazepam Inj 2mg/ml 1ml IV ONE (14:45)
--- NOTE | 2019-02-12 14:48 | NUR ---
ED Nurse Note:pt. went to CT scan, ativan given
--- NOTE | 2019-02-12 15:13 | NUR ---
ED Nurse Note:pt. is back from CT scan
--- NOTE | 2019-02-12 16:13 | Diagnostic Imaging Report ---
EXAM: CT Neck With Intravenous Contrast CLINICAL HISTORY: MASS TECHNIQUE: Axial computed tomography images of the neck with intravenous contrast. CTDI is 308 mGy and DLP is 720.7 mGy-cm. One or more of the following dose reduction techniques were used: automated exposure control, adjustment of the mA and or kV according to patient size, use of iterative reconstruction technique. COMPARISON: Ultrasound 02 07 2019 FINDINGS: Brain: No mass. No loculated fluid collection. Oropharynx: No significant abnormality. No significant tonsillar enlargement. No peritonsillar abscess. Hypopharynx: No significant abnormality. Larynx: No significant abnormality. Normal epiglottis. Trachea: No significant abnormality. Retropharyngeal space: No significant abnormality. Submandibular parotid glands: No significant abnormality. Glands are normal in size. Thyroid: No significant abnormality. No enlarged or calcified nodules. Bones joints: No acute fracture or malalignment. Soft tissues: No significant abnormality. Vasculature: No acute findings. Lymph nodes: Nonspecific bilateral cervical lymphadenopathy. Lung apices: Unremarkable as visualized. IMPRESSION: Nonspecific bilateral cervical lymphadenopathy. No mass.
--- NOTE | 2019-02-12 16:25 | NUR ---
ER DISCHARGE NOTE: Patient is cleared to be discharged per ERMD, pt is aox4, on room air, with stable vital signs. pt was given dc instructions, pt was able to verbalize understanding, pt id band and iv site removed without complications. pt is able to ambulate with steady gait. pt took all belongings.
[2019-02-12 16:28] VITALS: BP 106/68
== END 2019-02-12 16:25 | disposition home or self-care (01) ==
LOC: EMR 13:59
DX: I88.9 Nonspecific lymphadenitis, unspecified (principal); Z88.8 Allergy status to other drugs, medicaments and biological substances; Z91.018 Allergy to other foods; I10 Essential (primary) hypertension; E11.9 Type 2 diabetes mellitus without complications
CPT/HCPCS: 36415; 70491; 80048; 85025; 96374; 99284; Q9967

== ENCOUNTER 2019-04-11 18:35 | Emergency (ER) | payer MEDICARE, MEDICAID ==
[~2019-04-11] VITALS: Ht 162.6 cm; Wt 142.9 kg
--- NOTE | 2019-04-11 18:55 | NUR ---
ED Nurse Note: Patient arrived to ED from home c/o of asthma exacerbation x 2 hours. Patient AxO x 4, no s/s of acute distress noted. Patient breathing unlabored and steady.
--- NOTE | 2019-04-11 19:02 | NUR ---
HAND-OFF: Report given to Anival Delcid RN.
--- NOTE | 2019-04-11 19:05 | NUR ---
ED Nurse Note: RECEIVED REPORT FROM CHRISTIN HOLBROOK. PT VSS, NAD. WILL CONTINUE TO MONITOR PT.
[2019-04-11] MEDS ORDERED: Albuterol ud Inhalation HHN ONE (19:15)
[2019-04-11] MEDS ORDERED: Ipratropium 0.02% Inh Soln 2.5ml UD HHN ONE (19:15)
--- NOTE | 2019-04-11 19:23 | Emergency Room Report ---
History of Present Illness General Chief Complaint: Asthma Source: Patient (Jluis Merida MD) Present Illness HPI Disclaimer: Please note that this report is being documented using DRAGON technology. This can lead to erroneous entry secondary to incorrect interpretation by the dictating instrument. HPI: 43-year-old female with a history of asthma, sleep apnea presents for evaluation of shortness of breath. Symptoms began 3 hours ago. She notes exertional dyspnea while performing minimally strenuous activities at home such as going up and down the stairs. Denies any chest pain or tightness. Denies lightheadedness, cough, URI symptoms, fever, chills or recent changes in her health. States this is different from her typical shortness of breath that she gets from asthma. She has not taken any inhalers prior to arrival. She is prescribed albuterol and fluticasone. She has nebulizer treatments at home as well. No prior history of PE or DVT. Denies immobilization, hypercoagulable states, long distance travel. PMH: Asthma, obesity, diabetes, EFREN, anxiety PSH: None Allergies: Benzapril Social Hx: Non-smoker (Jluis Merida MD) Allergies: Coded Allergies: TREE NUT (Verified Allergy, Severe, 09/28/17) SOYBEAN (Verified Allergy, Intermediate, 09/28/17) BENAZEPRIL (Verified Allergy, Unknown, 09/28/17) Patient History Now: No (Jluis Merida MD) Nursing Documentation-PMH Past Medical History: No History, Except For Hx Cardiac Problems: No Hx Hypertension: Yes Hx Asthma: Yes Hx COPD: No Hx Diabetes: Yes Hx Cancer: No Hx Gastrointestinal Problems: No Hx Dialysis: No Hx Neurological Problems: No Hx Cerebrovascular Accident: No Hx Seizures: No (Jluis Merida MD) Review of Systems All Other Systems: negative except mentioned in HPI (Jluis Merida MD) Physical Exam Vital Signs Date Time Temp Pulse Resp B/P (MAP) Pulse Ox O2 Delivery O2 Flow Rate FiO2 04/11/19 18:51 98.6 113 20 100/46 (64) 96 Room Air General: Awake and alert, no acute distress HEENT: NC/AT. EOMI. Cardiovascular: Tachycardic. S1 and S2 normal. No murmur appreciated Resp: Normal work of breathing. No cough, wheezing or crackles appreciated Abdomen: Abdomen is soft, nondistended. Nontender. Obese Skin: Intact. No abrasions, laceration or rash over the exposed skin MSK: Normal tone and bulk. Moving all extremities. No obvious deformity. No unilateral calf pain or swelling Neuro: Awake and alert. Mentating appropriately. (Jluis Merida MD) Medical Decision Making ER Course 43-year-old female presents for evaluation of shortness of breath beginning 3 hours ago. Differential includes was not limited to asthma exacerbation, URI, bronchitis, pleurisy, PE, anxiety. Patient is tachycardic but no increased work of breathing, 98% on room air, no wheezing, no crackles appreciated. Appears she has been admitted for similar presentation though thorough work-up did not find a specific cause. Will obtain EKG, labs including d-dimer given her tachycardia. We will give a breathing treatment and Solu-Medrol for possible asthma exacerbation. Laboratory Tests Test 04/11/19 19:25 White Blood Count 10.2 K/UL (4.8-10.8) Red Blood Count 4.59 M/UL (4.20-5.40) Hemoglobin 12.5 G/DL (12.0-16.0) Hematocrit 39.5 % (37.0-47.0) Mean Corpuscular Volume 86 FL (80-99) Mean Corpuscular Hemoglobin 27.2 PG (27.0-31.0) Mean Corpuscular Hemoglobin Concent 31.6 G/DL (32.0-36.0) L Red Cell Distribution Width 11.4 % (11.6-14.8) L Platelet Count 297 K/UL (150-450) Mean Platelet Volume 6.3 FL (6.5-10.1) L Neutrophils (%) (Auto) 61.1 % (45.0-75.0) Lymphocytes (%) (Auto) 27.6 % (20.0-45.0) Monocytes (%) (Auto) 6.4 % (1.0-10.0) Eosinophils (%) (Auto) 3.3 % (0.0-3.0) H Basophils (%) (Auto) 1.7 % (0.0-2.0) D-Dimer 0.43 mg/L FEU (0.00-0.49) Sodium Level 141 MMOL/L (136-145) Potassium Level 4.2 MMOL/L (3.5-5.1) Chloride Level 101 MMOL/L (98-107) Carbon Dioxide Level 27 MMOL/L (21-32) Anion Gap 13 mmol/L (5-15) Blood Urea Nitrogen 9 mg/dL (7-18) Creatinine 0.8 MG/DL (0.55-1.30) Estimate Glomerular Filtration Rate > 60 mL/min (>60) Glucose Level 216 MG/DL (74-106) H Calcium Level 9.1 MG/DL (8.5-10.1) Total Bilirubin 0.3 MG/DL (0.2-1.0) Aspartate Amino Transferase (AST) 39 U/L (15-37) H Alanine Aminotransferase (ALT) 53 U/L (12-78) Alkaline Phosphatase 61 U/L (46-116) Troponin I 0.000 ng/mL (0.000-0.056) Pro-B-Type Natriuretic Peptide 52 pg/mL (0-125) Total Protein 7.5 G/DL (6.4-8.2) Albumin 4.0 G/DL (3.4-5.0) Globulin 3.5 g/dL Albumin/Globulin Ratio 1.1 (1.0-2.7) (Jluis Merida MD) ER Course Patient signed out to me. She presents with dyspnea. She got 1 breathing treatment here. She has been persistently tachycardic in the 100 range. Chest x-ray is unremarkable. CT scan was signed out to me. CT scan was negative for PE or infiltrate. I review her charts from prior visit. Her heart rate has been in the low 102 maximum 115 from her visit in 2019. Only 1 visit was a heart rate 95. Her elevated heart rate may be secondary to albuterol, obesity, anxiety to name a few. No evidence of ACS, PE, dissection to name a few. Will discharge home. (Hayden Bailey MD) EKG Diagnostic Results EKG Time: 19:14 Rate: tachycardiac Rhythm: NSR ST Segments: no acute changes Other Impression Sinus tachycardia, left axis deviation, nonspecific T wave changes. (Jluis Merida MD) Rhythm Strip Diag. Results Rhythm Strip Time: 19:14 EP Interpretation: yes Rate: 110s Rhythm: no PVC's, no ectopy (Jluis Merida MD) Chest X-Ray Diagnostic Results Chest X-Ray Diagnostic Results : Chest X-Ray Ordered: Yes # of Views/Limited/Complete: 1 View Indication: Shortness of Breath EP Interpretation: Yes Interpretation: no consolidation, no effusion, no pneumothorax, no acute cardiopulmonary disease, other - Difficult to interpret fully due to body habitus Impression: No acute disease Electronically Signed by: Electronically signed by Dr. Jluis Merida (Jluis Merida MD) CT/MRI/US Diagnostic Results CT/MRI/US Diagnostic Results : Imaging Test Ordered: CT chest Impression Per radiologist negative (Hayden Bailey MD) Reevaluation Time: 21:44 Last Vital Signs Date Time Temp Pulse Resp B/P (MAP) Pulse Ox O2 Delivery O2 Flow Rate FiO2 04/11/19 18:51 98.6 113 20 100/46 (64) 96 Room Air Reevaluation Impression Labs are returned largely within normal limits. D-dimer is at the upper limit of normal but again within normal limits. The patient has had similar D-dimers in the past and had a CTA last year which was unremarkable. No significant improvement in her symptoms after a breathing treatment. She did receive steroids. Also believing that there might be an anxiety component she was given Ativan but again she remained tachycardic and somewhat short of breath. Patient has been tachycardic on prior hospital admissions as well as had a recent PMD appointment but no further work-up was discussed with the patient to her knowledge. Her lungs remain clear to auscultation without crackles or wheezes. Chest x-ray unremarkable. Must rule out PE at this point with a CTA. Patient was signed out to oncoming physician pending CTA and final disposition. (Jluis Merida MD) Status: improved (Hayden Bailey MD) Disposition: HOME, SELF-CARE Condition: Stable Scripts Prednisone* (PREDNISONE*) 20 Mg Tablet 40 MG ORAL DAILY for 3 Days, #6 TAB Prov: Jluis Merida MD 04/11/19 Patient Instructions: Asthma, Adult Additional Instructions: Follow-up with your doctor within a week. You may need to discuss with your wholesale agronomist regarding your high heart rate. Return if worse. Jluis Merida MD Apr 11, 2019 19:23 Hayden Bailey MD Apr 11, 2019 23:25
--- NOTE | 2019-04-11 19:25 | NUR ---
Note asad in EDM - 04/11/19 at 1935 by [email or web address] ED Nurse Note: IV ESTABLISHED ON LEFT AC WITH 20G. BLOOD DRAWN AND SENT TO LAB WITH URINE. LINE PATENT AND INTACT.
--- NOTE | 2019-04-11 19:25 | NUR ---
ED Nurse Note: IV ESTABLISHED ON LEFT AC WITH 20G. BLOOD DRAWN AND SENT TO LAB WITH URINE. LINE PATENT AND INTACT.
--- NOTE | 2019-04-11 19:33 | NUR ---
Note asad in EDM - 04/11/19 at 1935 by [email or web address] ED Nurse Note: XR AT BEDSIDE.
--- NOTE | 2019-04-11 19:33 | NUR ---
ED Nurse Note: XR AT BEDSIDE.
[2019-04-11 20:16] LABS: BASOPHILS % (AUTO) 1.7 % (0.0-2.0); EOSINOPHILS % (AUTO) 3.3 % (0.0-3.0); HEMATOCRIT 39.5 % (37.0-47.0); HEMOGLOBIN 12.5 G/DL (12.0-16.0); LYMPHOCYTES % (AUTO) 27.6 % (20.0-45.0); MEAN CORPUSCULAR VOLUME 86 FL (80-99); MONOCYTES % (AUTO) 6.4 % (1.0-10.0); NEUTROPHILS % (AUTO) 61.1 % (45.0-75.0); PLATELET COUNT 297 K/UL (150-450); RED BLOOD COUNT 4.59 M/UL (4.20-5.40); RED CELL DISTRIBUTION WIDTH 11.4 % (11.6-14.8); WHITE BLOOD COUNT 10.2 K/UL (4.8-10.8)
[2019-04-11 20:20] LABS: ANION GAP 13 mmol/L (5-15); BLOOD UREA NITROGEN 9 mg/dL (7-18); CALCIUM 9.1 MG/DL (8.5-10.1); CARBON DIOXIDE 27 MMOL/L (21-32); CHLORIDE 101 MMOL/L (98-107); CREATININE 0.8 MG/DL (0.55-1.30); POTASSIUM 4.2 MMOL/L (3.5-5.1); SODIUM 141 MMOL/L (136-145)
[2019-04-11 20:32] LABS: ALANINE AMINOTRANSFERASE 53 U/L (12-78); ALBUMIN/GLOBULIN RATIO 1.1 (1.0-2.7); ALKALINE PHOSPHATASE 61 U/L (46-116); ASPARTATE AMINO TRANSFERASE 39 U/L (15-37); BILIRUBIN,TOTAL 0.3 MG/DL (0.2-1.0)
[2019-04-11 20:48] VITALS: BP 133/54
[2019-04-11] MEDS ORDERED: Solu-MEDROL 125mg Inj IVP ONE (21:30)
[2019-04-11] MEDS ORDERED: LORazepam Inj 2mg/ml 1ml IV ONE (21:30)
[2019-04-11] MEDS ORDERED: Omnipaue 350mg/ml 100ml vial INJ PRN (21:45)
--- NOTE | 2019-04-11 22:06 | NUR ---
ED Nurse Note: PT WENT TO CT VIA WHEELCHAIR ACCOMPANIED BY RATE MARKER
--- NOTE | 2019-04-11 22:20 | NUR ---
ED Nurse Note: PT BACK FROM CT VIA WHEELCHAIR ACCOMPANIED BY FRY COOK
[2019-04-11] MEDS ORDERED: PREDNISONE20 MG ORAL (22:27)
--- NOTE | 2019-04-11 23:03 | Diagnostic Imaging Report ---
ndication: Shortness of breath Technique: IV administration nonionic contrast. Spiral acquisitions obtained from the lung bases to the lung apices. Multiplanar and 3-D reconstructions were generated. Total dose length product 2141 mGycm. CTDIvol(s) 41, 38, 55 mGy. Dose reduction achieved using automated exposure control Comparison: 06/13/2018 Findings: There is good opacification of the pulmonary arteries. No intraluminal filling defects or other findings to suggest acute pulmonary embolus demonstrated. No evidence of thoracic aortic aneurysm or dissection. Upper limits of normal caliber pulmonary arteries. There is four-chamber cardiomegaly but no isolated right ventricular dilatation Minimal linear scarring or atelectasis is seen in the medial right middle lobe. The lungs and pleural spaces are otherwise clear. No masses, infiltrates, or effusions are demonstrated. The visualized portion of the thyroid is enlarged. There is a 15 heterogeneous attenuation in the inferior left thyroid lobe. This is also evident previously. No pericardial effusion. No mediastinal or hilar mass or adenopathy. No axillary or chest wall mass or adenopathy. Included upper abdominal anatomy is unremarkable. Impression: Negative for evidence of acute pulmonary embolus or other acute thoracic pathology Enlarged thyroid with heterogeneous left lower pole. This appears similar to the prior exam. This is been previously worked up by sonography and neck CT, without evidence of mass. Attenuation abnormality probably artifactual This essentially agrees with the preliminary interpretation provided overnight by [facility] teleradiology service. The CT scanner at [facility] is accredited by the [employer] and the scans are performed using protocols designed to limit radiation exposure to as low as reasonably achievable to attain images of sufficient resolution adequate for diagnostic evaluation.
[2019-04-11 23:30] VITALS: BP 125/60
--- NOTE | 2019-04-12 10:45 | Diagnostic Imaging Report ---
Indication: Shortness of breath Technique: One view of the chest Comparison: 06/10/2018 Findings: Body habitus limits evaluation. Lungs and pleural spaces are clear. The heart is borderline enlarged. There is no significant interim change Impression: Borderline cardiomegaly No acute process
== END 2019-04-11 23:30 | disposition home or self-care (01) ==
LOC: EMR 19:28
DX: R06.02 Shortness of breath (principal); E66.9 Obesity, unspecified; Z88.8 Allergy status to other drugs, medicaments and biological substances; E11.9 Type 2 diabetes mellitus without complications; G47.33 Obstructive sleep apnea (adult) (pediatric); F41.9 Anxiety disorder, unspecified; I10 Essential (primary) hypertension; R00.0 Tachycardia, unspecified; Z68.43 Body mass index [BMI] 50.0-59.9, adult
CPT/HCPCS: 36415; 71045; 71275; 80053; 83880; 84484; 85025; 85379; 93005; 96361; 96374; 96375; 99284; J2930; Q9967

== ENCOUNTER 2019-05-02 08:43 | Emergency (ER) | payer MEDICARE, MEDICAID ==
[~2019-05-02] VITALS: Ht 162.6 cm; Wt 144.7 kg
[2019-05-02 08:51] VITALS: BP 116/57
--- NOTE | 2019-05-02 09:13 | NUR ---
ED Nurse Note: pt amb steady gait to brp urine held in ed.
--- NOTE | 2019-05-02 10:08 | NUR ---
ED Nurse Note:visual inspection by md with rn assist. irritation to clitoris noted. pt relates has yeast infection s/s with white dc
[2019-05-02] MEDS ORDERED: METROGEL-VAGINA70 G1 VAGIN (10:22)
--- NOTE | 2019-05-02 10:42 | NUR ---
ED Nurse Note: Pt cleared by health care Provider for discharge. DC instructions/prescription was given and explained to pt and verbalized understanding of teachings. All medical devices such as ID band removed. Pt is AAO x4, ambulatory and left with all personal belongings.
[2019-05-02 10:43] VITALS: BP 116/57
--- NOTE | 2019-05-02 14:49 | Emergency Room Report ---
History of Present Illness General Chief Complaint: Female Urogenital Problems Source: Patient Present Illness HPI Patient presents with complaints of abnormal palpation to her vaginal area Patient reports that she has noticed some discharge recently some irritation and itching sensation today as she was feeling the area In the vaginal area she felt that her clitoral area felt abnormal and had a ' Split' and it Denies any abdominal pain denies any fevers or chills denies any other trauma Allergies: Coded Allergies: TREE NUT (Verified Allergy, Severe, 09/28/17) SOYBEAN (Verified Allergy, Intermediate, 09/28/17) BENAZEPRIL (Verified Allergy, Unknown, 09/28/17) Patient History Past Medical History: see triage record Last Menstrual Period: 04/16/2019 Reviewed Nursing Documentation: PMH: Agreed; PSxH: Agreed Nursing Documentation-PMH Past Medical History: No History, Except For Hx Cardiac Problems: No Hx Hypertension: Yes Hx Asthma: Yes Hx COPD: No Hx Diabetes: Yes Hx Cancer: No Hx Gastrointestinal Problems: No Hx Dialysis: No Hx Neurological Problems: No Hx Cerebrovascular Accident: No Hx Seizures: No Review of Systems All Other Systems: negative except mentioned in HPI Physical Exam Vital Signs Date Time Temp Pulse Resp B/P (MAP) Pulse Ox O2 Delivery O2 Flow Rate FiO2 05/02/19 08:51 98.4 102 16 116/57 (76) 97 Room Air Sp02 EP Interpretation: reviewed, normal General Appearance: well appearing, no apparent distress Head: normocephalic, atraumatic Eyes: bilateral eye PERRL, bilateral eye EOMI ENT: EOM grossly intact Neck: supple Respiratory: lungs clear Cardiovascular #1: regular rate, rhythm Gastrointestinal: non tender, soft Genitourinary: other - External exam with female nurse at bedside reveals some mild inflammatory changes and mild erythema to the genital region, no other laceration or anomaly is noted Musculoskeletal: normal inspection Neurologic: alert, oriented x3 Skin: other - As above Lymphatic: no adenopathy Medical Decision Making Diagnostic Impression: Primary Impression: vaginitis ER Course Given the history exam and findings patient appears to have findings consistent with vaginitis Given some of the irritation patient likely feels some of the swelling as the abnormality Patient is provided with medication symptomatically requires close outpatient follow-up Last Vital Signs Date Time Temp Pulse Resp B/P (MAP) Pulse Ox O2 Delivery O2 Flow Rate FiO2 05/02/19 10:43 98.4 82 16 116/57 97 Room Air Status: improved Disposition: HOME, SELF-CARE Condition: Stable Scripts Metronidazole* (METROGEL-VAGINAL*) 70 Gm Gel.w.appl 1 APPL VAGIN EVERY 12 HOURS for 7 Days, #70 GM Prov: Michael Dobbins DO 05/02/19 Referrals: NON PHYSICIAN (PCP) [facility] Junaid Ramirez [facility]. [facility] Patient Instructions: Vaginitis Additional Instructions: Patient is provided with the discharge instructions notified to follow up with primary doctor in the next 2-3 days otherwise return to the er with any worsening symptoms. Please note that this report is being documented using [email or web address] technology. This can lead to erroneous entry secondary to incorrect interpretation by the dictating instrument. Michael Dobbins DO May 02, 2019 14:49
== END 2019-05-02 10:50 | disposition home or self-care (01) ==
LOC: EMR 10:47
DX: N76.0 Acute vaginitis (principal); I10 Essential (primary) hypertension; J45.909 Unspecified asthma, uncomplicated; E11.9 Type 2 diabetes mellitus without complications; Z91.018 Allergy to other foods; Z88.8 Allergy status to other drugs, medicaments and biological substances
CPT/HCPCS: 99283

== ENCOUNTER 2019-06-19 17:34 | Emergency (ER) | payer MEDICARE, MEDICAID ==
[~2019-06-19] VITALS: Ht 160 cm; Wt 142.0 kg
[~2019-06-19 17:34] MED LIST changes: +METROGEL-VAGINA70 G1 VAGIN
--- NOTE | 2019-06-19 17:36 | Emergency Room Report ---
History of Present Illness General Chief Complaint: Upper Respiratory Illness Source: Patient (Akiko Calderon) Present Illness HPI 44-year-old morbidly obese female with history of type 2 diabetes taking medication and insulin as well as hypertension and asthma here complaining of 5 days of shortness of breath. Denies any cough and congestion at this time however reports that did have congestion few days ago. Denies any fever and chills, abdominal pain, sore throat. As a intermittent patient says that I need to stop and give her several minutes to finish the paperwork. Patient is demanding request to be seen inside the hospital. Patient did not know which pandemic I was talking about. Denies any recent travel. Sitting comfortably with stable vital signs. 93% oxygenation is normal for her as she reports that she always has similar oxygenation. Denies any chest pain chest pain radiation. Denies abdominal pain, nausea vomiting and diarrhea. Is requesting steroids regardless of me explaining to her that not indicated at this time. Denies . COVID-19 risk:Contact w/high r: No COVID-19 risk:Travel to affect: No Has patient experienced krishnan: Yes Coronavirus symptoms experienc: Shortness of Breath (Akiko Calderon) Allergies: Coded Allergies: TREE NUT (Verified Allergy, Severe, 09/28/17) SOYBEAN (Verified Allergy, Intermediate, 09/28/17) BENAZEPRIL (Verified Allergy, Unknown, 09/28/17) Uncoded Allergies: BENAZAPRIL (Allergy, Unknown, 06/19/19) Patient History Past Medical History: see triage record Past Surgical History: none Pertinent Family History: none Last Menstrual Period: unk Now: No Immunizations: UTD Reviewed Nursing Documentation: PMH: Agreed; PSxH: Agreed (Akiko Calderon) Nursing Documentation-PMH Hx Cardiac Problems: No Hx Hypertension: Yes Hx Asthma: Yes Hx COPD: No Hx Diabetes: Yes Hx Cancer: No Hx Gastrointestinal Problems: No Hx Dialysis: No Hx Neurological Problems: No Hx Cerebrovascular Accident: No Hx Seizures: No (Akiko Calderon) Review of Systems All Other Systems: negative except mentioned in HPI (Akiko Calderon) Physical Exam Vital Signs Date Time Temp Pulse Resp B/P (MAP) Pulse Ox O2 Delivery O2 Flow Rate FiO2 3/22/20 17:14 97.7 107 19 93 Room Air Sp02 EP Interpretation: reviewed, normal General Appearance: no apparent distress, alert, GCS 15, non-toxic Head: normocephalic, atraumatic Eyes: bilateral eye normal inspection, bilateral eye PERRL ENT: hearing grossly normal, normal pharynx, no angioedema, normal voice Neck: full range of motion, supple/symm/no masses Respiratory: chest non-tender, lungs clear, normal breath sounds, no rhonchi, no respiratory distress, no retraction, no wheezing, speaking full sentences Cardiovascular #1: regular rate, rhythm, no edema Gastrointestinal: non tender, soft Rectal: deferred Genitourinary: no CVA tenderness Musculoskeletal: normal inspection, back normal, no calf tenderness, pelvis stable Neurologic: alert, motor strength/tone normal, oriented x3, sensory intact, responsive, speech normal Skin: no rash Lymphatic: no adenopathy (Akiko Calderon) Medical Decision Making PA Attestation All diagnoses and treatment plans were reviewed and discussed with my supervising physician Dr. Montes (Akiko Calderon) Diagnostic Impression: Primary Impression: Dyspnea Additional Impression: URI (upper respiratory infection) ER Course 44-year-old morbidly obese female with history of type 2 diabetes taking medication and insulin as well as hypertension and asthma here complaining of 5 days of shortness of breath. Denies any cough and congestion at this time however reports that did have congestion few days ago. Denies any fever and chills, abdominal pain, sore throat. As a intermittent patient says that I need to stop and give her several minutes to finish the paperwork. Patient is demanding request to be seen inside the hospital. Patient did not know which pandemic I was talking about. Denies any recent travel. Sitting comfortably with stable vital signs. 93% oxygenation is normal for her as she reports that she always has similar oxygenation. Denies any chest pain chest pain radiation. Denies abdominal pain, nausea vomiting and diarrhea. Is requesting steroids regardless of me explaining to her that not indicated at this time. Denies . Ddx considered but are not limited to: Coronavirus, strep pharyngitis, URI, tonsillitis, peritonsillar abscess, influneza Vital signs: are WNL, pt. is afebrile H&PE are most consistent with: Dyspnea and URI ORDERS: At this time no further testing or imaging needed patient is low risk and sitting comfortably with stable vital signs no retractions noted in no distress. Medrol Dosepak as patient insisted, Qvar in addition to her albuterol inhaler which she has at home, guaifenesin ED INTERVENTIONS: None required at this time. DISCHARGE: At this time pt. is stable for d/c to home. Will provide printed patient care instructions, and any necessary prescriptions. Care plan and follow up instructions have been discussed with the patient prior to discharge. My coronavirus discharge. Patient return to the emergency room if difficulty breathing, chest pain, severe shortness of breath. (Akiko Calderon) Last Vital Signs Date Time Temp Pulse Resp B/P (MAP) Pulse Ox O2 Delivery O2 Flow Rate FiO2 06/19/19 17:34 107 19 Room Air 06/19/19 17:14 97.7 93 (Akiko Calderon) Disposition: HOME, SELF-CARE Condition: Stable Scripts Acetaminophen* (TYLENOL EXTRA STRENGTH*) 500 Mg Tablet 500 MG ORAL Q8H PRN for Prn Headache/Temp > 101, #30 TAB 0 Refills Prov: Akiko Calderon 06/19/19 Guaifenesin* (GUAIFENESIN*) 100 Mg/5 Ml Liquid 15 ML ORAL Q8H, #120 ML 0 Refills Prov: Akiko Calderon 06/19/19 Beclomethasone Dipropionate 40MCG Oral Inh (QVAR 40*) 7.3 Gm Aer.w.adap 2 PUFFS INH TWICE A DAY, #10 GM 0 Refills Prov: Akiko Calderon 06/19/19 Methylprednisolone (Methylprednisolone*) 4MG Dspk 4 MG ORAL DIRECTED for 6 Days, #21 EA 0 Refills Day 1: Two tablets before breakfast, one after lunch, one after dinner, and two at bedtime. If started late in the day, take all six tablets at once or divide into two or three doses, unless otherwise directed by prescriber. Day 2: One tablet before breakfast, one after lunch, one after dinner, and two at bedtime Day 3: One tablet before breakfast, one after lunch, one after dinner, and one at bedtime Day 4: One tablet before breakfast, one after lunch, and one at bedtime Day 5: One tablet before breakfast and one at bedtime Day 6: One tablet before breakfast Prov: Akiko Calderon 06/19/19 Patient Instructions: Shortness of Breath, [id number], Upper Respiratory Infection, Adult Additional Instructions: Take medication as directed, follow-up with your primary doctor, you need to stay home for self quarantine due to Covid 19 precautions for 14 days Akiko Calderon Jun 19, 2019 17:36 Joel Montes MD Jun 23, 2019 03:09
[2019-06-19] MEDS ORDERED: MEDROL DOSEPAK4 MG ORAL (17:37)
[2019-06-19] MEDS ORDERED: QVAR7.3 GM INH (17:37)
[2019-06-19] MEDS ORDERED: TYLENOL EXTRA500 MG ORAL (17:37)
[2019-06-19] MEDS ORDERED: GUAIFENESI100 MG/5 M ORAL (17:37)
[2019-06-19 17:57] VITALS: BP 131/76
== END 2019-06-19 17:57 | disposition home or self-care (01) ==
LOC: EMR 17:56
DX: J06.9 Acute upper respiratory infection, unspecified (principal); R06.00 Dyspnea, unspecified; I10 Essential (primary) hypertension; E11.9 Type 2 diabetes mellitus without complications; Z88.8 Allergy status to other drugs, medicaments and biological substances; Z91.018 Allergy to other foods
CPT/HCPCS: 99282

== ENCOUNTER 2019-10-06 13:18 | Emergency (ER) | payer MEDICARE, MEDICAID ==
[~2019-10-06] VITALS: Ht 160 cm; Wt 150.6 kg
[~2019-10-06 13:18] MED LIST changes: +GUAIFENESI100 MG/5 M ORAL; +QVAR7.3 GM INH
[2019-10-06 13:40] VITALS: BP 110/54
--- NOTE | 2019-10-06 14:32 | Emergency Room Report ---
History of Present Illness General Chief Complaint: Upper Respiratory Illness Present Illness HPI 44 YO female presents to the ED C/O only SOB on exertion. Pt. reports onset at [employer] office after receiving asthma injection which is not a new procedure to her. Pt. reports when she went to leave she Circle SOB. and that she gets SOB after getting up and walking. Pt. denies cough, wheezes, CP, pain or palpitations. She denies dizziness, sleepiness, body aches, fevers or chills. She reports hx of anxiety for which she states she takes gabapentin for without relief. Pt. reports her symptoms do not feel like an asthma attack. She states She does not smoke or use estrogen. She denies leg swelling, calf pain or recent travel/immobilization. PT. denies paresthesias. She denies ST. She reports no symptoms at rest. Allergies: Coded Allergies: TREE NUT (Verified Allergy, Severe, 09/28/17) SOYBEAN (Verified Allergy, Intermediate, 09/28/17) BENAZEPRIL (Verified Allergy, Unknown, 09/28/17) Uncoded Allergies: BENAZAPRIL (Allergy, Unknown, 06/19/19) COVID-19 Screening Contact w/high risk pt: No Recent Travel to affected area: No Experienced COVID-19 symptoms?: Yes COVID-19 symptoms experienced: Shortness of Breath COVID-19 Testing performed LEAD GENERATOR: No Patient History Past Medical History: see triage record, HTN, asthma, psych hx Past Surgical History: none Pertinent Family History: none Last Menstrual Period: 09/22/2019 Now: No Reviewed Nursing Documentation: PMH: Agreed; PSxH: Agreed Nursing Documentation-PMH Hx Cardiac Problems: No Hx Hypertension: Yes Hx Asthma: Yes Hx COPD: No Hx Diabetes: Yes Hx Cancer: No Hx Gastrointestinal Problems: No Hx Dialysis: No Hx Neurological Problems: No Hx Cerebrovascular Accident: No Hx Seizures: No Review of Systems All Other Systems: negative except mentioned in HPI Physical Exam Vital Signs Date Time Temp Pulse Resp B/P (MAP) Pulse Ox O2 Delivery O2 Flow Rate FiO2 10/06/19 13:22 98.1 102 18 110/54 (72) 98 Room Air Sp02 EP Interpretation: reviewed, normal General Appearance: no apparent distress, alert, GCS 15, non-toxic, obese - morbidly Head: normocephalic, atraumatic Eyes: bilateral eye normal inspection, bilateral eye PERRL ENT: hearing grossly normal, normal voice Neck: full range of motion Respiratory: chest non-tender, lungs clear, normal breath sounds, no respiratory distress, no accessory muscle use, no wheezing, speaking full sentences Cardiovascular #1: regular rate, rhythm, no edema, normal capillary refill Musculoskeletal: normal range of motion, gait/station normal, non-tender Neurologic: alert, motor strength/tone normal, oriented x3, sensory intact, responsive, speech normal Psychiatric: judgement/insight normal Skin: no rash, normal color Medical Decision Making PA Attestation Dr. Munoz Is my supervising Physician whom patient management has been discussed with. Diagnostic Impression: Primary Impression: SOBOE (shortness of breath on exertion) ER Course 44 YO female presents to the ED C/O only SOB on exertion. Pt. reports onset at [employer] office after receiving asthma injection which is not a new procedure to her. Pt. reports when she went to leave she Circle SOB. and that she gets SOB after getting up and walking. Pt. denies cough, wheezes, CP, pain or palpitations. She denies dizziness, sleepiness, body aches, fevers or chills. She reports hx of anxiety for which she states she takes gabapentin for without relief. Pt. reports her symptoms do not feel like an asthma attack. She states She does not smoke or use estrogen. She denies leg swelling, calf pain or recent travel/immobilization. PT. denies paresthesias. She denies ST. She reports no symptoms at rest. Ddx considered but are not limited to SC, PE, atelectasis, CHF, asthma, anxiety , hyper-ventilation syndrome, pneumonia, costochondritis, chest wall pain, No acute pulmonary or cardiac causes at this time patient is in no acute distress her oxygen saturation is within normal limits, patient is not in any respiratory distress at this time Vital signs: are WNL pt. is afebrile, not hypoxic. H&PE are most consistent with SOB on exertion in a morbidly obese patient with some Cardiac RF's. Pt. NAD, non-toxic in appearance. will do laboratory and imaging as part of work up. ORDERS: -EKG: NSR 96 beats per minute, no acute ST changes -CBC: WNL -CMP:WNL -Troponin:WNL -BNP: WNL -D-Dimer: WNL ED INTERVENTIONS: --Ativan PO D-dimer negative which rules out PE. Normal EKG. Troponin was negative and BNP was normal which rules out acute cardiac cause. COVID-19 is considered as well. pt. has 98% O2 saturation and a normal D-Dimer both of which when abnormal are strong indicators during acute COVID-19 disease and hypoxemia. -I do not identify an emergent condition at this time. With current presentation , pt. is stable for close outpatient follow up and conservative treatment. D/ w pt. to return promptly to ED with worsening or new symptoms.- Pt. verbalizes' understanding and agreement with proposed treatment plan. d/w pt. regarding results and need for further evaluation of her symptoms on an outpatient basis. This patient was evaluated in the context of the global COVID-19 pandemic, which necessitated consideration that the patient might be at risk for infection with the SARS-COV-2 virus that causes COVID-19. Institutional protocols and algorithms that pertaining to the evaluation of patients at risk for COVID-19 are in a state of rapid change based on information released by multiple regulatory bodies including the CDC and federal and state organizations. These policies and algorithms were followed during the patient' s care in the emergency department DISCHARGE: At this time pt. is stable for d/c to home. s. Will provide printed patient care instructions, and any necessary prescriptions. Care plan and follow up instructions have been discussed with the patient prior to discharge. Labs Test 10/06/19 14:09 White Blood Count 8.3 K/UL (4.8-10.8) Red Blood Count 4.21 M/UL (4.20-5.40) Hemoglobin 11.1 G/DL (12.0-16.0) Hematocrit 36.8 % (37.0-47.0) Mean Corpuscular Volume 87 FL (80-99) Mean Corpuscular Hemoglobin 26.3 PG (27.0-31.0) Mean Corpuscular Hemoglobin Concent 30.1 G/DL (32.0-36.0) Red Cell Distribution Width 14.2 % (11.6-14.8) Platelet Count 331 K/UL (150-450) Mean Platelet Volume 6.2 FL (6.5-10.1) Neutrophils (%) (Auto) 66.1 % (45.0-75.0) Lymphocytes (%) (Auto) 26.6 % (20.0-45.0) Monocytes (%) (Auto) 6.7 % (1.0-10.0) Eosinophils (%) (Auto) 0.0 % (0.0-3.0) Basophils (%) (Auto) 0.5 % (0.0-2.0) D-Dimer 0.35 mg/L FEU (0.00-0.49) Sodium Level 143 MMOL/L (136-145) Potassium Level 4.4 MMOL/L (3.5-5.1) Chloride Level 105 MMOL/L (98-107) Carbon Dioxide Level 26 MMOL/L (21-32) Anion Gap 13 mmol/L (5-15) Blood Urea Nitrogen 9 mg/dL (7-18) Creatinine 0.8 MG/DL (0.55-1.30) Estimat Glomerular Filtration Rate > 60 mL/min (>60) Glucose Level 134 MG/DL (74-106) Calcium Level 8.9 MG/DL (8.5-10.1) Total Bilirubin 0.3 MG/DL (0.2-1.0) Aspartate Amino Transf (AST/SGOT) 17 U/L (15-37) Alanine Aminotransferase (ALT/SGPT) 32 U/L (12-78) Alkaline Phosphatase 51 U/L (46-116) Troponin I 0.005 ng/mL (0.000-0.056) Pro-B-Type Natriuretic Peptide 46 pg/mL (0-125) Total Protein 7.5 G/DL (6.4-8.2) Albumin 3.9 G/DL (3.4-5.0) Globulin 3.6 g/dL Albumin/Globulin Ratio 1.1 (1.0-2.7) EKG Diagnostic Results EP Interpretation: Dr. Munoz Rate: normal - 96 bpm Rhythm: NSR ST Segments: no acute changes ASA given to the pt in ED: No PA Scribe Text This Interpretation was scribed by JEN Crowder. Chest X-Ray Diagnostic Results Chest X-Ray Diagnostic Results : Chest X-Ray Ordered: Yes # of Views/Limited/Complete: 1 View Indication: Shortness of Breath EP Interpretation: Yes JEN Xray: Interpretation reviewed, by supervising MD, and agrees with findings. Interpretation: no consolidation, no effusion, no pneumothorax, no acute cardiopulmonary disease, other - poor inspiration, enlarged heart size no changes from previous study Impression: No acute disease Electronically Signed by: Sultana Crowder PA-C Last Vital Signs Date Time Temp Pulse Resp B/P (MAP) Pulse Ox O2 Delivery O2 Flow Rate FiO2 10/06/19 13:40 102 18 Room Air 10/06/19 13:40 98.1 110/54 98 Disposition: HOME, SELF-CARE Condition: Stable Scripts Prednisone* (PREDNISONE*) 20 Mg Tablet 40 MG ORAL DAILY for 3 Days, #6 TAB Prov: Sultana Crowder 10/06/19 Referrals: NOT CHOSEN IPA/MD,REFERRING (PCP) Patient Instructions: Shortness of Breath Additional Instructions: ~ ~ An emergent medical condition has not been identified based on this patients presentation, exam and any necessary testing/imaging. The patient is determined to be stable for outpatient follow-up and management of symptoms by a primary care provider. Take medications as directed. --Steroids will affect your blood glucose levels. Follow up with a Primary Care Provider in 3-5 days, even if your symptoms have resolved. Recommend pulmonology as well as cardiology evaluation Return sooner to ED if new symptoms occur, or current symptoms become worse. - Please note that this Emergency Department Report was dictated using [employer] mechanical engineer technology software, occasionally this can lead to erroneous entry secondary to interpretation by the dictation equipment. Sultana Crowder Oct 06, 2019 14:32
[2019-10-06 14:38] LABS: ANION GAP 13 mmol/L (5-15); BLOOD UREA NITROGEN 9 mg/dL (7-18); CALCIUM 8.9 MG/DL (8.5-10.1); CARBON DIOXIDE 26 MMOL/L (21-32); CHLORIDE 105 MMOL/L (98-107); CREATININE 0.8 MG/DL (0.55-1.30); POTASSIUM 4.4 MMOL/L (3.5-5.1); SODIUM 143 MMOL/L (136-145)
[2019-10-06 14:44] LABS: BASOPHILS % (AUTO) 0.5 % (0.0-2.0); HEMATOCRIT 36.8 % (37.0-47.0); HEMOGLOBIN 11.1 G/DL (12.0-16.0); LYMPHOCYTES % (AUTO) 26.6 % (20.0-45.0); MEAN CORPUSCULAR VOLUME 87 FL (80-99); MONOCYTES % (AUTO) 6.7 % (1.0-10.0); NEUTROPHILS % (AUTO) 66.1 % (45.0-75.0); PLATELET COUNT 331 K/UL (150-450); RED BLOOD COUNT 4.21 M/UL (4.20-5.40); RED CELL DISTRIBUTION WIDTH 14.2 % (11.6-14.8); WHITE BLOOD COUNT 8.3 K/UL (4.8-10.8)
[2019-10-06] MEDS ORDERED: LORazepam 1mg tab ORAL ONE (14:45)
[2019-10-06 14:49] LABS: ALANINE AMINOTRANSFERASE 32 U/L (12-78); ALBUMIN 3.9 G/DL (3.4-5.0); ALBUMIN/GLOBULIN RATIO 1.1 (1.0-2.7); ALKALINE PHOSPHATASE 51 U/L (46-116); ASPARTATE AMINO TRANSFERASE 17 U/L (15-37); BILIRUBIN,TOTAL 0.3 MG/DL (0.2-1.0)
[2019-10-06] MEDS ORDERED: Omnipaque 350 100ml vial INJ PRN (15:30)
[2019-10-06] MEDS ORDERED: PREDNISONE20 MG ORAL (15:44)
[2019-10-06 15:56] VITALS: BP 115/56
--- NOTE | 2019-10-06 16:43 | Diagnostic Imaging Report ---
Indication: Shortness of breath Technique: One view of the chest Comparison: 04/11/2019 Findings: Heart is enlarged. No definite infiltrates, effusions, or congestion very no significant change Impression: Cardiomegaly. No definite acute process
== END 2019-10-06 15:58 | disposition home or self-care (01) ==
LOC: EDBD 13:18 → EMR 13:29
DX: R06.02 Shortness of breath (principal); J45.909 Unspecified asthma, uncomplicated; I10 Essential (primary) hypertension; E11.9 Type 2 diabetes mellitus without complications; E66.01 Morbid (severe) obesity due to excess calories; Z88.8 Allergy status to other drugs, medicaments and biological substances; Z91.018 Allergy to other foods; Z68.43 Body mass index [BMI] 50.0-59.9, adult
CPT/HCPCS: 36415; 71045; 80053; 83880; 84484; 85025; 85379; 93005; 99283